=== PATIENT | female | born 1940 | race Caucasian/White ===

== ENCOUNTER 2017-08-21 10:24 | Emergency (ER) | payer MEDICARE, OTHER ==
[2017-08-21 10:43] VITALS: BP 141/48
[2017-08-21] MEDS ORDERED: HYDROcodone/ACETAMIN 5-325 MG* 1 TAB PO ONE (12:55)
--- NOTE | 2017-08-21 13:02 | ED ---
Skin Complaint - HPI Summary HPI Summary: Patient presents to the ED with CC of left lateral lower leg wound which has been worsening. She arrives with family who state she was bitten by a insect/ spider 9-10 days ago and was seen at the wound clinic on 08/14/17. She was placed on Clindamycin 500mg BID at that time and the wounds were cleansed and dressed. She returned yesterday for a re-check and family notes the wound has been getting worse. Wound clinic agreed and placed her on a cream. She states this cream has made her wound worse and is causing worsening pain. She notes to pain at 8/10 not improved on Tramadol. She is a patient of Dr. Maurer, Dr. Wing and Dr. Bailey and sees the wound clinic. She has multiple co- morbidities including diabetes, PAD, PVD, cancer. She notes to some nausea with the medication of tramadol and sometimes spontaneously. Wound: Well demarcated erythematous area with full thickness tissue loss measuring 4.5x5cm without eschar with yellow epithelial tissue. Subcutaneous fat not visible; destruction does not extend into muscle. 1.5x2cm Deeper full thickness tissue loss with the base of the ulcer is covered by slough with surrounding eschar. Suspected deep tissue injury. Purple localized area of discolored intact skin surrounding the wound. Afebrile, VS stable. She is requesting better pain control and would like to DC tramadol. - History of Current Complaint Chief Complaint: EDExtremityLower Time Seen by Provider: 08/21/17 11:34 Stated Complaint: LT LEG WOUND RECHECK Hx Obtained From: Patient Onset/Duration: Started Weeks Ago Skin Exposure Onset/Duration: Weeks Ago Timing: Constant Onset Severity: Moderate Current Severity: Moderate Pain Intensity: 8 Pain Scale Used: 0-10 Numeric Skin Location: Discrete - left lateral lower extremity just proximal to the ankle joint Character: Pain, Redness Aggravating Symptom(s): Nothing Alleviating Symptom(s): Nothing Associated Signs & Symptoms: Nausea Related History: Trauma, Insect Bite/Sting, Diabetes, PVD, Extremes of Age - Additional Pertinent History Primary Care Physician: [id number] - Allergy/Home Medications Allergies/Adverse Reactions: Allergies Allergy/AdvReac Type Severity Reaction Status Date / Time Sulfa Drugs Allergy Severe Difficulty Verified 08/01/15 08:05 Breathing PMH/Surg Hx/FS Hx/Imm Hx Previously Healthy: No - see HPI Endocrine/Hematology History: Reports: Hx Diabetes - DMI II Cardiovascular History: Reports: Hx Hypertension, Other Cardiovascular Problems/ Disorders - ATRIAL FIBRULATION Denies: Hx Pacemaker/ICD Musculoskeletal History: Reports: Hx Arthritis - HIP,, Other Musculoskeletal History - RIGHT HIP BOTHERS HER AFTER WALKING,PAIN DOWN LEG,NO XRAYS Sensory History: Reports: Hx Contacts or Glasses - GLASSES, Hx Glaucoma Opthamlomology History: Reports: Hx Contacts or Glasses - GLASSES, Hx Glaucoma Psychiatric History: Denies: Hx Panic Disorder - Cancer History Hx Chemotherapy: No Hx Radiation Therapy: No - Surgical History Surgery Procedure, Year, and Place: [facility]-2-3 YRS AGO,SNARE,CATARACTS , TEENAGER-ACCESSORY BONE ON ANKLE, D+C'S Hx Anesthesia Reactions: No - Immunization History Date of Tetanus Vaccine: UNKNOWN Date of Influenza Vaccine: 2011 Hx Pertussis Vaccination: No Immunizations Up to Date: Unable to Obtain/Confirm Infectious Disease History: Yes Infectious Disease History: Denies: Traveled Outside the [place] in Last 30 Days - Social History Occupation: Retired Lives: With Family Alcohol Use: Rare Alcohol Amount: WINE 2-3 Hx Substance Use: No Substance Use Type: Reports: None Hx Tobacco Use: Yes Smoking Status (MU): Former Smoker Have You Smoked in the Last Year: No Review of Systems - ROS Summary Review of Systems Summary: Constitutional: The patient denies fever, ROUSE. HEENT: Head: The patient denies headaches or dizziness. Eyes: The patient denies diplopia, blurry vision, eye pain, eye discharge, photophobia. Throat: The patient denies sore throats or hoarseness. Cardiovascular: The patient denies chest pain, palpitations, syncope, night cramps, or orthostasis. Respiratory: The patient denies cough, sputum production, hemoptysis, dyspnea, wheezing. Gastrointestinal: The patient denies odynophagia, dysphagia, hematemesis, melenemesis. Denies abdominal pain, nausea or vomiting. Denies constipation or diarrhea. Genitourinary: Patient denies dysuria, hematuria, or pyuria. Patient denies back pain. Denies vaginal discharge, vaginal bleeding. Denies other urinary symptoms. Endocrine: The patient denies polydipsia, polyuria, or polyphagia. Muscles: The patient denies myalgia, strain or weakness. Joints: The patient denies arthralgia and/or arthritis. Neurologic: The patient denies headache, loss of consciousness, or seizure. Dermatologic: The patient denies hyperpigmentation, rash, or photosensitivity. Skin: Unhealing wound: SEE HPI Constitutional: Negative Negative: Fever, Chills, Fatigue, Skin Diaphoresis Eyes: Negative Cardiovascular: Negative Respiratory: Negative Negative: Shortness Of Breath, Cough Positive: Nausea. Negative: Abdominal Pain, Vomiting, Diarrhea Genitourinary: Negative Positive: no symptoms reported, see HPI Positive: Arthralgia - lower extremity, Myalgia Positive: Other - see HPI Neurological: Negative Psychological: Normal All Other Systems Reviewed And Are Negative: Yes Physical Exam - Summary Physical Exam Summary: Appearance: WDW, comfortable, pleasant, alert Skin: Soft dry skin. PVD. PAD. Cap refill <2. Pulses + 2 bilaterally. Well demarcated erythematous area with full thickness tissue loss measuring 4.5x5cm without eschar with yellow epithelial tissue. Subcutaneous fat not visible; destruction does not extend into muscle. 1.5x2cm Deeper full thickness tissue loss with the base of the ulcer is covered by slough with surrounding eschar. Suspected deep tissue injury. Purple localized area of discolored intact skin surrounding the wound. Increasing erythema/cellulitis of the surrounding skin > 2 cm per family; No induration of surrounding skin; no lymphangitis, there is not a large amount of drainage from the area. Wound is without odor. Eyes: EDA, EOMI, Conjunctiva pink with no redness or exudates. Mouth: Dentition without lesions. Moist mucosa Neck: Full range of motion. Palpable thyroid. Trachea at midline. No lymphadenopathy. Pulm: Chest symmetrical expansion. No deformities on posterior chest wall. Lungs clear to auscultation and percussion, without adventitious sounds. CV: No JVD. No deformities on anterior chest wall. Heart soundsRRR, Normal S1 and single S2. No S3, S4, rubs, or murmurs. Carotids 2+ bilaterally without bruits. . exam not performed Musculoskeletal: Flexion and extension of neck limited d/t pain. Brudzynski and Kernig sign negative. No deformities noted. Pulses full and equal. Neuro: Motor strength is 5/5 in upper and lower extremities bilaterally. A&OX3 Psych: Logical, coherent Triage Information Reviewed: Yes Vital Signs On Initial Exam: Initial Vitals Temp Pulse Resp BP Pulse Ox 98.6 F 54 20 141/48 97 08/21/17 10:40 08/21/17 10:40 08/21/17 10:40 08/21/17 10:40 08/21/17 10:40 Vital Signs Reviewed: Yes Appearance: Positive: Well-Appearing, Well-Nourished, Pain Distress Skin: Positive: Warm - see HPI, Tender, Purpura, Weeping Skin/Lesions Eyes: Positive: Normal, EDA ENT: Positive: Normal ENT inspection, Hearing grossly normal Neck: Positive: Supple, No Lymphadenopathy Respiratory/Lung Sounds: Positive: Clear to Auscultation, Breath Sounds Present Cardiovascular: Positive: Normal, RRR Musculoskeletal: Positive: Normal, Strength/ROM Intact Neurological: Positive: Sensory/Motor Intact, Alert, Oriented to Person Place, Time, Speech Normal Psychiatric: Positive: Normal AVPU Assessment: Alert - [place]ise[place] Coma Scale Best Eye Response: 4 - Spontaneous Best Motor Response: 6 - Obeys Commands Best Verbal Response: 5 - Oriented Diagnostics - Vital Signs Vital Signs Temp Pulse Resp BP Pulse Ox 08/21/17 10:40 98.6 F 54 20 141/48 97 - Laboratory Lab Statement: Any lab studies that have been ordered have been reviewed, and results considered in the medical decision making process. Re-Evaluation - Re-Evaluation First Eval Change: Improved - improved since NORCO Course/Dx - Course Course Of Treatment: Patient arrives to the ED with CC of left lateral lower extremity wound just proximal to the ankle joint with worsening symptoms. Conversation with family regarding care of wound and other co-morbidities the patient is currently dealing with. Long conversation to assess wound and the care she has been receiving. It was explained to patient and family d/t wound not improving and becoming now worse x 2 days despite the new cream medication, I have encouraged her to reach out to wound clinic to see if they are able to assess more frequently (twice per week) until improvement is achieved. This is d/t her significant co-morbidities and deferment of quick improvement. Family spoke with Dr. Gimenez during ED visit and Madelin at wound clinic who agree to see her on / of next week along with a MRI to assess for osteomyelitis. They will follow up with cardiology and Dr. Marcos in infectious disease next week as well. I am providing them a referral to Dr. Marcos as is the wound clinic. Culture was obtained from the wound 2 days prior so will not obtain another culture at this time. They are most concerned with pain control. I have discussed at length the risks and benefits of switching to an opioid. She did not have good pain control on Tramadol or Codeine. Provider is willing to provide a max 5 days worth or NORCO 5-235 Q6H with a close follow up for further pain management as Dr. Wing sees fit. Tramadol to Opioid Conversion ratio was assessed. Q6H should provide better pain control without excess side effects. They agree with this plan. Close return precautions given and side effects explained. Also provided a script for Zofran for any opioid- induced nausea. The wound was measured to assess for staging purposes and worsening infection or improvement. She is feeling improved on discharge. Family is OK with plan. The wound dressing was changed. Triple abx ointment applied and non-adhesive stick gauze applied to wound with wrap. VNS service will begin to change the bandages at home starting next week. - Differential Diagnoses - Skin Complaint Differential Diagnoses: Abscess, Other - cellulitis, eschar, deep tissue wound - Diagnoses Provider Diagnoses: Chronic wound of extremity Discharge - Discharge Plan Condition: Stable Disposition: HOME Prescriptions: HYDROcodone/ACETAMIN 5-325 MG* [[place] 5-325 TAB*] 1 tab PO Q6H PRN #20 tab MDD 4 PRN Reason: Pain Ondansetron ODT TAB* [Zofran 4 MG Odt TAB*] 4 mg PO Q6H PRN #20 tab.odt MDD 4 PRN Reason: Nausea Patient Education Materials: Wound Infection (ED), Chronic Wounds (ED) Referrals: Chemo ANGELES,Jamir Ballard [Medical Doctor] - Navya Stanford NP [Primary Care Provider] - Additional Instructions: Follow up with Dr. Marcos - my note will go to him for evaluation. Call Dr. Wing today for appt Keep other appts as scheduled Continue to dress and cleanse the wound as directed through the wound clinic As discussed, we are deciding to discontinue the Tramadol and the Tylenol We will start the Hydrocodone-Acetaminophen 5/325 (NORCO) medication This is an opiod and as discussed, has more side effects than tramadol including constipation I recommend you continue Miralax daily while taking the NORCO unless you are experiencing diarrhea or looser stools Do not drive or operate machinery with this medication You may want to avoid other activities while on this medication until you know how it affects you If you develop any shortness of breath, altered mental status, confusion, lethargy or decreased or slowed breathing - you need to STOP this medication and return to the ED immediately. PLEASE only take this medication if your pain is not well controlled on TYLENOL alone. However, if you choose to take this medication, you MUST stop the tylenol as this medication has Tylenol within it. I am also giving you Zofran. This is an anti-nausea medication and dissolves under the tongue. You may take this at the first onset of nausea or 30 minutes prior to taking your NORCO to prevent opioid-induced nausea Do not exceed more than 4x per day. Wound appears to be stable and at this time am not recommending a change in antibiotics or admission to the hospital. It is very important you follow up with Dr. Wing for further evaluation of your pain control.
== END 2017-08-21 14:44 | disposition home or self-care (01) ==
LOC: ED 10:24
DX: S80.862A Insect bite (nonvenomous), left lower leg, initial encounter (principal); W57.XXXA Bitten or stung by nonvenomous insect and other nonvenomous arthropods, initial encounter; Y93.9 Activity, unspecified; Y92.9 Unspecified place or not applicable; Z87.891 Personal history of nicotine dependence
CPT/HCPCS: 99282

== ENCOUNTER 2017-08-25 14:47 | Inpatient (IN) | payer MEDICARE, OTHER ==
[2017-08-25] MEDS ORDERED: NS 0.9% 1000 ML* 1,800 ML IV ONE (15:48)
[2017-08-25] MEDS ORDERED: Ondansetron INJ* 2 MG/ML VIAL IV ONE (15:48)
[2017-08-25] MEDS ORDERED: Vancomycin(*) 1,000 MG VIAL IVPB SCH (16:00)
[2017-08-25 16:16] LABS: Hematocrit 26 % (35-47); Hemoglobin 8.6 g/dl (12.0-16.0); Mean Corpuscular HGB Conc 34 g/dl (31-36); Mean Corpuscular Hemoglobin 30 pg (27-31); Mean Corpuscular Volume 88 fL (80-97); Mean Platelet Volume 7 um3 (7.4-10.4); Red Cell Distribution Width 16 % (10.5-15); White Blood Count 1.6 10^3/ul (3.5-10.8)
[2017-08-25] MEDS ORDERED: Acetaminophen TAB* 325 MG ONE (16:18)
[2017-08-25 16:19] LABS: Add Diff/Slide Review? Slide Review Added; Comments Flag Yes
[2017-08-25] MEDS ORDERED: Acetaminophen TAB* 325 MG PO ONE (16:22)
--- NOTE | 2017-08-25 16:31 | RAD ---
Indication: Wound at the left sorensen Comparison: None. Technique: AP and lateral views left lower leg. Report: The visualized bones are adequately corticated and well aligned. There is no acute fracture, dislocation or other focal abnormality. The soft tissues appear grossly normal. IMPRESSION: Normal left lower leg radiograph. If the patient's symptoms persist, follow-up imaging is recommended.
[2017-08-25 16:38] LABS: Troponin I 0.04 ng/mL (<0.04)
--- NOTE | 2017-08-25 16:42 | RAD ---
INDICATION: Hypotension COMPARISON: Similar chest x-ray dated August 01, 2017 TECHNIQUE: PA and lateral views of the chest were obtained. FINDINGS: The heart and mediastinum are normal in size and contour. There is coarse atherosclerotic calcification at the arch of the aorta similar to the prior chest x-ray. There is stable coarse calcification at the expected location of the mitral valve. The lungs are grossly clear. There is no evidence of large pleural effusion. Visualized bones are normal for the patient's age. There is no radiographic evidence of free air beneath the diaphragm IMPRESSION: No radiographic evidence of acute cardiopulmonary disease.
[2017-08-25 16:44] LABS: Albumin 3.4 g/dL (3.2-5.2); C Reactive Protein 13.75 mg/L (< 5.00); Calcium 8.4 mg/dL (8.6-10.3); EGFR African American 34.5 (>60); EGFR Non-African American 26.8 (>60); Globulin 2.7 g/dL (2-4); Magnesium 1.3 mg/dL (1.9-2.7); Potassium 4.1 mmol/L (3.5-5.0); Total Bilirubin 0.3 mg/dL (0.2-1.0); Total Protein 6.1 g/dL (6.4-8.9)
[2017-08-25 16:59] LABS: TSH (Thyroid Stimulating Horm) 0.42 mcIU/mL (0.34-5.60)
[2017-08-25] MEDS ORDERED: Vancomycin(*) 1,000 MG - ED ONCE IVPB ONE ×2 (17:00)
--- NOTE | 2017-08-25 17:19 | ED ---
Adrian Ariza Thomas, scribed for John Guadalupe MD on 08/25/17 at 1557 . Complex/Multi-Sys Presentation - HPI Summary HPI Summary: The pt is a 77 y/o F referred from her PMD Dr. Mclain with a wound to her left sorensen that has been present for the last four months. At her PMDs office, the patients blood pressure was low, prompting a referral to the ED. The patients blood pressure in the ED is 77/36. She has been seen at the wound clinic for the last few weeks for this wound. She was put on an unspecified antibiotic that did not treat an unspecified bacteria, so she was referred to infectious control. In the ED she complains of pain to the area of the wound. For the last week she has c/o lightheadedness (when sitting up), SOB, decreased appetite, N/V (she last vomited five days ago), diarrhea (brown), urinary urgency, fatigue, decreased urine output, and dark urine. She has decreased urine output. Pt denies CP, abd pain, back pain, bloody stools, cough, and chills. She has not had problems with her legs previous to this wound. She was last given Tylenol today at 07:00. She is on two extra strength Tylenol TID. PMHx: DM, A-Fib, anemia. PSHx: hip replacement, tonsillectomy cataracts, D&C, carpel tunnel. She is accompanied by her daughter, son and two grandchildren. Her PCP is Navya Mares. - History Of Current Complaint Chief Complaint: EDGeneral Time Seen by Provider: 08/25/17 15:32 Hx Obtained From: Patient, Family/Roof Tile Layer - four family members are in the room Onset/Duration: Sudden Onset, Lasting Hours - referred from Dr. Mclain's office earlier today, Still Present Timing: Constant Aggravating Factor(s): None Alleviating Factor(s): None Associated Signs And Symptoms: Positive: SOB, Nausea, Vomiting, Diarrhea, Dysuria, Other - Hypotensive, Lightheadedness, decreased appetite, urinary urgency, dark urine, fatigue, decreased urine output; NEGATIVE: bloody stools, chills. Negative: Cough, Chest Pain, Abdominal Pain, Back Pain - Allergies/Home Medications Allergies/Adverse Reactions: Allergies Allergy/AdvReac Type Severity Reaction Status Date / Time Sulfa Drugs Allergy Severe Difficulty Verified 08/01/15 08:05 Breathing Home Medications: Home Medications Azelastine 0.15% NASAL(NF) [Astepro 0.15% NASAL (NF)] 1 spray NASAL BID [History Confirmed 08/25/17] Gabapentin CAP(*) [Neurontin 100 mg CAP(*)] 100 mg PO BEDTIME 08/25/17 [History Confirmed 08/25/17] PMH/Surg Hx/FS Hx/Imm Hx Previously Healthy: No Endocrine/Hematology History: Reports: Hx Diabetes - DMI II Cardiovascular History: Reports: Hx Hypertension, Other Cardiovascular Problems/ Disorders - ATRIAL FIBRULATION Denies: Hx Pacemaker/ICD Musculoskeletal History: Reports: Hx Arthritis - HIP,, Other Musculoskeletal History - RIGHT HIP BOTHERS HER AFTER WALKING,PAIN DOWN LEG,NO XRAYS Sensory History: Reports: Hx Contacts or Glasses - GLASSES, Hx Glaucoma Opthamlomology History: Reports: Hx Contacts or Glasses - GLASSES, Hx Glaucoma Psychiatric History: Denies: Hx Panic Disorder - Cancer History Hx Chemotherapy: No Hx Radiation Therapy: No - Surgical History Surgery Procedure, Year, and Place: [facility]-2-3 YRS AGO,SNARE,CATARACTS , TEENAGER-ACCESSORY BONE ON ANKLE, D+C'S Hx Anesthesia Reactions: No - Immunization History Date of Tetanus Vaccine: UNKNOWN Date of Influenza Vaccine: 2011 Infectious Disease History: No Infectious Disease History: Denies: Traveled Outside the [place] in Last 30 Days - Family History Known Family History: Positive: Cardiac Disease, Other - Dementia - Social History Alcohol Use: Rare Alcohol Amount: WINE 2-3 Hx Substance Use: No Substance Use Type: Reports: None Hx Tobacco Use: Yes Smoking Status (MU): Former Smoker Have You Smoked in the Last Year: No Review of Systems Positive: Fatigue. Negative: Chills Positive: Other - Hypotensive. Negative: Chest Pain Positive: Shortness Of Breath. Negative: Cough Positive: Vomiting, Diarrhea, Nausea, Other - Decreased appetite; NEGATIVE: bloody stools. Negative: Abdominal Pain Positive: urgency, other - Dark urine, decreased urine output Positive: Other - NEGATIVE: back pain Neurological: Other - Lightheadedness All Other Systems Reviewed And Are Negative: Yes Physical Exam Triage Information Reviewed: Yes Vital Signs On Initial Exam: Initial Vitals Temp Pulse Resp BP Pulse Ox 98.3 F 61 16 77/36 100 08/25/17 14:54 08/25/17 14:54 08/25/17 14:54 08/25/17 14:54 08/25/17 14:54 Appearance: Positive: No Pain Distress, Ill-Appearing - very tired, but normal mental status and alert and very conversive. Skin: Positive: Other - cellulitis surrounding the left lateral leg ulcer. Head/Face: Positive: Normal Head/Face Inspection Eyes: Positive: EOMI ENT: Positive: Normal ENT inspection, Hearing grossly normal Respiratory/Lung Sounds: Positive: Clear to Auscultation, Breath Sounds Present Cardiovascular: Positive: RRR. Negative: Murmur Abdomen Description: Positive: Nontender, No Organomegaly Bowel Sounds: Positive: Present Musculoskeletal: Positive: Other - tender over the left lateral leg with ulcer and cellulitis surrounding the ulcer. SHe has strong DP and PT pulses left foot Neurological: Positive: Sensory/Motor Intact, Alert, Oriented to Person Place, Time, CN Intact II-III Psychiatric: Positive: Normal - [place] Coma Scale Best Eye Response: 4 - Spontaneous Best Motor Response: 6 - Obeys Commands Best Verbal Response: 5 - Oriented Diagnostics - Vital Signs Vital Signs Temp Pulse Resp BP Pulse Ox 08/25/17 15:24 47 18 99 08/25/17 14:54 98.3 F 61 16 77/36 100 - Laboratory Lab Results: Lab Results 08/25/17 08/25/17 08/25/17 Range/Units 15:55 15:55 15:55 WBC 1.6 L (3.5-10.8) 10^3/ul RBC 2.90 L (4.0-5.4) 10^6/ul Hgb 8.6 L (12.0-16.0) g/dl Hct 26 L (35-47) % MCV 88 (80-97) fL MCH 30 (27-31) pg MCHC 34 (31-36) g/dl RDW 16 H (10.5-15) % Plt Count 150 (150-450) 10^3/ul MPV 7 L (7.4-10.4) um3 Neut % (Auto) 64.2 (38-83) % Lymph % (Auto) 20.4 L (25-47) % [place] % (Auto) 13.6 H (1-9) % Eos % (Auto) 0.9 (0-6) % Baso % (Auto) 0.9 (0-2) % Absolute Neuts (auto) 1.0 L (1.5-7.7) 10^3/ul Absolute Lymphs (auto) 0.3 L (1.0-4.8) 10^3/ul Absolute Monos (auto) 0.2 (0-0.8) 10^3/ul Absolute Eos (auto) 0 (0-0.6) 10^3/ul Absolute Basos (auto) 0 (0-0.2) 10^3/ul Absolute Nucleated RBC 0 10^3/ul Nucleated RBC % 0.1 Sodium Pending Potassium Pending Chloride Pending Carbon Dioxide Pending Anion Gap Pending BUN Pending Creatinine Pending Est GFR ( Amer) Pending Est GFR (Non-Af Amer) Pending BUN/Creatinine Ratio Pending Glucose Pending Calcium Pending Magnesium Pending Total Bilirubin Pending AST Pending ALT Pending Alkaline Phosphatase Pending Total Creatine Kinase Pending Troponin I 0.04 H* (<0.04) ng/mL C-Reactive Protein Pending B-Natriuretic Peptide 968 H ( - 100) pg/mL Total Protein Pending Albumin Pending Globulin Pending Albumin/Globulin Ratio Pending TSH Pending Result Diagrams: 08/25/17 15:55 08/25/17 15:55 Lab Statement: Any lab studies that have been ordered have been reviewed, and results considered in the medical decision making process. - Radiology XR LLE Xray Interpretation: No Acute Changes - XR Lower leg shows normal left lower leg radiograph. ED physician has reviewed this radiology report and agrees. Radiology Interpretation Completed By: Radiologist CXR Xray Interpretation: No Acute Changes - CXR shows no radiographic evidence for acute cardiopulmonary disease. ED physician has reviewed this radiology report and agrees. Radiology Interpretation Completed By: Radiologist - EKG 16:44 Cardiac Rate: Tachycardia - 104 BPM EKG Interpretation: A-Fib, no STEMI. Re-Evaluation - Re-Evaluation First Eval Re-Evaluation Time: 18:45 Change: Improved Comment: results discussed with family, and she will be admitted for further treatment to the hospitalists service. Patient BP in high 90s. Complex Multi-Symp Course/Dx Assessment/Plan: The pt is a 77 y/o F referred from her PMD Dr. Mclain with a wound to her left sorensen that has been present for the last four months. She is hypotensive and for the last week she has c/o lightheadedness (when sitting up) , SOB, decreased appetite, N/V (she last vomited five days ago), diarrhea (brown ), urinary urgency, fatigue, decreased urine output, and dark urine. She has decreased urine output. The patient was given IV fluids, Zofran, vancomycin, and Zosyn. Bloodwork shows lactic acid 5.0, troponin 0.04, BNP 968, CRP 13.75, creatinine 1.83, sodium 130, chloride 96. EKG shows A-Fib with no STEMI. CXR shows no radiographic evidence for acute cardiopulmonary disease. XR Lower leg shows normal left lower leg radiograph. ED physician has reviewed this radiology report and agrees. CT abd and pelvis ordered due to patient stating she had pain in the past few days, but has no abdominal pain in the ED. - Diagnoses Provider Diagnoses: Sepsis affecting skin, Cellulitis, leg - Physician Notifications Discussed Care Of Patient With: Micky Diaz Time Discussed With Above Provider: 16:48 Instructed by Provider To: Other - I consulted with Dr. Diaz, hospitalist, who will admit the patient. - Critical Care Time Critical Care Time: 30-74 min Discharge - Discharge Plan Condition: Fair Disposition: ADMITTED TO [facility] documentation as recorded by the Adrian portillo Thomas accurately reflects the service I personally performed and the decisions made by , John Guadalupe MD.
[2017-08-25] MEDS ORDERED: Morphine INJ* 2 MG/ML 1 ML CARPUJECT ONE (17:24)
[2017-08-25] MEDS: Morphine INJ* 4 MG/ML 1 ML CARPUJECT IV PRN ×2 (17:26→21:54)
--- NOTE | 2017-08-25 18:08 | RAD ---
CLINICAL HISTORY: Pain. "Patient hasn't eaten well past couple of weeks) COMPARISON: Similar CT examination dated June 28, 2015 TECHNIQUE: Noncontrast CT examination of the abdomen and pelvis from the lung bases through the initial tuberosities. FINDINGS: VISUALIZED LUNG BASES: The visualized lung bases are grossly clear. There is no pleural effusion. Again seen is coarse calcification overlying the aortic valve. ABDOMEN AND PELVIS: Evaluation of the solid organs and vasculature is limited without intravenous contrast. There is a stable subcentimeter focal hypodensity in the right lobe of the liver unchanged from the prior CT examination. The liver is otherwise homogenous in attenuation. The spleen, pancreas and adrenal glands are grossly normal in appearance. The gallbladder is normal. The kidneys are normal in appearance without focal mass, calcification or signs of hydronephrosis. The small and large bowel are not distended.The patient's normal appendix is identified in the right lower quadrant measuring 5 mm in diameter (axial image 47 and coronal image 50). There are scattered rectosigmoid diverticula but none exhibit focal inflammatory change.. There is no gross retroperitoneal or mesenteric lymphadenopathy. Calcifications overlying the uterus are likely chronic fibroids. There is coarse atherosclerotic calcification of the infrarenal abdominal aorta extending into the bilateral iliac arteries. There is coarse calcification at the splenic artery. Multilevel degenerative changes of the thoracic spine includes loss of intervertebral disc height, marginal osteophyte formation and multilevel vacuum disc phenomenon. The right hip prosthesis is anatomically aligned. There are no sinister bone lesions. IMPRESSION: Widespread chronic, degenerative and iatrogenic findings described in body the report I do not exhibit substantial change when compared to the June 28, 2015 CT examination. There are no acute abnormalities apparent on a noncontrast CT examination.
[2017-08-25] MEDS ORDERED: Vancomycin per Pharmacy* NOTE FOLLOW UP PRN (18:42)
[2017-08-25] MEDS ORDERED: Zosyn per Pharmacy* NOTE FOLLOW UP SCH (19:00)
[2017-08-25] MEDS ORDERED: Vancomycin(*) 0 MG in NS 0.9% 250 ML* 250 ML IVPB SCH (19:00)
[2017-08-25 20:03] LABS: Urine Bilirubin Negative (Negative); Urine Glucose Negative (Negative); Urine Nitrite Negative (Negative)
[2017-08-25] MEDS: Acetaminophen TAB* 325 MG PO PRN (20:07)
[2017-08-25] MEDS: Atorvastatin* 20 MG TAB PO SCH (20:08)
[2017-08-25] MEDS: Gabapentin CAP(*) 100 MG PO SCH (20:08)
[2017-08-25] MEDS: Dronedarone TAB* 400 MG PO SCH (20:08)
[2017-08-25] MEDS: ZOSYN 3.375 GM Q8H per EXTENDED INFUSION IVPB SCH ×2 (20:31)
[2017-08-25] MEDS ORDERED: Dabigatran CAP(NF) 150 MG CAP PO SCH (21:00)
--- NOTE | 2017-08-25 23:02 | HP ---
HISTORY AND PHYSICAL: DATE OF ADMISSION: 08/25/17 ADMITTING PHYSICIAN: Micky Diaz MD PRIMARY CARE PROVIDER: Navya Calderon NP at [place]. CHIEF COMPLAINT: Progressive left lower calf ulcer that has not been healing despite 3 oral antibiotics; night sweats, chills, light-headedness. (sent directly from Dr. Mclain's clinic today). PAST MEDICAL HISTORY: 1. Coronary artery disease. 2. Type 2 diabetes. 3. Hypertension. 4. Hyperlipidemia. 5. Atrial fibrillation, on Pradaxa. 6. GERD. 7. Chronic back pain. 8. Severe right hip osteoarthritis, status post right total hip in 2014. HISTORY OF PRESENT ILLNESS: Shelbie Reid is a 77-year-old female with past medical history as above, who since May 2017 has had progressive left calf ulcer. Initially while sitting near [place] noticed some discomfort on her left calf, possibly a bite of some sort, she has had a progressive nonhealing ulcer despite treatment with 3 different antibiotics, first cephalexin on 06/12/17 and next doxycycline on 06/27/17 and the patient just finished course of ciprofloxacin 500 mg p.o. b.i.d. The patient had a culture of this wound on , which demonstrated growth of Providencia rettgeri. She had been following with the [facility] and has had progressive ulceration, uncontrolled pain for which she was just evaluated in the ED 4 days prior to admission and sent home with the order of Percocet. The patient had also tried tramadol at home but has been having a lot of nausea with this medication. The patient presented and has also been complaining of chills and had soaking night sweats over the last few days. She was very dizzy. She followed with Dr. Mclain in his office today, was noted to have blood pressure of 92/45 and was sent directly from his clinic to the emergency room. Here her blood pressures were 77/36, improving to 98/57 after some IV fluids. Initial labs were significant for lactic acidosis of 5.0, leukopenia, white blood count of 1.6, moderate neutropenia at 1000, INR elevated at 3.00, aPTT 119.5. Troponin 0.04. BNP 968. C-reactive protein 13.75. Creatinine 1.83, up from 1.14 on . Sodium 130, magnesium 1.3. The patient was started on broad- spectrum antibiotics with vancomycin and Zosyn in the emergency room for sepsis, suspected secondary to her nonhealing leg ulcer, admitted to Medicine telemetry for further evaluation. PAST SURGICAL HISTORY: Right total hip arthroplasty, 2014. HOME MEDICATIONS: Include: 1. Lisinopril 40 mg daily. 2. Pradaxa 150 mg b.i.d. 3. Metformin 1000 p.o. b.i.d. 4. Amlodipine 10 mg daily. 5. Metoprolol tartrate 12.5 mg p.o. b.i.d. 6. Aspirin 81 mg daily. 7. Astepro 0.15% nasal saline spray nasal b.i.d. 8. Cholecalciferol 2000 units p.o. daily. 9. Multaq 400 mg p.o. b.i.d. 10. Clonidine tab 0.1 mg p.o. b.i.d. to t.i.d. (of note, listed for anxiety) in family's paperwork provided by daughter. 11. Zofran 4 mg p.o. q.6 hours p.r.n. for nausea. 12. Tramadol 15 mg p.o. q.6 hours p.r.n. 13. Mupirocin 2% ointment topical b.i.d. 14. Collagenase (Santyl) 1 application topical daily. 15. Gabapentin 100 mg p.o. q.h.s. 16. Hydrocodone/acetaminophen 1 tab p.o. q.6 hours p.r.n. ALLERGIES: Include ANAPHYLAXIS to SULFA. The patient did not really tolerate MEDIHONEY, BACITRACIN, or MUPIROCIN yielding stinging pain 6/10. SANTYL creates 10/10 stinging pain. SALINE WOUND CLEANSER 6/10 pain. OXYCONTIN, PERCOCET create agitation, shaky arms at night. HYDROCODONE created loss of appetite, nausea, and disorientation. TRAMADOL created nausea and sleepiness. LIDOCAINE 4% NUMBING AGENT created stinging pain 7/10, but could tolerate 2%. FAMILY MEDICAL HISTORY: Noncontributory to her leg ulcer. SOCIAL HISTORY: The patient is accompanied at bedside by family including son, Primo Reid and Amy Arboleda (Peggy), who are co-surrogate medical decision makers. Of note, the patient's has dementia. The patient is a former smoker. REVIEW OF SYSTEMS: A 14-point review systems was negative except for fevers, chills, likely rigors, lightheadedness, dizziness, uncontrolled left ulcer pain , nausea associated with tramadol use. The patient denies headaches, rashes elsewhere on her body, sick contacts, shortness of breath, chest pain, muscle weakness. Does attest to right hip pain. No dysuria or urinary frequency. PHYSICAL EXAMINATION GENERAL: The patient is sitting in bed in some moderate distress from pain. HEENT: Normocephalic, atraumatic. No scleral icterus. Extraocular movements intact. Pupils equally round and reactive to light. No oropharynx lesions. Moist mucous membranes. NECK: Supple. No cervical lymphadenopathy. RESPIRATORY: Lungs bilaterally clear to auscultation bilaterally without wheezing, rales, or rhonchi. CARDIOVASCULAR: Irregular rate and rhythm, currently tachycardic. No murmurs, rubs, or gallops. ABDOMEN: Soft, nontender, nondistended. No rebound. No guarding. Mo Mejia' s sign. EXTREMITIES: Left lateral calf with Y shaped ulceration along lateral surface with surrounding erythema. These are joined by another eschar at the proximal anterior edge and 2 smaller eschars at the posterior inferior margin. No candida purulence. Ulceration is tender. There is yellow fibrinous tissue seen within this Y shaped ulceration. Total dimensions of these 4 lesions are approximately 6 x 8 cm and to the depth of a third of a centimeter. Peripheral pulses are intact. No significant swelling bilaterally. IMAGING: Additional imaging studies obtained previously to admission include arterial lower extremity Doppler which on 08/18/17 with normal ABIs at multiple levels. Of note, there was a slight modification in morphology of the waveforms at the right popliteal artery from greater amplitude triphasic waveforms to lesser amplitude biphasic waveforms, do suggest but is not proven of some arterial flow limitation between the mid SFA and popliteal artery duplex. Venous Doppler on 08/01/17 showed no evidence of thrombosis but reflux was noted in the left greater saphenous vein and its mid distal portion. The patient also had additional ankle brachial index measurements on 08/04/17, which showed no compelling evidence for hemodynamically significant inflow disease or intrinsic lower extremity arterial stenosis. REPORT: Microbiology reports from wound culture on 08/13/17, Providencia rettgeri resistant to ampicillin, cefazolin, nitrofurantoin, tetracycline; sensitive to cefepime, ceftriaxone, ciprofloxacin, gentamicin, levofloxacin, meropenem, Zosyn, Bactrim, aztreonam. ASSESSMENT AND PLAN: The patient is a 77-year-old female. Medical comorbidities include paroxysmal atrial fibrillation, coronary artery disease, osteoarthritis, hypertension, presenting with nonhealing left leg ulcer for the last 3 months despite 3 oral antibiotics and followup with wound care. Presumptive bacteria involved is Providencia rettgeri, although must also include possible inflammatory vasculitis and peripheral vascular disease in our differential screen with continuation of empiric antibiotics vancomycin and Zosyn until further evaluation by Dr. Mclain, Infectious Disease, who saw her in the office on day of admission. The patient presented with sepsis, lactic acidosis of 5.0. We will continue with IV hydration and repeat lactic acid measurement later tonight. She is also leukopenic and moderately neutropenic, all the more reason to continue antipseudomonal coverage for now, although currently afebrile. We will follow up her blood cultures, wound consult has been placed. We will hold her Pradaxa for now, given her elevated aPTT of 119 and INR of 3.00. Repeat in AM and if still elevated evaluate for potential disseminated intravascular coagulation from sepsis would get haptoglobin, LDH and fibrinogen. For her acute kidney infection with creatinine 1.83, up from baseline of approximately 1.1 to 1.2 earlier this summer, we will get urine lytes with urine sodium, urine random creatinine, and urine urea to establish FEurea and FENa measurements, likely this is acute tubular necrosis from sepsis. Continue cautious IV hydration for now and if there are any signs or problems voiding, we will check postvoid residual and replace Marcus versus straight catheterization if evidence of obstruction. For her hyponatremia in the 130, we will continue IV fluids and check BMP again in the morning. BNP was elevated at 968, though not clinically volume overloaded. For atrial fibrillation, we will replete her magnesium of 1.3 with 3 g magnesium and repeat mag levels daily. She will be on telemetry. She is full code and her medical decision makers are her son, Primo Reid, and daughter Amy Arboleda. We will consider further vasculitic studies if the patient does not respond to IV antibiotics with consideration for possible steroid treatment. [id number]/[facility] #: [id number] [facility] HEALTHOneyda
[2017-08-26] MEDS: Morphine INJ* 4 MG/ML 1 ML CARPUJECT IV PRN (02:30)
[2017-08-26 04:55] LABS: Hematocrit 25 % (35-47); Hemoglobin 8.5 g/dl (12.0-16.0); Mean Corpuscular HGB Conc 34 g/dl (31-36); Mean Corpuscular Hemoglobin 29 pg (27-31); Mean Corpuscular Volume 87 fL (80-97); Mean Platelet Volume 7 um3 (7.4-10.4); Red Blood Count 2.91 10^6/ul (4.0-5.4); Red Cell Distribution Width 16 % (10.5-15)
[2017-08-26 04:56] LABS: Comments Flag Yes; White Blood Count 1.6 10^3/ul (3.5-10.8)
[2017-08-26 04:59] LABS: Add Diff/Slide Review? Slide Review Added
[2017-08-26] MEDS: ZOSYN 3.375 GM Q8H per EXTENDED INFUSION IVPB SCH ×6 (05:05→20:32)
[2017-08-26 05:09] LABS: Calcium 7.9 mg/dL (8.6-10.3); EGFR African American 59.6 (>60); EGFR Non-African American 46.3 (>60); Magnesium 2.1 mg/dL (1.9-2.7); Potassium 3.5 mmol/L (3.5-5.0)
[2017-08-26] MEDS: Acetaminophen TAB* 325 MG PO PRN ×2 (05:12→11:18)
[2017-08-26] MEDS ORDERED: Vancomycin Random Level* NOTE FOLLOW UP ONE (06:00)
[2017-08-26 06:04] LABS: Vancomycin Random 7.2 mcg/mL
[2017-08-26] MEDS ORDERED: Metoprolol Tartrate TAB* 25 MG PO ONE (08:32)
[2017-08-26] MEDS: Morphine INJ* 2 MG/ML 1 ML SYRINGE (TWO MG - NEW SYRINGE VERSION) IV PRN ×3 (08:51→19:18)
[2017-08-26] MEDS: Dronedarone TAB* 400 MG PO SCH ×2 (08:51→20:28)
[2017-08-26 09:25] LABS: Troponin I 0.04 ng/mL (<0.04)
[2017-08-26] MEDS: NS 0.9% 1000 ML* 1,000 ML IV SCH ×3 (09:31→22:07)
[2017-08-26] MEDS ORDERED: Vancomycin(*) 1,000 MG in NS 0.9% 250 ML* 250 ML IVPB SCH (10:00)
[2017-08-26] MEDS ORDERED: Morphine INJ* 2 MG/ML 1 ML SYRINGE (TWO MG - NEW SYRINGE VERSION) IV ONE (10:22)
[2017-08-26] MEDS: Bacitracin OINTMENT* 1 TUBE TOPICAL SCH (11:00)
[2017-08-26] MEDS ORDERED: traMADol TAB* 50 MG PO PRN (11:11)
[2017-08-26] MEDS: Ondansetron INJ* 2 MG/ML VIAL IV PRN ×2 (11:13→19:17)
[2017-08-26] MEDS: Ondansetron ODT TAB* 4 MG PO PRN (12:48)
[2017-08-26] MEDS: Metoprolol Tartrate IV* 1 MG/ML 5 ML VIAL IV PRN ×2 (13:10→20:29)
--- NOTE | 2017-08-26 13:21 | RAD ---
Indication: Nonhealing wound LEFT ankle. Comparison: August 18, 2017 ankle-brachial indices and pulse volume recordings. Technique: Arterial ultrasound of the LEFT popliteal, posterior tibial, peroneal, and anterior tibial arteries. Report: Normal triphasic waveforms and peak systolic velocities documented at the popliteal, anterior tibial, tibioperoneal trunk, posterior tibial, and peroneal arteries to the ankle. IMPRESSION: No direct ultrasound evidence for intrinsic occlusion or stenosis of the LEFT popliteal and calf arteries or indirect evidence for hemodynamic significant inflow disease. Negative exam.
[2017-08-26] MEDS: Artificial Tears* 15 ML BTL BOTH EYES PRN (17:42)
--- NOTE | 2017-08-26 17:53 | PN ---
Subjective Date of Service: 08/26/17 Interval History: I saw Ms. Reid this morning and this afternoon; this morning she was complaining of excruciating left leg pain, but this afternoon it is much better. No fevers today, tolerating the medications well. Her wound is dressed with bacitracin. She has had nausea and vomiting throughout the day but feels better now. No diarrhea, constipation. Family History: Unchanged from Admission Social History: Unchanged from Admission Past Medical History: Unchanged from Admission Objective Active Medications: Acetaminophen (Tylenol Tab*) 975 mg PO Q6H PRN PRN Reason: FEVER/PAIN Last Admin: 08/26/17 11:18 Dose: 975 mg Atorvastatin Calcium (Lipitor*) 20 mg PO BEDTIME [facility] Last Admin: 08/25/17 20:08 Dose: 20 mg Bacitracin (Bacitracin Ointment*) 1 applic TOPICAL DAILY [facility] Last Admin: 08/26/17 11:00 Dose: 1 applic Dronedarone (Multaq Tab*) 400 mg PO BID [facility] Last Admin: 08/26/17 08:51 Dose: 400 mg Gabapentin (Neurontin Cap(*)) 100 mg PO BEDTIME [facility] Last Admin: 08/25/17 20:08 Dose: 100 mg Piperacillin Sod/Tazobactam (Sod 3.375 gm/ Sodium Chloride) 100 mls @ 25 mls/ hr IVPB Q8H [facility] Last Admin: 08/26/17 12:48 Dose: 25 mls/hr Sodium Chloride (Ns 0.9% 1000 Ml*) 1,000 mls @ 200 mls/hr IV PER RATE [facility] Last Admin: 08/26/17 16:26 Dose: 200 mls/hr Metoprolol Tartrate (Lopressor Tab*) 12.5 mg PO Q12HR [facility] Metoprolol Tartrate (Lopressor Iv*) 5 mg IV Q6H PRN PRN Reason: HEART RATE/PULSE > 120 MM[facility] Last Admin: 08/26/17 13:10 Dose: 5 mg Morphine Sulfate (Morphine Inj (Syringe)*) 2 mg IV Q4H PRN PRN Reason: PAIN - MILD Last Admin: 08/26/17 12:48 Dose: 2 mg Ondansetron HCl (Zofran Odt Tab*) 4 mg PO Q6H PRN PRN Reason: NAUSEA Last Admin: 08/26/17 12:48 Dose: 4 mg Ondansetron HCl (Zofran Inj*) 4 mg IV Q4H PRN PRN Reason: NAUSEA Last Admin: 08/26/17 11:13 Dose: 4 mg Pharmacy Consult (Zosyn Per Pharmacy*) 1 note FOLLOW UP .ZOSYN PER PHARMACY INA Polyvinyl Alcohol (Polyvinyl Alcohol 1.4% Opth*) 1 drop BOTH EYES Q2H PRN PRN Reason: DRY EYE Last Admin: 08/26/17 17:42 Dose: 1 drop Tramadol HCl (Ultram*) 50 mg PO Q6H PRN PRN Reason: PAIN Vital Signs 08/25/17 08/25/17 08/25/17 18:14 20:00 20:08 Temperature 98.8 F Pulse Rate 63 Respiratory 20 20 20 Rate Blood Pressure 136/66 (mmHg) O2 Sat by Pulse 98 Oximetry 08/25/17 08/25/17 08/25/17 20:49 21:54 22:08 Temperature 98.9 F Pulse Rate 76 Respiratory 16 20 20 Rate Blood Pressure 113/47 (mmHg) O2 Sat by Pulse 99 Oximetry 08/25/17 08/25/17 08/25/17 22:54 23:46 23:47 Temperature 98.5 F Pulse Rate 45 66 Respiratory 20 16 Rate Blood Pressure 119/54 (mmHg) O2 Sat by Pulse 97 Oximetry 08/26/17 08/26/17 08/26/17 02:30 03:30 03:38 Temperature 98.3 F Pulse Rate 56 Respiratory 20 20 16 Rate Blood Pressure 121/65 (mmHg) O2 Sat by Pulse 97 Oximetry 08/26/17 08/26/17 08/26/17 03:40 07:43 08:00 Temperature 97.8 F Pulse Rate 90 50 Respiratory 16 18 Rate Blood Pressure 134/71 (mmHg) O2 Sat by Pulse 97 Oximetry 08/26/17 08/26/17 08/26/17 08:51 09:51 10:27 Temperature Pulse Rate Respiratory 18 18 20 Rate Blood Pressure (mmHg) O2 Sat by Pulse Oximetry 08/26/17 08/26/17 08/26/17 11:27 11:29 12:48 Temperature 97.4 F Pulse Rate 72 Respiratory 22 20 18 Rate Blood Pressure 142/81 (mmHg) O2 Sat by Pulse 98 Oximetry 08/26/17 13:48 Temperature Pulse Rate Respiratory 18 Rate Blood Pressure (mmHg) O2 Sat by Pulse Oximetry Oxygen Devices in Use Now: None Appearance: alert, sitting up in bed, no distress Eyes: No Scleral Icterus, PERRLA Ears/Nose/Mouth/Throat: NL Teeth, Lips, Gums, Clear Oropharnyx Neck: NL Appearance and Movements; NL JVP, Trachea Midline Respiratory: Symmetrical Chest Expansion and Respiratory Effort, Clear to Auscultation Cardiovascular: NL Sounds; No Murmurs; No JVD, RRR Abdominal: NL Sounds; No Tenderness; No Distention, No Hepatosplenomegaly Lymphatic: No Cervical Adenopathy, No Inguinal Adenopathy Extremities: No Edema, No Clubbing, Cyanosis Skin: - - irregular, jagged wound with minimal surrounding erythema, 2mm deep, some granulation tissue, sensation in tact, distal pulses 2+. Pain out of proportion to wound. Result Diagrams: 08/26/17 04:40 08/26/17 04:40 Additional Lab and Data: Lab Results 08/25/17 08/25/17 08/25/17 Range/Units 15:55 15:55 15:55 WBC 1.6 L (3.5-10.8) 10^3/ul RBC 2.90 L (4.0-5.4) 10^6/ul Hgb 8.6 L (12.0-16.0) g/dl Hct 26 L (35-47) % MCV 88 (80-97) fL MCH 30 (27-31) pg MCHC 34 (31-36) g/dl RDW 16 H (10.5-15) % Plt Count 150 (150-450) 10^3/ul MPV 7 L (7.4-10.4) um3 Neut % (Auto) 64.2 (38-83) % Lymph % (Auto) 20.4 L (25-47) % [place] % (Auto) 13.6 H (1-9) % Eos % (Auto) 0.9 (0-6) % Baso % (Auto) 0.9 (0-2) % Absolute Neuts (auto) 1.0 L (1.5-7.7) 10^3/ul Absolute Lymphs (auto) 0.3 L (1.0-4.8) 10^3/ul Absolute Monos (auto) 0.2 (0-0.8) 10^3/ul Absolute Eos (auto) 0 (0-0.6) 10^3/ul Absolute Basos (auto) 0 (0-0.2) 10^3/ul Absolute Nucleated RBC 0 10^3/ul Nucleated RBC % 0.1 Sodium Pending Potassium Pending Chloride Pending Carbon Dioxide Pending Anion Gap Pending BUN Pending Creatinine Pending Est GFR ( Amer) Pending Est GFR (Non-Af Amer) Pending BUN/Creatinine Ratio Pending Glucose Pending Calcium Pending Magnesium Pending Total Bilirubin Pending AST Pending ALT Pending Alkaline Phosphatase Pending Total Creatine Kinase Pending Troponin I 0.04 H* (<0.04) ng/mL C-Reactive Protein Pending B-Natriuretic Peptide 968 H ( - 100) pg/mL Total Protein Pending Albumin Pending Globulin Pending Albumin/Globulin Ratio Pending TSH Pending Assess/Plan/Problems-Billing Assessment: 1. Sepsis from infected LLE wound Sepsis now resolved, but etiology of wound remains unclear. Skin biopsy in June revealed venous stasis changes, ABIs do not show PAD. Evaluated by Dr. Soto, who agreed that this is not a blood supply issue. Evaluated by Dr. Mclain, who recommended a repeat skin biopsy. I discussed this with Ms. Reid and her daughter, who agree to repeat skin biopsy. Will discuss this with surgery. Continue broad spectrum abx for now. Will follow up blood cultures. Pain is out of proportion to wound appearance, so would like to rule out pyoderma gangrenosum, dm myonecrosis. Will also plan for a CT with contrast , but will wait for recovery of kidney function so we can use IV contrast. 2. Afib with RVR Likely related to sepsis and her metoprolol being on hold. Now rate controlled s/p 1 dose of IV metoprolol and resumption of her home metoprolol dose. resume AC with pradaxa. 3. CAD continue statin, should also be on asa 81mg 4. ABRAM likely related to sepsis, improving with IVF resuscitation. hold off on IV contrast today. 4. Pancytopenia Can likely be attributed to sepsis, but she is also followed by hematology and is being worked up for marrow dysfunction; will touch base with Dr. Cortés.
[2017-08-26] MEDS: Metoprolol Tartrate TAB* 25 MG PO SCH (20:27)
[2017-08-26] MEDS: Gabapentin CAP(*) 100 MG PO SCH (20:28)
[2017-08-26] MEDS: Atorvastatin* 20 MG TAB PO SCH (20:28)
[2017-08-26] MEDS: DABIGATRAN 150 MG PO SCH (21:31)
--- NOTE | 2017-08-26 21:50 | CONS ---
CC: NAVEEN Badillo in [place]; Dr. Mclain * INTERVENTIONAL CARDIOLOGY CONSULT NOTE: DATE OF CONSULT: 08/26/17 PRIMARY CARE PHYSICIAN: NAVEEN Badillo in [place]. HISTORY OF PRESENT ILLNESS: A 77-year-old woman with nonhealing left lateral calf wound since May. I was consulted regarding the possibility of an ischemic component. She developed a wound after a possible bite. This has gradually progressed and worsened, she has a pain out of proportion to the appearance of the wound. Evaluation for an arterial component has been negative including normal ABIs, normal toe brachial index. Because the wound is in the distribution of the left peroneal artery, duplex was obtained today, shows a patent peroneal, essentially ruling out arterial insufficiency. She had previous venous study, which showed incompetence of the greater saphenous, but not particularly of the lesser saphenous, nonetheless the wound is in the distribution of the lesser saphenous. Previous biopsy showed venous insufficiency changes. She has not to date been treated with external compression because of concern of arterial insufficiency, but that is now being started. She was admitted with sepsis, is now on antibiotics. PAST MEDICAL HISTORY: Well detailed in her H and P. PHYSICAL EXAM: Limited to her extremities where she has a palpable femoral and pedal pulses. I did not undress her wound as it is exquisitely tender. Her legs are not particularly edematous or discolored, do not have the typical appearance for chronic venous insufficiency. IMPRESSION AND PLAN: Nonhealing wound, left lower extremity lateral surface in the peroneal distribution. This is not an arterial wound based on a noninvasive studies. Study result suggests a venous insufficiency component and she is going to be treated for venous insufficiency. I have discussed her case with Dr. Gimenez in the Wound Clinic who will follow up after discharge with management of venous insufficiency. Thanks for the consultation. [id number]/[facility] #: [id number] JERRY
[2017-08-27] MEDS: NS 0.9% 1000 ML* 1,000 ML IV SCH ×4 (03:14→18:50)
[2017-08-27] MEDS: ZOSYN 3.375 GM Q8H per EXTENDED INFUSION IVPB SCH ×6 (04:32→21:10)
[2017-08-27] MEDS: Ondansetron INJ* 2 MG/ML VIAL IV PRN ×3 (04:36→20:05)
[2017-08-27] MEDS: Morphine INJ* 2 MG/ML 1 ML SYRINGE (TWO MG - NEW SYRINGE VERSION) IV PRN ×3 (04:37→20:18)
[2017-08-27 05:23] LABS: Hematocrit 29 % (35-47); Hemoglobin 9.4 g/dl (12.0-16.0); Mean Corpuscular HGB Conc 33 g/dl (31-36); Mean Corpuscular Hemoglobin 29 pg (27-31); Mean Corpuscular Volume 89 fL (80-97); Mean Platelet Volume 7 um3 (7.4-10.4); Red Blood Count 3.23 10^6/ul (4.0-5.4); Red Cell Distribution Width 16 % (10.5-15); White Blood Count 4.3 10^3/ul (3.5-10.8)
[2017-08-27 05:35] LABS: Albumin 3.4 g/dL (3.2-5.2); BUN/Creatinine Ratio 9.6 (8-20); Calcium 7.5 mg/dL (8.6-10.3); EGFR African American 99.7 (>60); EGFR Non-African American 77.5 (>60); Globulin 2.9 g/dL (2-4); Magnesium 1.4 mg/dL (1.9-2.7); Phosphorus 1.6 mg/dL (2.5-5.0); Potassium 3.4 mmol/L (3.5-5.0); Total Bilirubin 0.4 mg/dL (0.2-1.0); Total Protein 6.3 g/dL (6.4-8.9)
[2017-08-27] MEDS: Dronedarone TAB* 400 MG PO SCH ×2 (07:36→21:09)
[2017-08-27] MEDS: Aspirin EC Low Dose* 81 MG TAB.EC PO SCH (07:36)
[2017-08-27] MEDS: Metoprolol Tartrate TAB* 25 MG PO SCH ×2 (07:36→21:07)
[2017-08-27] MEDS: Ondansetron ODT TAB* 4 MG PO PRN (07:36)
[2017-08-27] MEDS: DABIGATRAN 150 MG PO SCH ×2 (07:36→21:09)
[2017-08-27] MEDS ORDERED: Cyanocobalamin INJ * 1,000 MCG/ML VIAL 1 ML VIAL IM SCH (11:00)
[2017-08-27] MEDS ORDERED: Simethicone LIQ* 40 MG/0.6 ML UD ORAL SYRINGE PO PRN (11:01)
[2017-08-27] MEDS: Cyanocobalamin INJ * 1,000 MCG/ML VIAL 1 ML VIAL IM SCH (12:14)
[2017-08-27] MEDS: Al Hydrox/Mg Hydrox/Simet LIQ* 30 ML UDC PO PRN (12:14)
[2017-08-27] MEDS ORDERED: Morphine INJ* 4 MG/ML 1 ML CARPUJECT IV ONE (13:03)
--- NOTE | 2017-08-27 13:06 | RAD ---
HISTORY: Small bowel obstruction COMPARISONS: CT dated August 25, 2017 VIEWS: Frontal views of the abdomen. FINDINGS: Evaluation is somewhat limited by overlying monitoring hardware. BOWEL: There is a nonspecific bowel gas pattern, with nondilated small bowel gas noted. CALCULI: There are no abnormal calculi. BONES AND SOFT TISSUES: There is a scoliotic curvature of the spine. Degenerative changes are noted. The patient is status post right hip arthroplasty. OTHER FINDINGS: There is a small left pleural effusion. There is no subphrenic gas. IMPRESSION: LIMITED STUDY. NONSPECIFIC BOWEL GAS PATTERN. SMALL LEFT PLEURAL EFFUSION
[2017-08-27] MEDS ORDERED: CMC:Pantoprazole TAB (NF) 40 MG TAB PO ONE (13:22)
--- NOTE | 2017-08-27 13:37 | CONS ---
CONSULTATION REPORT: DATE OF CONSULT: 08/27/17 REQUESTING PHYSICIAN: Dr. Camarena. CONSULTING SERVICE: Infectious Disease. REASON FOR CONSULT: Left leg ulcer. IMPRESSION: 1. Chronic, [id number] left leg ulcer with underlying fat, there is no cellulitis. She did have significant pain which has improved with elevation of the left and antibiotics. Previously the wound had grown Providencia rettgeri on 08/12/17 which I think was more likely a colonization. Blood cultures here are negative. 2. Sepsis was present on admission, now resolved. 3. Leukopenia, present on admission, I think was due to a recent oral Cipro therapy. That is improving. 4. Anorexia and dehydration, may have been antibiotic related, also seems to be improving. 5. Epigastric pain. CT abdomen and pelvis was unrevealing. RECOMMENDATIONS: Agree with Zosyn and biopsy of the left leg lesion to rule out autoimmune or malignancy. Her leg otherwise is fairly normal looking, so seems a little bit unusual for a venous ulcer though it may be what it is. HISTORY OF PRESENT ILLNESS: This is a 77-year-old woman with a chronic left lateral leg ulcer, developed in April and had been on courses of Keflex and doxycycline and on Cipro. She had wound culture that grew providencia taken by the wound clinic where she was followed for a few weeks. The wound apparently has not been making much progress and she has had significant pain which had limited her overall intake, she felt. It was not worse with weightbearing, seemed worse when it was uncovered and exposed to the air. She did have a skin biopsy by primary doctor initially that showed some venous stasis changes, no malignancy. When seen in my office 2 days ago, she was hypotensive in the 90s with lightheadedness, presyncope. She has been rehydrated, her blood pressure is in the 140s now. The leg pain is better with morphine and with elevation. She has epigastric pain. No bowel movement in 3 days but is passing flatus. She has occasional nausea, no vomiting. PAST MEDICAL HISTORY: 1. Status post right hip arthroplasty. 2. Coronary artery disease. 3. Type 2 diabetes. 4. Hypertension. 5. Hyperlipidemia. 6. Atrial fibrillation, anticoagulated. 7. Gastroesophageal reflux disease. 8. Chronic back pain. 9. Osteoarthritis. MEDICATIONS: 1. Tylenol. 2. Aspirin. 3. Bacitracin. 4. Cyanocobalamin. 5. Pradaxa. 6. Multaq. 7. Gabapentin. 8. Metoprolol. 9. Zosyn 3.375 g every 8 hours by extended infusion. 10. Zofran p.r.n. 11. Tramadol as needed. ALLERGIES: SULFA caused anaphylaxis. OXYCONTIN and PERCOCET caused agitation. HYDROCODONE caused loss of appetite. TRAMADOL caused nausea. FAMILY HISTORY: No recurrent infections or tuberculosis. SOCIAL HISTORY: She is a nonsmoker. She had smoked in the past. She lives with her . REVIEW OF SYSTEMS: A 14-point review of systems was negative except as noted above. PHYSICAL EXAM: Vital Signs: Temperature 37, heart rate of 100, respiratory rate 16, blood pressure 150/70, O2 sat 95% on room air. In general, she is awake, and not in distress. Neurologic: She is oriented x3. Follows all commands. Moves all extremities. HEENT: There is no conjunctival hemorrhage. Oropharynx without lesions. Neck: Supple without nuchal rigidity. Lymph nodes: There is no inguinal, axillary or epitrochlear lymphadenopathy. Heart: Irregularly irregular and tachycardic without murmurs. Lungs: Clear to auscultation bilaterally. Abdomen: Soft, nontender, nondistended. There is no rebound. Bowel sounds are present. Skin: There is no rash or splinter hemorrhages. There is a left lateral below the knee irregular ulceration with some fibrinous slough and no surrounding erythema. There is surrounding tenderness to palpation. There is no crepitus or fluctuance. DIAGNOSTIC STUDIES/LAB DATA: White blood cell count 4.3, hemoglobin 9.4, platelets 168. Creatinine is 0.7. Please see the impressions and recommendation as outlined above, which I discussed with Kavitha Camarena DO. Thank you for asking me to see Ms. Reid in consultation. [id number]/[facility] #: [id number] JERRY
[2017-08-27] MEDS ORDERED: Magnesium Oxide TAB* 400 MG PO ONE (16:50)
[2017-08-27] MEDS: Bacitracin OINTMENT* 1 TUBE TOPICAL SCH (16:53)
[2017-08-27] MEDS ORDERED: Potassium Phosphate IV* 15 MMOLE in NS 0.9% 250 ML* 250 ML IVPB ONE (18:00)
[2017-08-27] MEDS ORDERED: Magnesium Sulfate 1 GM IV* 1 GM/100 ML BAG IV ONE (18:00)
--- NOTE | 2017-08-27 19:10 | PN ---
Subjective Date of Service: 08/27/17 Interval History: Complains of abdominal discomfort today. She has continued to have nausea and vomiting. Her leg feels better today. No fevers, chills, diarrhea, constipation. Her abdominal discomfort is "all over," and she cannot localize it to one location. Family History: Unchanged from Admission Social History: Unchanged from Admission Past Medical History: Unchanged from Admission Objective Active Medications: Acetaminophen (Tylenol Tab*) 975 mg PO Q6H PRN PRN Reason: FEVER/PAIN Last Admin: 08/26/17 11:18 Dose: 975 mg Al Hydrox/Mg Hydrox/Simethicone (Maalox Plus*) 30 ml PO Q2H PRN PRN Reason: indigestion Last Admin: 08/27/17 12:14 Dose: 30 ml Aspirin (Aspirin Ec Low Dose*) 81 mg PO DAILY [facility] Last Admin: 08/27/17 07:36 Dose: 81 mg Atorvastatin Calcium (Lipitor*) 20 mg PO BEDTIME [facility] Last Admin: 08/26/17 20:28 Dose: 20 mg Bacitracin (Bacitracin Ointment*) 1 applic TOPICAL DAILY [facility] Last Admin: 08/27/17 16:53 Dose: Not Given Cyanocobalamin (Vitamin B12 Inj *) 1,000 mcg IM We@1200 [facility] Last Admin: 08/27/17 12:14 Dose: 1,000 mcg Dabigatran (Pradaxa Cap(Nf)) 150 mg PO BID [facility] Last Admin: 08/27/17 07:36 Dose: 150 mg Dronedarone (Multaq Tab*) 400 mg PO BID [facility] Last Admin: 08/27/17 07:36 Dose: 400 mg Gabapentin (Neurontin Cap(*)) 100 mg PO BEDTIME [facility] Last Admin: 08/26/17 20:28 Dose: 100 mg Piperacillin Sod/Tazobactam (Sod 3.375 gm/ Sodium Chloride) 100 mls @ 25 mls/ hr IVPB Q8H [facility] Last Admin: 08/27/17 12:14 Dose: 25 mls/hr Sodium Chloride (Ns 0.9% 1000 Ml*) 1,000 mls @ 200 mls/hr IV PER RATE [facility] Last Admin: 08/27/17 18:50 Dose: 200 mls/hr Potassium Phosphate 15 mmole/ (Sodium Chloride) 255 mls @ 42 mls/hr IVPB ONCE ONE Stop: 08/28/17 00:04 Last Admin: 08/27/17 18:50 Dose: 42 mls/hr Metoprolol Tartrate (Lopressor Tab*) 12.5 mg PO Q12HR INA Last Admin: 08/27/17 07:36 Dose: 12.5 mg Metoprolol Tartrate (Lopressor Iv*) 5 mg IV Q6H PRN PRN Reason: HEART RATE/PULSE > 120 MM[facility] Last Admin: 08/26/17 20:29 Dose: 5 mg Morphine Sulfate (Morphine Inj (Syringe)*) 2 mg IV Q4H PRN PRN Reason: PAIN - MILD Last Admin: 08/27/17 10:30 Dose: 2 mg Ondansetron HCl (Zofran Odt Tab*) 4 mg PO Q6H PRN PRN Reason: NAUSEA Last Admin: 08/27/17 07:36 Dose: 4 mg Ondansetron HCl (Zofran Inj*) 4 mg IV Q4H PRN PRN Reason: NAUSEA Last Admin: 08/27/17 16:57 Dose: 4 mg Pharmacy Consult (Zosyn Per Pharmacy*) 1 note FOLLOW UP .ZOSYN PER PHARMACY INA Polyvinyl Alcohol (Polyvinyl Alcohol 1.4% Opth*) 1 drop BOTH EYES Q2H PRN PRN Reason: DRY EYE Last Admin: 08/26/17 17:42 Dose: 1 drop Simethicone (Mylicon Liq*) 20 mg PO BID PRN PRN Reason: INDIGESTION Tramadol HCl (Ultram*) 50 mg PO Q6H PRN PRN Reason: PAIN Vital Signs 08/26/17 08/26/17 08/26/17 19:18 19:31 20:00 Temperature 98.3 F Pulse Rate 47 Respiratory 20 20 18 Rate Blood Pressure 152/83 (mmHg) O2 Sat by Pulse 98 Oximetry 08/26/17 08/26/17 08/26/17 20:18 20:28 22:28 Temperature Pulse Rate Respiratory 18 18 18 Rate Blood Pressure (mmHg) O2 Sat by Pulse Oximetry 08/26/17 08/27/17 08/27/17 23:27 03:34 04:37 Temperature 98.4 F 97.8 F Pulse Rate 134 101 Respiratory 20 20 20 Rate Blood Pressure 150/93 145/85 (mmHg) O2 Sat by Pulse 97 96 Oximetry 08/27/17 08/27/17 08/27/17 05:37 07:32 07:54 Temperature 98.2 F Pulse Rate Respiratory 17 16 16 Rate Blood Pressure 148/77 (mmHg) O2 Sat by Pulse 95 Oximetry 08/27/17 08/27/17 08/27/17 10:30 11:30 11:52 Temperature 99.4 F Pulse Rate 79 Respiratory 20 19 16 Rate Blood Pressure 149/78 (mmHg) O2 Sat by Pulse 94 Oximetry 08/27/17 08/27/17 08/27/17 15:20 15:47 16:47 Temperature 98.9 F Pulse Rate 30 Respiratory 18 18 22 Rate Blood Pressure 152/84 (mmHg) O2 Sat by Pulse 94 Oximetry Oxygen Devices in Use Now: None Appearance: alert, uncomfortable Eyes: No Scleral Icterus Ears/Nose/Mouth/Throat: NL Teeth, Lips, Gums, Clear Oropharnyx Neck: NL Appearance and Movements; NL JVP Respiratory: Symmetrical Chest Expansion and Respiratory Effort, Clear to Auscultation Cardiovascular: NL Sounds; No Murmurs; No JVD, - - irregular rhythm Abdominal: NL Sounds; No Tenderness; No Distention, No Hepatosplenomegaly Lymphatic: No Cervical Adenopathy Extremities: No Edema Skin: - - LLE dressed Neurological: Alert and Oriented x 3 Result Diagrams: 08/27/17 05:03 08/27/17 05:03 Additional Lab and Data: Lab Results 08/25/17 08/25/17 08/25/17 Range/Units 15:55 15:55 15:55 WBC 1.6 L (3.5-10.8) 10^3/ul RBC 2.90 L (4.0-5.4) 10^6/ul Hgb 8.6 L (12.0-16.0) g/dl Hct 26 L (35-47) % MCV 88 (80-97) fL MCH 30 (27-31) pg MCHC 34 (31-36) g/dl RDW 16 H (10.5-15) % Plt Count 150 (150-450) 10^3/ul MPV 7 L (7.4-10.4) um3 Neut % (Auto) 64.2 (38-83) % Lymph % (Auto) 20.4 L (25-47) % Pickett % (Auto) 13.6 H (1-9) % Eos % (Auto) 0.9 (0-6) % Baso % (Auto) 0.9 (0-2) % Absolute Neuts (auto) 1.0 L (1.5-7.7) 10^3/ul Absolute Lymphs (auto) 0.3 L (1.0-4.8) 10^3/ul Absolute Monos (auto) 0.2 (0-0.8) 10^3/ul Absolute Eos (auto) 0 (0-0.6) 10^3/ul Absolute Basos (auto) 0 (0-0.2) 10^3/ul Absolute Nucleated RBC 0 10^3/ul Nucleated RBC % 0.1 Sodium Pending Potassium Pending Chloride Pending Carbon Dioxide Pending Anion Gap Pending BUN Pending Creatinine Pending Est GFR ( Amer) Pending Est GFR (Non-Af Amer) Pending BUN/Creatinine Ratio Pending Glucose Pending Calcium Pending Magnesium Pending Total Bilirubin Pending AST Pending ALT Pending Alkaline Phosphatase Pending Total Creatine Kinase Pending Troponin I 0.04 H* (<0.04) ng/mL C-Reactive Protein Pending B-Natriuretic Peptide 968 H ( - 100) pg/mL Total Protein Pending Albumin Pending Globulin Pending Albumin/Globulin Ratio Pending TSH Pending Assess/Plan/Problems-Billing Assessment: 1. Sepsis from infected LLE wound Sepsis now resolved, but etiology of wound remains unclear. Skin biopsy in June revealed venous stasis changes, ABIs do not show PAD. Evaluated by Dr. Soto, who agreed that this is not a blood supply issue. Evaluated by Dr. Mclain, who recommended a repeat skin biopsy. I discussed this with general surgery today. Continue broad spectrum abx for now. Blood cultures remain negative. Pain is out of proportion to wound appearance, so would like to rule out pyoderma gangrenosum, dm myonecrosis, etc. She may benefit from an SNRI for pain control, but would like her GI symptoms to resolve before introducing an snri. 2. Abdominal discomfort KUB ruled out obstruction, and a CT on admission was negative for acute process. Treat symptomatically with protonix, maalox, and check lipase and LFTs. 3. Afib with RVR Resolved today; Likely related to sepsis and her metoprolol being on hold. Now rate controlled s/p 1 dose of IV metoprolol and resumption of her home metoprolol dose. resume AC with pradaxa. 4. CAD continue statin, should also be on asa 81mg 4. Pancytopenia Can likely be attributed to sepsis, but she is also followed by hematology and is being worked up for marrow dysfunction; case discussed with Dr. Cortés today, who recommended checking quantitative immunoglobulins to rule out this contributing to poor wound healing.
[2017-08-27] MEDS: Gabapentin CAP(*) 100 MG PO SCH (21:07)
[2017-08-27] MEDS: Atorvastatin* 20 MG TAB PO SCH (21:08)
[2017-08-27] MEDS: Metoprolol Tartrate IV* 1 MG/ML 5 ML VIAL IV PRN (21:56)
[2017-08-27] MEDS ORDERED: NS 0.9% 1000 ML* 1,000 ML IV SCH (22:28)
[2017-08-27] MEDS ORDERED: Potassium Chlor TAB* 20 MEQ TAB.ER PO ONE (23:18)
[2017-08-28] MEDS: ZOSYN 3.375 GM Q8H per EXTENDED INFUSION IVPB SCH ×4 (04:23→12:36)
--- NOTE | 2017-08-28 04:23 | CONS ---
CC: Navya Calderon NP; Dr. Jenny Hall; Dr. Jamir Mclain; [facility]; Dr. Wing; [facility] * SURGICAL WOUND CONSULTATION REPORT: DATE OF CONSULT: 08/27/17 LOCATION: The patient was seen in room 448. HISTORY OF PRESENT ILLNESS: I was contacted by the hospitalist service to evaluate Ms. Reid for a punch biopsy of a chronic ulcer on her left lower leg. The patient started complaining of a wound at the left lower leg in approximately April of this year, this has slowly worsened. The patient did undergo a treatment with bacitracin and ultimately a punch biopsy with her primary care doctor on 07/04/17. Pathology was consistent with chronic stasis dermatitis with ulceration. She was then sent to the Wound Center, where she was initially seen on 07/22/17. These reports were not read, but I did enquire the patient about her treatment there. She had a couple of visits and did undergo debridement with Dr. Gimenez. Her workup during this included a venous Doppler study on 08/01/17, which showed no thrombosis or reflux. She had an arterial study on 08/04/17 that showed no compelling evidence for hemodynamic inflow disease with an NATHAN of 1.23 on the left. This was repeated 2 weeks later , where again her left-sided ABIs were elevated. There was a calcified atherosclerosis and there was a suggestion of arterial flow limitation, however , on the right. The patient has been followed by Dr. Mclain and receiving antibiotics. Most recent visit to his office, she was sent to the hospital for admission. This was not her first time directed over to the hospital. She had been directed for the emergency room prior to that. There is a wound culture on 08/13/17 that was positive for Providencia rettgeri that was resistant to multiple medications. The patient was admitted and started on Zosyn and vancomycin. The vancomycin has since been removed from her MAR. Hospitalist in review of her situation was concerned that possibly the biopsy could be repeated to rule out a skin cancer at this site. Currently, the patient is comfortable. She states that she has pain when the dressing gets removed. She has no problem lying on her back as long as the wound is dressed. She has been having difficulty walking, walking with walker a limp. She feels overall rundown. PAST MEDICAL HISTORY: Coronary artery disease; type 2 diabetes; hypertension; hypercholesterolemia; atrial fibrillation, on Pradaxa; GERD; chronic back pain; and hip osteoarthritis. PAST SURGICAL HISTORY: No lower extremity surgeries. She does have a right hip arthroplasty in 2015. MEDICATIONS: Home medications were reviewed. ALLERGIES: Allergy list reviewed. REVIEW OF SYSTEMS: Fevers and chills and question of rigors. The patient has felt fatigued and a short of breath at times. She does seem to have possible claudication-type symptoms even prior to the onset of this. PHYSICAL EXAM: The patient is afebrile, 99.4; heart rate in the 110s; blood pressure normal. Alert and oriented x3, no apparent distress. Focused examination of the lower extremities reveals an irregular shaped full-thickness ulceration that shows necrotic tissue at posterior left calf. Periwound skin is erythematous and tender. There is some edema. There is no drainage, no fluctuance, no crepitance. No palpable pulses. Foot is intact without lesion. The patient has 4/5 range of motion. DIAGNOSTIC STUDIES/LAB DATA: Labs reviewed and yesterday did show an ANC of 500 , currently 2700. White count is 4.3. She is anemic and the other labs are reviewed. Imaging was reviewed and described as above. Additional consultation by Interventional Cardiology also is not felt that this is an arterial insufficiency ulceration. IMPRESSION: Longstanding ulceration of unclear etiology. Arterial disease is ruled out. Venous stasis disease is possible. Dermatitis based on recent biopsy. I do not disagree with additional biopsy given that the hospitalist service is enquiring and we will follow this up. I recommended excisional debridement since the patient is unable to tolerate Santyl dressing. I feel that Santyl is a good chemical debrider and if the patient cannot tolerate this , then excisional debridement may be a good adjunct right now, especially since we will be obtaining a biopsy. I outlined the details of the procedure of excisional debridement and biopsy and the patient agreed to proceed. I spoke of the possible complications, which included but not limited to bleeding, persistent disease, possibility of malignant diagnosis, and need for additional surgeries. The patient understood and signed consent. After this consent was obtained, the patient was placed in the prone position. The wound was prepped with Betadine and injection of lidocaine along the parameter of this complex ulcer was performed. We could not inject too much lidocaine without significant pain, this was 1% and the decision was made to perform the biopsy and debride section of this. This was performed with a 15- blade scalpel, lifting up necrotic subcutaneous tissue and I did not appreciate any fat layers that were within this ulceration. Biopsy was taken of the skin and we will take this down to pathology. Bleeding was controlled with pressure and a Xeroform dressing was applied. The wound is quite tender, but again with the previous studies and consultation by Interventional Cardiology, I do believe that we can move towards a Unna boot or compression dressing at this point wound care with possibly additional debridement in the Wound Center and even skin substitute can be considered. As far as dressing is difficult since all the dressings have been painful for her, we can consider a collagen dressing, hopefully just the Unna boot alone might be enough since this is medicated. We will not continue to see the patient while she is hospitalized, but we will see her in the Wound Center. Plan will be for followup pathology, Unna boot placement, and follow up in the Wound Center. TIME SPENT: Total over 55 minutes were spent with the patient one-on-one including during the procedure and going over the entire history and an additional 15 minutes away from the patient. [id number]/[facility] #: [id number] JERRY
[2017-08-28 05:21] LABS: Hematocrit 26 % (35-47); Hemoglobin 8.7 g/dl (12.0-16.0); Mean Corpuscular HGB Conc 33 g/dl (31-36); Mean Corpuscular Hemoglobin 29 pg (27-31); Mean Corpuscular Volume 87 fL (80-97); Mean Platelet Volume 7 um3 (7.4-10.4); Red Blood Count 3.01 10^6/ul (4.0-5.4); Red Cell Distribution Width 17 % (10.5-15); White Blood Count 6.4 10^3/ul (3.5-10.8)
[2017-08-28 06:17] LABS: BUN/Creatinine Ratio 12.3 (8-20); EGFR African American 99.7 (>60); EGFR Non-African American 77.5 (>60); Globulin 2.7 g/dL (2-4); Magnesium 1.4 mg/dL (1.9-2.7); Phosphorus 2.2 mg/dL (2.5-5.0); Potassium 4.1 mmol/L (3.5-5.0); Total Bilirubin 0.4 mg/dL (0.2-1.0); Total Protein 5.7 g/dL (6.4-8.9)
--- NOTE | 2017-08-28 07:16 | RAD ---
INDICATION: Shortness of breath. COMPARISON: Comparison is made with a prior chest x-ray study from August 25, 2017. TECHNIQUE: A portable view of the chest was obtained. FINDINGS: The heart is moderately enlarged. There is mild diffuse prominence of the interstitial markings which have increased from the prior exam. There are bibasilar infiltrates and small bilateral pleural effusions. IMPRESSION: FINDINGS MOST CONSISTENT WITH CONGESTIVE HEART FAILURE AND/OR PNEUMONIA.
[2017-08-28] MEDS ORDERED: Magnesium Sulfate 2 GM IV* 2 GM/50 ML BAG IVPB ONE (08:20)
[2017-08-28] MEDS: Metoprolol Tartrate TAB* 25 MG PO SCH ×2 (08:41→20:46)
[2017-08-28] MEDS: Aspirin EC Low Dose* 81 MG TAB.EC PO SCH (08:42)
[2017-08-28] MEDS: DABIGATRAN 150 MG PO SCH ×2 (08:42→20:47)
[2017-08-28] MEDS: Dronedarone TAB* 400 MG PO SCH ×2 (08:42→20:48)
[2017-08-28] MEDS: Bacitracin OINTMENT* 1 TUBE TOPICAL SCH (08:47)
[2017-08-28] MEDS: Metoprolol Tartrate IV* 1 MG/ML 5 ML VIAL IV PRN (09:04)
[2017-08-28] MEDS ORDERED: Vancomycin Trough Check NOTE FOLLOW UP ONE (09:30)
[2017-08-28] MEDS: Morphine INJ* 2 MG/ML 1 ML SYRINGE (TWO MG - NEW SYRINGE VERSION) IV PRN (09:39)
[2017-08-28] MEDS ORDERED: Morphine INJ* 2 MG/ML 1 ML SYRINGE (TWO MG - NEW SYRINGE VERSION) IV ONE (10:23)
[2017-08-28] MEDS ORDERED: Acetaminophen TAB* 325 MG PO SCH (14:00)
[2017-08-28] MEDS: Acetaminophen TAB* 325 MG PO SCH ×2 (14:40→20:47)
--- NOTE | 2017-08-28 17:14 | PN ---
Subjective Date of Service: 08/28/17 Interval History: Unna boot was attempted this morning, but could not be applied due to severe pain. Ms. Reid continued to be in 10/10 pain for hours following this attempt. She continues to complain of nausea and vomiting, but abdominal pain has resolved. She complains of dyspnea and palpitations on exertion, and she did require a dose of IV metoprolol this morning. Family History: Unchanged from Admission Social History: Unchanged from Admission Past Medical History: Unchanged from Admission Objective Active Medications: Acetaminophen (Tylenol Tab*) 975 mg PO Q6H [facility] Last Admin: 08/28/17 14:40 Dose: 975 mg Al Hydrox/Mg Hydrox/Simethicone (Maalox Plus*) 30 ml PO Q2H PRN PRN Reason: indigestion Last Admin: 08/27/17 12:14 Dose: 30 ml Amoxicillin/Clavulanate Potassium (Augmentin Tab*) 875 mg PO BID [facility] Aspirin (Aspirin Ec Low Dose*) 81 mg PO DAILY [facility] Last Admin: 08/28/17 08:42 Dose: 81 mg Atorvastatin Calcium (Lipitor*) 20 mg PO BEDTIME [facility] Last Admin: 08/27/17 21:08 Dose: 20 mg Bacitracin (Bacitracin Ointment*) 1 applic TOPICAL DAILY [facility] Last Admin: 08/28/17 08:47 Dose: Not Given Cyanocobalamin (Vitamin B12 Inj *) 1,000 mcg IM We@1200 [facility] Last Admin: 08/27/17 12:14 Dose: 1,000 mcg Dabigatran (Pradaxa Cap(Nf)) 150 mg PO BID [facility] Last Admin: 08/28/17 08:42 Dose: 150 mg Dronedarone (Multaq Tab*) 400 mg PO BID [facility] Last Admin: 08/28/17 08:42 Dose: 400 mg Duloxetine HCl (Cymbalta Cap*) 20 mg PO DAILY [facility] Furosemide (Lasix Tab*) 20 mg PO DAILY [facility] Metoprolol Tartrate (Lopressor Iv*) 5 mg IV Q6H PRN PRN Reason: HEART RATE/PULSE > 120 [facility] Last Admin: 08/28/17 09:04 Dose: 5 mg Metoprolol Tartrate (Lopressor Tab*) 25 mg PO Q12HR [facility] Morphine Sulfate (Morphine Inj (Syringe)*) 2 mg IV Q4H PRN PRN Reason: PAIN - MILD Last Admin: 08/28/17 09:39 Dose: 2 mg Morphine Sulfate (Ms Contin(*)) 15 mg PO Q12H [facility] Ondansetron HCl (Zofran Odt Tab*) 4 mg PO Q6H PRN PRN Reason: NAUSEA Last Admin: 08/27/17 07:36 Dose: 4 mg Ondansetron HCl (Zofran Inj*) 4 mg IV Q4H PRN PRN Reason: NAUSEA Last Admin: 08/27/17 20:05 Dose: 4 mg Polyvinyl Alcohol (Polyvinyl Alcohol 1.4% Opth*) 1 drop BOTH EYES Q2H PRN PRN Reason: DRY EYE Last Admin: 08/26/17 17:42 Dose: 1 drop Simethicone (Mylicon Liq*) 20 mg PO BID PRN PRN Reason: INDIGESTION Vital Signs 08/27/17 08/27/17 08/27/17 19:15 20:18 20:30 Temperature 97.9 F Pulse Rate 160 Respiratory 28 26 26 Rate Blood Pressure 161/88 (mmHg) O2 Sat by Pulse 94 Oximetry 08/27/17 08/27/17 08/27/17 20:35 21:07 21:18 Temperature 98.5 F Pulse Rate 86 Respiratory 24 24 20 Rate Blood Pressure 163/82 (mmHg) O2 Sat by Pulse 97 Oximetry 08/27/17 08/28/17 08/28/17 23:58 03:49 03:50 Temperature 98.1 F 97.4 F Pulse Rate 32 91 99 Respiratory 28 24 Rate Blood Pressure 150/85 145/64 (mmHg) O2 Sat by Pulse 98 100 100 Oximetry 08/28/17 08/28/17 08/28/17 07:50 07:55 09:39 Temperature 99.0 F Pulse Rate 63 Respiratory 22 18 22 Rate Blood Pressure 151/81 (mmHg) O2 Sat by Pulse 94 Oximetry 08/28/17 08/28/17 08/28/17 09:45 10:29 10:39 Temperature Pulse Rate Respiratory 22 28 28 Rate Blood Pressure (mmHg) O2 Sat by Pulse Oximetry 08/28/17 08/28/17 11:12 11:29 Temperature 98.1 F Pulse Rate 61 Respiratory 20 22 Rate Blood Pressure 153/86 (mmHg) O2 Sat by Pulse 97 Oximetry Oxygen Devices in Use Now: None Appearance: alert, uncomfortable Eyes: No Scleral Icterus, PERRLA Ears/Nose/Mouth/Throat: NL Teeth, Lips, Gums, Clear Oropharnyx Neck: - - jvp ~10cm Respiratory: Symmetrical Chest Expansion and Respiratory Effort, - - decreased breath sounds both bases Cardiovascular: - - irregular rhythm Abdominal: NL Sounds; No Tenderness; No Distention, No Hepatosplenomegaly Lymphatic: No Cervical Adenopathy Extremities: No Edema, - - she cannot tolerate dressing change Neurological: Alert and Oriented x 3 Result Diagrams: 08/28/17 05:08 08/28/17 05:08 Additional Lab and Data: Lab Results 08/25/17 08/25/17 08/25/17 Range/Units 15:55 15:55 15:55 WBC 1.6 L (3.5-10.8) 10^3/ul RBC 2.90 L (4.0-5.4) 10^6/ul Hgb 8.6 L (12.0-16.0) g/dl Hct 26 L (35-47) % MCV 88 (80-97) fL MCH 30 (27-31) pg MCHC 34 (31-36) g/dl RDW 16 H (10.5-15) % Plt Count 150 (150-450) 10^3/ul MPV 7 L (7.4-10.4) um3 Neut % (Auto) 64.2 (38-83) % Lymph % (Auto) 20.4 L (25-47) % [place] % (Auto) 13.6 H (1-9) % Eos % (Auto) 0.9 (0-6) % Baso % (Auto) 0.9 (0-2) % Absolute Neuts (auto) 1.0 L (1.5-7.7) 10^3/ul Absolute Lymphs (auto) 0.3 L (1.0-4.8) 10^3/ul Absolute Monos (auto) 0.2 (0-0.8) 10^3/ul Absolute Eos (auto) 0 (0-0.6) 10^3/ul Absolute Basos (auto) 0 (0-0.2) 10^3/ul Absolute Nucleated RBC 0 10^3/ul Nucleated RBC % 0.1 Sodium Pending Potassium Pending Chloride Pending Carbon Dioxide Pending Anion Gap Pending BUN Pending Creatinine Pending Est GFR ( Amer) Pending Est GFR (Non-Af Amer) Pending BUN/Creatinine Ratio Pending Glucose Pending Calcium Pending Magnesium Pending Total Bilirubin Pending AST Pending ALT Pending Alkaline Phosphatase Pending Total Creatine Kinase Pending Troponin I 0.04 H* (<0.04) ng/mL C-Reactive Protein Pending B-Natriuretic Peptide 968 H ( - 100) pg/mL Total Protein Pending Albumin Pending Globulin Pending Albumin/Globulin Ratio Pending TSH Pending Assess/Plan/Problems-Billing Assessment: 1. Sepsis from infected LLE wound Sepsis now resolved, but etiology of wound remains unclear. Skin biopsy in June revealed venous stasis changes, ABIs do not show PAD. Evaluated by Dr. Soto, who agreed that this is not a blood supply issue. A repeat skin biopsy and debridement was done yesterday by Dr. Braga. Results of skin biopsy are pending. De-escalate antibiotics to augmentin today. Blood cultures remain negative. Pain is out of proportion to wound appearance, so would like to rule out pyoderma gangrenosum, dm myonecrosis, etc. She may benefit from an SNRI for pain control, will start duloxetine tomorrow. Unfortunately she did not tolerate the Unna boot attempt this morning; appreciate surgery/wound input about alternative therapies. 2. Abdominal discomfort KUB ruled out obstruction, and a CT on admission was negative for acute process , LFTs, lipase, and lactate were all normal this morning. I'm concerned that the narcotics are contributing to her nausea. Would like to discontinue tramadol, she is unwilling to stop morphine. Will plan to start long-acting po morphine tonight in an attempt to discontinue IV morphine. Also stop IV antibiotics and transition to augmentin in case those are contributing to gi upset. Treat symptomatically with protonix, maalox. 3. Afib with RVR Upon closer medication review, her metoprolol was recently reduced from 25mg bid to 12.5mg bid. She is poorly controlled on this regimen, especially in the setting of pain and infection; however she has still had periods of RVR even outside of pain and with the infection resolved, so I will increase back to 25mg bid. Continue AC with pradaxa. 4. CAD continue statin, should also be on asa 81mg 4. Pancytopenia Can likely be attributed to sepsis, but she is also followed by hematology and is being worked up for marrow dysfunction; case discussed with Dr. Cortés yesterday, who recommended checking quantitative immunoglobulins to rule out this contributing to poor wound healing.
[2017-08-28] MEDS ORDERED: Furosemide TAB* 20 MG PO ONE (17:30)
[2017-08-28] MEDS: Atorvastatin* 20 MG TAB PO SCH (20:46)
[2017-08-28] MEDS: Morphine TAB Extended Release (*) 15 MG TAB.ER PO SCH (20:46)
[2017-08-28] MEDS: Amoxicillin/Clavulanate TAB* 875 MG PO SCH (20:48)
[2017-08-29] MEDS: Acetaminophen TAB* 325 MG PO SCH ×4 (03:01→21:26)
[2017-08-29 06:03] LABS: Hematocrit 24 % (35-47); Hemoglobin 8.2 g/dl (12.0-16.0); Mean Corpuscular HGB Conc 34 g/dl (31-36); Mean Corpuscular Hemoglobin 30 pg (27-31); Mean Corpuscular Volume 88 fL (80-97); Mean Platelet Volume 8 um3 (7.4-10.4); Red Blood Count 2.78 10^6/ul (4.0-5.4); Red Cell Distribution Width 17 % (10.5-15)
[2017-08-29 06:14] LABS: BUN/Creatinine Ratio 14.6 (8-20); Calcium 7.5 mg/dL (8.6-10.3); EGFR African American 79.3 (>60); EGFR Non-African American 61.7 (>60); Phosphorus 1.9 mg/dL (2.5-5.0); Potassium 3.8 mmol/L (3.5-5.0)
[2017-08-29] MEDS: Morphine TAB Extended Release (*) 15 MG TAB.ER PO SCH ×2 (08:35→21:26)
[2017-08-29] MEDS: Dronedarone TAB* 400 MG PO SCH ×2 (08:36→21:26)
[2017-08-29] MEDS: Amoxicillin/Clavulanate TAB* 875 MG PO SCH (08:37)
[2017-08-29] MEDS: Metoprolol Tartrate TAB* 25 MG PO SCH ×2 (08:37→21:26)
[2017-08-29] MEDS: Aspirin EC Low Dose* 81 MG TAB.EC PO SCH (08:38)
[2017-08-29] MEDS: Furosemide TAB* 20 MG PO SCH (08:38)
[2017-08-29] MEDS: DABIGATRAN 150 MG PO SCH ×2 (08:38→21:27)
[2017-08-29] MEDS: DULoxetine DR CAP* 20 MG CAP.DR PO SCH (08:38)
[2017-08-29] MEDS: Bacitracin OINTMENT* 1 TUBE TOPICAL SCH (10:24)
[2017-08-29 14:44] LABS: Immunoglobulin A 81 mg/dL (61 - 356); Immunoglobulin G 742 mg/dL (767 - 1590); Immunoglobulin M 94 mg/dL (37 - 286)
--- NOTE | 2017-08-29 16:23 | PN ---
Subjective Date of Service: 08/29/17 Interval History: No overnight events. Still feels palpitations and shortness of breath when she walks. Worked with PT this afternoon and felt exhausted afterwards. Pain is controlled; she got morphine sr last night and hasn't required IV morphine all day today. Family History: Unchanged from Admission Social History: Unchanged from Admission Past Medical History: Unchanged from Admission Objective Active Medications: Acetaminophen (Tylenol Tab*) 975 mg PO Q6H [facility] Last Admin: 08/29/17 14:02 Dose: 975 mg Al Hydrox/Mg Hydrox/Simethicone (Maalox Plus*) 30 ml PO Q2H PRN PRN Reason: indigestion Last Admin: 08/27/17 12:14 Dose: 30 ml Aspirin (Aspirin Ec Low Dose*) 81 mg PO DAILY [facility] Last Admin: 08/29/17 08:38 Dose: 81 mg Atorvastatin Calcium (Lipitor*) 20 mg PO BEDTIME [facility] Last Admin: 08/28/17 20:46 Dose: 20 mg Bacitracin (Bacitracin Ointment*) 1 applic TOPICAL DAILY [facility] Last Admin: 08/29/17 10:24 Dose: Not Given Cyanocobalamin (Vitamin B12 Inj *) 1,000 mcg IM We@1200 [facility] Last Admin: 08/27/17 12:14 Dose: 1,000 mcg Dabigatran (Pradaxa Cap(Nf)) 150 mg PO BID [facility] Last Admin: 08/29/17 08:38 Dose: 150 mg Dronedarone (Multaq Tab*) 400 mg PO BID [facility] Last Admin: 08/29/17 08:36 Dose: 400 mg Duloxetine HCl (Cymbalta Cap*) 20 mg PO DAILY [facility] Last Admin: 08/29/17 08:38 Dose: 20 mg Furosemide (Lasix Tab*) 20 mg PO DAILY [facility] Last Admin: 08/29/17 08:38 Dose: 20 mg Metoprolol Tartrate (Lopressor Iv*) 5 mg IV Q6H PRN PRN Reason: HEART RATE/PULSE > 120 [facility] Last Admin: 08/28/17 09:04 Dose: 5 mg Metoprolol Tartrate (Lopressor Tab*) 25 mg PO Q12HR [facility] Last Admin: 08/29/17 08:37 Dose: 25 mg Morphine Sulfate (Morphine Inj (Syringe)*) 2 mg IV Q4H PRN PRN Reason: PAIN - MILD Last Admin: 08/28/17 09:39 Dose: 2 mg Morphine Sulfate (Ms Contin(*)) 15 mg PO Q12H [facility] Last Admin: 08/29/17 08:35 Dose: 15 mg Ondansetron HCl (Zofran Odt Tab*) 4 mg PO Q6H PRN PRN Reason: NAUSEA Last Admin: 08/27/17 07:36 Dose: 4 mg Ondansetron HCl (Zofran Inj*) 4 mg IV Q4H PRN PRN Reason: NAUSEA Last Admin: 08/27/17 20:05 Dose: 4 mg Polyvinyl Alcohol (Polyvinyl Alcohol 1.4% Opth*) 1 drop BOTH EYES Q2H PRN PRN Reason: DRY EYE Last Admin: 08/26/17 17:42 Dose: 1 drop Simethicone (Mylicon Liq*) 20 mg PO BID PRN PRN Reason: INDIGESTION Vital Signs 08/28/17 08/28/17 08/28/17 19:48 20:45 20:46 Temperature 98.4 F Pulse Rate 120 Respiratory 20 20 20 Rate Blood Pressure 142/88 (mmHg) O2 Sat by Pulse 99 Oximetry 08/28/17 08/28/17 08/29/17 22:46 23:35 03:11 Temperature 97.2 F 98.5 F Pulse Rate 104 98 Respiratory 18 16 16 Rate Blood Pressure 145/96 129/83 (mmHg) O2 Sat by Pulse 96 100 Oximetry 08/29/17 08/29/17 08/29/17 07:14 08:00 08:35 Temperature 97.4 F Pulse Rate 55 Respiratory 20 20 20 Rate Blood Pressure 139/78 (mmHg) O2 Sat by Pulse 100 Oximetry 08/29/17 08/29/17 08/29/17 10:35 11:01 11:13 Temperature 97.4 F 97.4 F Pulse Rate 82 82 Respiratory 18 20 20 Rate Blood Pressure 130/57 130/57 (mmHg) O2 Sat by Pulse 100 100 Oximetry Oxygen Devices in Use Now: None Appearance: alert, no distress Eyes: No Scleral Icterus, PERRLA Ears/Nose/Mouth/Throat: NL Teeth, Lips, Gums, Clear Oropharnyx Neck: NL Appearance and Movements; NL JVP, Trachea Midline, - - JVP ~12cm Respiratory: Symmetrical Chest Expansion and Respiratory Effort, - - crackles b/ l bases Cardiovascular: - - irregular rhythm Abdominal: NL Sounds; No Tenderness; No Distention, No Hepatosplenomegaly Lymphatic: No Cervical Adenopathy, No Axillary Adenopathy Extremities: No Edema Skin: - - LLE dressed Neurological: Alert and Oriented x 3 Result Diagrams: 08/29/17 05:13 08/29/17 05:13 Additional Lab and Data: Lab Results 08/25/17 08/25/17 08/25/17 Range/Units 15:55 15:55 15:55 WBC 1.6 L (3.5-10.8) 10^3/ul RBC 2.90 L (4.0-5.4) 10^6/ul Hgb 8.6 L (12.0-16.0) g/dl Hct 26 L (35-47) % MCV 88 (80-97) fL MCH 30 (27-31) pg MCHC 34 (31-36) g/dl RDW 16 H (10.5-15) % Plt Count 150 (150-450) 10^3/ul MPV 7 L (7.4-10.4) um3 Neut % (Auto) 64.2 (38-83) % Lymph % (Auto) 20.4 L (25-47) % [place] % (Auto) 13.6 H (1-9) % Eos % (Auto) 0.9 (0-6) % Baso % (Auto) 0.9 (0-2) % Absolute Neuts (auto) 1.0 L (1.5-7.7) 10^3/ul Absolute Lymphs (auto) 0.3 L (1.0-4.8) 10^3/ul Absolute Monos (auto) 0.2 (0-0.8) 10^3/ul Absolute Eos (auto) 0 (0-0.6) 10^3/ul Absolute Basos (auto) 0 (0-0.2) 10^3/ul Absolute Nucleated RBC 0 10^3/ul Nucleated RBC % 0.1 Sodium Pending Potassium Pending Chloride Pending Carbon Dioxide Pending Anion Gap Pending BUN Pending Creatinine Pending Est GFR ( Amer) Pending Est GFR (Non-Af Amer) Pending BUN/Creatinine Ratio Pending Glucose Pending Calcium Pending Magnesium Pending Total Bilirubin Pending AST Pending ALT Pending Alkaline Phosphatase Pending Total Creatine Kinase Pending Troponin I 0.04 H* (<0.04) ng/mL C-Reactive Protein Pending B-Natriuretic Peptide 968 H ( - 100) pg/mL Total Protein Pending Albumin Pending Globulin Pending Albumin/Globulin Ratio Pending TSH Pending Assess/Plan/Problems-Billing Assessment: 1. Squamous Cell Carcinoma, LLE Biopsy returned today for SCC, discussed with surgery. Will need wide excision next with plastic surgery. I attempted to reach Dr. Cantor's office this afternoon but they are already closed for the weekend. DC antibiotics. Continue morphine sr and standing tylenol for pain control. 2. Abdominal discomfort Resolved today after de-escalation of narcotic regimen and antibiotics. 3. Afib with RVR Improved after metoprolol dose was increased yesterday. Continue AC with pradaxa. 4. CAD continue statin, should also be on asa 81mg 4. Pancytopenia Can likely be attributed to sepsis, but she is also followed by hematology and is being worked up for marrow dysfunction; case discussed with Dr. Cortés, who recommended checking quantitative immunoglobulins to rule out this contributing to poor wound healing--this is pending.
--- NOTE | 2017-08-29 16:28 | PN ---
Progress Note - Progress Note Date of Service: 08/29/17 SOAP: Subjective: CC: leg wound HPI: 77 year old woman with chronic left leg wound, ongoing pain at that location. Pain medicine helps. No rash or diarrhea. Objective: [] Vital Signs Temp 36.3 C 08/29/17 11:13 Pulse 82 08/29/17 11:13 Resp 20 08/29/17 11:13 BP 130/57 08/29/17 11:13 Pulse Ox 100 08/29/17 11:13 Intake & Output 08/28/17 08/29/17 08/29/17 18:59 06:59 18:59 Intake Total 280 0 400 Output Total 0 0 Balance 280 0 400 Intake: IV Fluids 10 piperacillin 10 IVPB 50 piperacillin 50 Oral 220 0 400 Output: Urine 0 0 Other: Estimated Void Medium Medium Small # Bowel Movements 0 # Voids 1 0 1 Gen:awake, no distress HEENT:PERRL, MMM Heart:RRR no murmur Lungs:CTA BL Abd:+BS NTND soft Skin:no rash MSK: L leg wound wrapped Assessment: 1. chronic non pressure wound, left leg; biopsy showed SCC 2. leukopenia, resolved, suspect cipro side effect Plan: 1. DC augmentin, follow up with plastics Discussed with Dr Camarena
--- NOTE | 2017-08-29 18:27 | PN ---
Progress Note - Progress Note Date of Service: 08/29/17 Note: Surgery Progress: S: states that overall, she feels better today; less leg pain (she did not tolerate the placement of the Unna Boot yesterday) O: Vital Signs - 8 hr 08/29/17 08/29/17 08/29/17 10:35 11:01 11:13 Temperature 97.4 F 97.4 F Pulse Rate 82 82 Respiratory 18 20 20 Rate Blood Pressure 130/57 130/57 (mmHg) O2 Sat by Pulse 100 100 Oximetry LLE: dsg changed; no sig edema; mult open wounds lateral Left LE: prox wound measures 2.4 x 2.1 cm w/ intact eschar; stellate wound ~ 6 x 4 cm w/ fibrinous base w/ some granulation; 2 posterior wound w/ intact eschar each measuring 1- 1.5 cm in max dimensions. Xeroform dsg replaced. Titi'd well. Path: positive for squamous cell carcinoma (see report) A/P: nonhealing LLE wound w/ above path; cont local wound care until further evaluation for excision
[2017-08-29] MEDS: Atorvastatin* 20 MG TAB PO SCH (21:25)
[2017-08-29] MEDS: Al Hydrox/Mg Hydrox/Simet LIQ* 30 ML UDC PO PRN (23:41)
[2017-08-30] MEDS: Acetaminophen TAB* 325 MG PO SCH ×4 (04:41→21:03)
[2017-08-30 05:40] LABS: Hematocrit 25 % (35-47); Hemoglobin 8.5 g/dl (12.0-16.0); Mean Corpuscular HGB Conc 34 g/dl (31-36); Mean Corpuscular Hemoglobin 30 pg (27-31); Mean Corpuscular Volume 88 fL (80-97); Mean Platelet Volume 7 um3 (7.4-10.4); Red Blood Count 2.87 10^6/ul (4.0-5.4); Red Cell Distribution Width 16 % (10.5-15); White Blood Count 5.2 10^3/ul (3.5-10.8)
[2017-08-30 05:57] LABS: EGFR African American 84.8 (>60); EGFR Non-African American 65.9 (>60); Potassium 4.1 mmol/L (3.5-5.0)
[2017-08-30] MEDS: Al Hydrox/Mg Hydrox/Simet LIQ* 30 ML UDC PO PRN (09:05)
[2017-08-30] MEDS: Metoprolol Tartrate TAB* 25 MG PO SCH ×2 (09:06→21:03)
[2017-08-30] MEDS: Furosemide TAB* 20 MG PO SCH (09:06)
[2017-08-30] MEDS: Ondansetron ODT TAB* 4 MG PO PRN (09:06)
[2017-08-30] MEDS: Aspirin EC Low Dose* 81 MG TAB.EC PO SCH (09:07)
[2017-08-30] MEDS: Morphine TAB Extended Release (*) 15 MG TAB.ER PO SCH ×2 (09:07→21:03)
[2017-08-30] MEDS: Dronedarone TAB* 400 MG PO SCH ×2 (09:07→21:03)
[2017-08-30] MEDS: DULoxetine DR CAP* 20 MG CAP.DR PO SCH (09:12)
[2017-08-30] MEDS: DABIGATRAN 150 MG PO SCH ×2 (09:12→21:03)
[2017-08-30] MEDS: Artificial Tears* 15 ML BTL BOTH EYES PRN (09:14)
[2017-08-30] MEDS: Bacitracin OINTMENT* 1 TUBE TOPICAL SCH (12:31)
--- NOTE | 2017-08-30 16:49 | PN ---
Subjective Date of Service: 08/30/17 Interval History: Feeling better today, she has not required IV morphine for over 24 hours. She does get very short of breath, with palpitations and fatigue when she walks to the bathroom. Her heart rate goes up to 120s on tele, but returns to normal after a few seconds of rest. No leg pain, no numbness or tingling, no shortness of breath at rest. Family History: Unchanged from Admission Social History: Unchanged from Admission Past Medical History: Unchanged from Admission Objective Active Medications: Acetaminophen (Tylenol Tab*) 975 mg PO Q6H [facility] Last Admin: 08/30/17 16:02 Dose: 975 mg Al Hydrox/Mg Hydrox/Simethicone (Maalox Plus*) 30 ml PO Q2H PRN PRN Reason: indigestion Last Admin: 08/30/17 09:05 Dose: 30 ml Aspirin (Aspirin Ec Low Dose*) 81 mg PO DAILY [facility] Last Admin: 08/30/17 09:07 Dose: 81 mg Atorvastatin Calcium (Lipitor*) 20 mg PO BEDTIME [facility] Last Admin: 08/29/17 21:25 Dose: 20 mg Bacitracin (Bacitracin Ointment*) 1 applic TOPICAL DAILY [facility] Last Admin: 08/30/17 12:31 Dose: Not Given Cyanocobalamin (Vitamin B12 Inj *) 1,000 mcg IM We@1200 [facility] Last Admin: 08/27/17 12:14 Dose: 1,000 mcg Dabigatran (Pradaxa Cap(Nf)) 150 mg PO BID [facility] Last Admin: 08/30/17 09:12 Dose: 150 mg Dronedarone (Multaq Tab*) 400 mg PO BID [facility] Last Admin: 08/30/17 09:07 Dose: 400 mg Duloxetine HCl (Cymbalta Cap*) 20 mg PO DAILY [facility] Last Admin: 08/30/17 09:12 Dose: 20 mg Furosemide (Lasix Tab*) 20 mg PO DAILY [facility] Last Admin: 08/30/17 09:06 Dose: 20 mg Metoprolol Tartrate (Lopressor Iv*) 5 mg IV Q6H PRN PRN Reason: HEART RATE/PULSE > 120 [facility] Last Admin: 08/28/17 09:04 Dose: 5 mg Metoprolol Tartrate (Lopressor Tab*) 25 mg PO Q12HR [facility] Last Admin: 08/30/17 09:06 Dose: 25 mg Morphine Sulfate (Morphine Inj (Syringe)*) 2 mg IV Q4H PRN PRN Reason: PAIN - MILD Last Admin: 08/28/17 09:39 Dose: 2 mg Morphine Sulfate (Ms Contin(*)) 15 mg PO Q12H [facility] Last Admin: 08/30/17 09:07 Dose: 15 mg Ondansetron HCl (Zofran Odt Tab*) 4 mg PO Q6H PRN PRN Reason: NAUSEA Last Admin: 08/30/17 09:06 Dose: 4 mg Ondansetron HCl (Zofran Inj*) 4 mg IV Q4H PRN PRN Reason: NAUSEA Last Admin: 08/27/17 20:05 Dose: 4 mg Polyvinyl Alcohol (Polyvinyl Alcohol 1.4% Opth*) 1 drop BOTH EYES Q2H PRN PRN Reason: DRY EYE Last Admin: 08/30/17 09:14 Dose: 1 drop Simethicone (Mylicon Liq*) 20 mg PO BID PRN PRN Reason: INDIGESTION Vital Signs 08/29/17 08/29/17 08/29/17 20:09 21:26 21:28 Temperature 97.5 F Pulse Rate 68 Respiratory 18 18 18 Rate Blood Pressure 142/74 (mmHg) O2 Sat by Pulse 100 Oximetry 08/29/17 08/30/17 08/30/17 23:26 00:26 03:33 Temperature 97.5 F 97.5 F Pulse Rate 69 94 Respiratory 18 20 20 Rate Blood Pressure 165/72 136/82 (mmHg) O2 Sat by Pulse 100 99 Oximetry 08/30/17 08/30/17 08/30/17 07:39 08:00 09:07 Temperature 99.2 F Pulse Rate 73 Respiratory 16 16 16 Rate Blood Pressure 163/81 (mmHg) O2 Sat by Pulse 98 Oximetry 08/30/17 08/30/17 08/30/17 11:07 12:15 15:57 Temperature 99.1 F 97.4 F Pulse Rate 86 87 Respiratory 16 16 16 Rate Blood Pressure 139/78 146/82 (mmHg) O2 Sat by Pulse 100 98 Oximetry Oxygen Devices in Use Now: None Appearance: alert, nontoxic Eyes: No Scleral Icterus, PERRLA Ears/Nose/Mouth/Throat: NL Teeth, Lips, Gums Neck: - - JVP ~12 cm h20 Respiratory: - - crackles b/l bases Cardiovascular: - - irregularly irregular rhythm Abdominal: NL Sounds; No Tenderness; No Distention, No Hepatosplenomegaly Lymphatic: No Cervical Adenopathy Extremities: No Edema Skin: - - left leg dressed Neurological: Alert and Oriented x 3 Result Diagrams: 08/30/17 05:21 08/30/17 05:21 Additional Lab and Data: Lab Results 08/25/17 08/25/17 08/25/17 Range/Units 15:55 15:55 15:55 WBC 1.6 L (3.5-10.8) 10^3/ul RBC 2.90 L (4.0-5.4) 10^6/ul Hgb 8.6 L (12.0-16.0) g/dl Hct 26 L (35-47) % MCV 88 (80-97) fL MCH 30 (27-31) pg MCHC 34 (31-36) g/dl RDW 16 H (10.5-15) % Plt Count 150 (150-450) 10^3/ul MPV 7 L (7.4-10.4) um3 Neut % (Auto) 64.2 (38-83) % Lymph % (Auto) 20.4 L (25-47) % [place] % (Auto) 13.6 H (1-9) % Eos % (Auto) 0.9 (0-6) % Baso % (Auto) 0.9 (0-2) % Absolute Neuts (auto) 1.0 L (1.5-7.7) 10^3/ul Absolute Lymphs (auto) 0.3 L (1.0-4.8) 10^3/ul Absolute Monos (auto) 0.2 (0-0.8) 10^3/ul Absolute Eos (auto) 0 (0-0.6) 10^3/ul Absolute Basos (auto) 0 (0-0.2) 10^3/ul Absolute Nucleated RBC 0 10^3/ul Nucleated RBC % 0.1 Sodium Pending Potassium Pending Chloride Pending Carbon Dioxide Pending Anion Gap Pending BUN Pending Creatinine Pending Est GFR ( Amer) Pending Est GFR (Non-Af Amer) Pending BUN/Creatinine Ratio Pending Glucose Pending Calcium Pending Magnesium Pending Total Bilirubin Pending AST Pending ALT Pending Alkaline Phosphatase Pending Total Creatine Kinase Pending Troponin I 0.04 H* (<0.04) ng/mL C-Reactive Protein Pending B-Natriuretic Peptide 968 H ( - 100) pg/mL Total Protein Pending Albumin Pending Globulin Pending Albumin/Globulin Ratio Pending TSH Pending Assess/Plan/Problems-Billing Assessment: 1. Squamous Cell Carcinoma, LLE Biopsy returned yesterday for SCC, discussed with surgery and Ms. Reid and her family. Will need wide excision next with plastic surgery. I attempted to reach Dr. Cantor's yesterday but they were already closed for the weekend. Antibiotics DC'ed. Continue morphine sr and standing tylenol for pain control--she has much better control with this. Will need recommendations from surgery for wound care upon discharge. 2. Abdominal discomfort Resolved today after de-escalation of narcotic regimen and antibiotics. 3. Afib with RVR Improved after metoprolol dose was increased yesterday. Continue AC with pradaxa. 4. Volume Overload On admission, her home lasix dose was held as she was volume resuscitated. On exam, she has some volume overload that is responding well to her home lasix dose started 2 days ago. I suspect this is accounting for some of her dyspnea on exertion, in combination with deconditioning. 5. CAD continue statin, should also be on asa 81mg 6. Pancytopenia Can likely be attributed to sepsis, but she is also followed by hematology and is being worked up for marrow dysfunction; case discussed with Dr. Cortés, who recommended checking quantitative immunoglobulins to rule out this contributing to poor wound healing--this is pending. 7. disposition. Awaiting Short Term Rehab placement. Discussed with case management.
[2017-08-30] MEDS: Atorvastatin* 20 MG TAB PO SCH (21:03)
[2017-08-31] MEDS: Acetaminophen TAB* 325 MG PO SCH ×4 (02:28→21:03)
[2017-08-31] MEDS: Morphine TAB Extended Release (*) 15 MG TAB.ER PO SCH ×2 (09:07→21:03)
[2017-08-31] MEDS: Furosemide TAB* 20 MG PO SCH (09:07)
[2017-08-31] MEDS: Dronedarone TAB* 400 MG PO SCH ×2 (09:07→21:03)
[2017-08-31] MEDS: Bacitracin OINTMENT* 1 TUBE TOPICAL SCH (09:08)
[2017-08-31] MEDS: DABIGATRAN 150 MG PO SCH (09:08)
[2017-08-31] MEDS: Metoprolol Tartrate TAB* 25 MG PO SCH ×2 (09:08→21:12)
[2017-08-31] MEDS: DULoxetine DR CAP* 20 MG CAP.DR PO SCH (09:08)
[2017-08-31] MEDS: Aspirin EC Low Dose* 81 MG TAB.EC PO SCH (09:08)
[2017-08-31] MEDS: Metoprolol Tartrate IV* 1 MG/ML 5 ML VIAL IV PRN (12:51)
--- NOTE | 2017-08-31 17:09 | PN ---
Subjective Date of Service: 08/31/17 Interval History: HR has been in 89-115 range ,m but pt feels very SOB and tired when ambulating Family History: Unchanged from Admission Social History: Unchanged from Admission Past Medical History: Unchanged from Admission Objective Active Medications: Acetaminophen (Tylenol Tab*) 975 mg PO Q6H [facility] Last Admin: 08/31/17 13:59 Dose: 975 mg Al Hydrox/Mg Hydrox/Simethicone (Maalox Plus*) 30 ml PO Q2H PRN PRN Reason: indigestion Last Admin: 08/30/17 09:05 Dose: 30 ml Aspirin (Aspirin Ec Low Dose*) 81 mg PO DAILY [facility] Last Admin: 08/31/17 09:08 Dose: 81 mg Atorvastatin Calcium (Lipitor*) 20 mg PO BEDTIME [facility] Last Admin: 08/30/17 21:03 Dose: 20 mg Bacitracin (Bacitracin Ointment*) 1 applic TOPICAL DAILY [facility] Last Admin: 08/31/17 09:08 Dose: 1 applic Cyanocobalamin (Vitamin B12 Inj *) 1,000 mcg IM We@1200 [facility] Last Admin: 08/27/17 12:14 Dose: 1,000 mcg Dabigatran (Pradaxa Cap(Nf)) 75 mg PO BID [facility] Dronedarone (Multaq Tab*) 400 mg PO BID [facility] Last Admin: 08/31/17 09:07 Dose: 400 mg Duloxetine HCl (Cymbalta Cap*) 20 mg PO DAILY [facility] Last Admin: 08/31/17 09:08 Dose: 20 mg Furosemide (Lasix Tab*) 20 mg PO DAILY [facility] Last Admin: 08/31/17 09:07 Dose: 20 mg Metoprolol Tartrate (Lopressor Iv*) 5 mg IV Q6H PRN PRN Reason: HEART RATE/PULSE > 120 MM[facility] Last Admin: 08/31/17 12:51 Dose: 5 mg Metoprolol Tartrate (Lopressor Tab*) 37.5 mg PO Q12HR [facility] Morphine Sulfate (Morphine Inj (Syringe)*) 2 mg IV Q4H PRN PRN Reason: PAIN - MILD Last Admin: 08/28/17 09:39 Dose: 2 mg Morphine Sulfate (Ms Contin(*)) 15 mg PO Q12H [facility] Last Admin: 08/31/17 09:07 Dose: 15 mg Ondansetron HCl (Zofran Odt Tab*) 4 mg PO Q6H PRN PRN Reason: NAUSEA Last Admin: 08/30/17 09:06 Dose: 4 mg Ondansetron HCl (Zofran Inj*) 4 mg IV Q4H PRN PRN Reason: NAUSEA Last Admin: 08/27/17 20:05 Dose: 4 mg Polyvinyl Alcohol (Polyvinyl Alcohol 1.4% Opth*) 1 drop BOTH EYES Q2H PRN PRN Reason: DRY EYE Last Admin: 08/30/17 09:14 Dose: 1 drop Simethicone (Mylicon Liq*) 20 mg PO BID PRN PRN Reason: INDIGESTION Vital Signs 08/30/17 08/30/17 08/30/17 18:00 19:14 20:00 Temperature 97.4 F 97.7 F Pulse Rate 55 92 Respiratory 18 18 20 Rate Blood Pressure 148/90 152/92 (mmHg) O2 Sat by Pulse 100 100 Oximetry 08/30/17 08/30/17 08/30/17 21:03 21:08 23:03 Temperature Pulse Rate Respiratory 20 20 20 Rate Blood Pressure (mmHg) O2 Sat by Pulse Oximetry 08/31/17 08/31/17 08/31/17 00:08 03:57 07:51 Temperature 97.6 F 97.2 F 97.9 F Pulse Rate 124 124 105 Respiratory 20 20 18 Rate Blood Pressure 147/89 142/85 151/75 (mmHg) O2 Sat by Pulse 100 100 96 Oximetry 08/31/17 08/31/17 08/31/17 08:00 09:07 11:07 Temperature Pulse Rate Respiratory 18 18 16 Rate Blood Pressure (mmHg) O2 Sat by Pulse Oximetry 08/31/17 08/31/17 08/31/17 12:07 12:41 15:52 Temperature 96.7 F 97.4 F Pulse Rate 89 49 Respiratory 16 16 Rate Blood Pressure 168/91 143/88 143/79 (mmHg) O2 Sat by Pulse 97 94 Oximetry Oxygen Devices in Use Now: None Appearance: 77 yo f in nAD, AAOx3 Eyes: No Scleral Icterus, PERRLA Ears/Nose/Mouth/Throat: NL Teeth, Lips, Gums, Mucous Membranes Moist Neck: NL Appearance and Movements; NL JVP, Trachea Midline Respiratory: Symmetrical Chest Expansion and Respiratory Effort, Clear to Auscultation Cardiovascular: - - irregular Abdominal: NL Sounds; No Tenderness; No Distention, No Hepatosplenomegaly Lymphatic: No Cervical Adenopathy Extremities: No Edema, No Clubbing, Cyanosis Skin: No Nodules or Sclerosis, - - left lateral LE with uceration of approx 8x 4 cm in diam stage 3, no infection noted Result Diagrams: 08/30/17 05:21 08/30/17 05:21 Additional Lab and Data: Lab Results 08/25/17 08/25/17 08/25/17 Range/Units 15:55 15:55 15:55 WBC 1.6 L (3.5-10.8) 10^3/ul RBC 2.90 L (4.0-5.4) 10^6/ul Hgb 8.6 L (12.0-16.0) g/dl Hct 26 L (35-47) % MCV 88 (80-97) fL MCH 30 (27-31) pg MCHC 34 (31-36) g/dl RDW 16 H (10.5-15) % Plt Count 150 (150-450) 10^3/ul MPV 7 L (7.4-10.4) um3 Neut % (Auto) 64.2 (38-83) % Lymph % (Auto) 20.4 L (25-47) % [place] % (Auto) 13.6 H (1-9) % Eos % (Auto) 0.9 (0-6) % Baso % (Auto) 0.9 (0-2) % Absolute Neuts (auto) 1.0 L (1.5-7.7) 10^3/ul Absolute Lymphs (auto) 0.3 L (1.0-4.8) 10^3/ul Absolute Monos (auto) 0.2 (0-0.8) 10^3/ul Absolute Eos (auto) 0 (0-0.6) 10^3/ul Absolute Basos (auto) 0 (0-0.2) 10^3/ul Absolute Nucleated RBC 0 10^3/ul Nucleated RBC % 0.1 Sodium Pending Potassium Pending Chloride Pending Carbon Dioxide Pending Anion Gap Pending BUN Pending Creatinine Pending Est GFR ( Amer) Pending Est GFR (Non-Af Amer) Pending BUN/Creatinine Ratio Pending Glucose Pending Calcium Pending Magnesium Pending Total Bilirubin Pending AST Pending ALT Pending Alkaline Phosphatase Pending Total Creatine Kinase Pending Troponin I 0.04 H* (<0.04) ng/mL C-Reactive Protein Pending B-Natriuretic Peptide 968 H ( - 100) pg/mL Total Protein Pending Albumin Pending Globulin Pending Albumin/Globulin Ratio Pending TSH Pending Assess/Plan/Problems-Billing Assessment: 77 yo F with h/o chronic a. fib with left leg ulcer x 3 months - Patient Problems (1) Squamous cell carcinoma of lower leg Comment: off antibiotics will d/w Dr. Cantor in aM re: further plans of excision (2) Atrial fibrillation Comment: improved after metoprolol dose was increased on 08/29/17, will titrate up to 37.5 BID today. Continue AC with pradaxa, but dose adjusted to renal function and multaq use cont Multaq (3) Volume overload Comment: On admission, her home lasix dose was held as she was volume resuscitated. suspected this is accounting for some of her dyspnea on exertion, in combination with deconditioning. cont incentive spirometry (4) CAD (coronary artery disease) Comment: Continue statin, metoprolol and ASA (5) Pancytopenia Comment: leukopenia and thrombocytopenia resolved Normocytic anemia chronic, dating back to 2014, will check stool guaiac and iron studies IG G levels low-will d/c with hematology in aM (6) DVT prophylaxis Comment: Pradaxa Status and Disposition: inpatient, planned to d/c to STR
[2017-08-31] MEDS: Atorvastatin* 20 MG TAB PO SCH (21:03)
[2017-08-31] MEDS: CMC: Dabigatran CAP(NF) 75 MG CAP PO SCH (22:52)
[2017-09-01] MEDS: Acetaminophen TAB* 325 MG PO SCH ×4 (02:32→20:11)
[2017-09-01 05:55] LABS: BUN/Creatinine Ratio 20.7 (8-20); Calcium 8.4 mg/dL (8.6-10.3); EGFR African American 55.6 (>60); EGFR Non-African American 43.3 (>60); Potassium 4.1 mmol/L (3.5-5.0)
[2017-09-01] MEDS: Bacitracin OINTMENT* 1 TUBE TOPICAL SCH (08:44)
[2017-09-01] MEDS: DULoxetine DR CAP* 20 MG CAP.DR PO SCH (08:50)
[2017-09-01] MEDS: Morphine TAB Extended Release (*) 15 MG TAB.ER PO SCH ×2 (08:50→20:13)
[2017-09-01] MEDS: Metoprolol Tartrate TAB* 25 MG PO SCH ×2 (08:50→20:12)
[2017-09-01] MEDS: Dronedarone TAB* 400 MG PO SCH (08:51)
[2017-09-01] MEDS: Furosemide TAB* 20 MG PO SCH (08:51)
[2017-09-01] MEDS: Aspirin EC Low Dose* 81 MG TAB.EC PO SCH (08:51)
[2017-09-01] MEDS: CMC: Dabigatran CAP(NF) 75 MG CAP PO SCH ×2 (08:51→20:17)
[2017-09-01] MEDS: Ondansetron ODT TAB* 4 MG PO PRN (08:52)
[2017-09-01] MEDS: Metoprolol Tartrate IV* 1 MG/ML 5 ML VIAL IV PRN ×2 (08:58→21:25)
--- NOTE | 2017-09-01 16:04 | PN ---
Subjective Date of Service: 09/01/17 Interval History: Pt still feels CAPPS, but 02 sat did not decrease when ambulating. Her HR goes up to 150 when she goes to bathroom or eats Family History: Unchanged from Admission Social History: Unchanged from Admission Past Medical History: Unchanged from Admission Objective Active Medications: Acetaminophen (Tylenol Tab*) 975 mg PO Q6H [facility] Last Admin: 09/01/17 14:37 Dose: 975 mg Al Hydrox/Mg Hydrox/Simethicone (Maalox Plus*) 30 ml PO Q2H PRN PRN Reason: indigestion Last Admin: 08/30/17 09:05 Dose: 30 ml Aspirin (Aspirin Ec Low Dose*) 81 mg PO DAILY [facility] Last Admin: 09/01/17 08:51 Dose: 81 mg Atorvastatin Calcium (Lipitor*) 20 mg PO BEDTIME [facility] Last Admin: 08/31/17 21:03 Dose: 20 mg Cyanocobalamin (Vitamin B12 Inj *) 1,000 mcg IM We@1200 [facility] Last Admin: 08/27/17 12:14 Dose: 1,000 mcg Dabigatran (Pradaxa Cap(Nf)) 75 mg PO BID [facility] Last Admin: 09/01/17 08:51 Dose: 75 mg Dronedarone (Multaq Tab*) 400 mg PO BID [facility] Last Admin: 09/01/17 08:51 Dose: 400 mg Duloxetine HCl (Cymbalta Cap*) 20 mg PO DAILY [facility] Last Admin: 09/01/17 08:50 Dose: 20 mg Furosemide (Lasix Tab*) 20 mg PO DAILY [facility] Last Admin: 09/01/17 08:51 Dose: 20 mg Metoprolol Tartrate (Lopressor Iv*) 5 mg IV Q6H PRN PRN Reason: HEART RATE/PULSE > 120 [facility] Last Admin: 09/01/17 08:58 Dose: 5 mg Metoprolol Tartrate (Lopressor Tab*) 37.5 mg PO Q12HR [facility] Last Admin: 09/01/17 08:50 Dose: 37.5 mg Morphine Sulfate (Ms Contin(*)) 15 mg PO Q12H [facility] Last Admin: 09/01/17 08:50 Dose: 15 mg Ondansetron HCl (Zofran Odt Tab*) 4 mg PO Q6H PRN PRN Reason: NAUSEA Last Admin: 09/01/17 08:52 Dose: 4 mg Ondansetron HCl (Zofran Inj*) 4 mg IV Q4H PRN PRN Reason: NAUSEA Last Admin: 08/27/17 20:05 Dose: 4 mg Polyvinyl Alcohol (Polyvinyl Alcohol 1.4% Opth*) 1 drop BOTH EYES Q2H PRN PRN Reason: DRY EYE Last Admin: 08/30/17 09:14 Dose: 1 drop Simethicone (Mylicon Liq*) 20 mg PO BID PRN PRN Reason: INDIGESTION Vital Signs 08/31/17 08/31/17 08/31/17 19:43 20:00 21:03 Temperature 98.8 F Pulse Rate 158 Respiratory 20 20 20 Rate Blood Pressure 147/80 (mmHg) O2 Sat by Pulse 100 Oximetry 08/31/17 08/31/17 09/01/17 23:03 23:46 02:39 Temperature 97.9 F Pulse Rate 75 96 Respiratory 18 20 Rate Blood Pressure 150/88 (mmHg) O2 Sat by Pulse 95 Oximetry 09/01/17 09/01/17 09/01/17 02:40 07:22 07:33 Temperature 97.7 F 97.7 F Pulse Rate 128 116 Respiratory 16 20 20 Rate Blood Pressure 158/97 155/88 (mmHg) O2 Sat by Pulse 96 95 Oximetry 09/01/17 09/01/17 09/01/17 08:50 10:50 11:38 Temperature 98.5 F Pulse Rate Respiratory 18 16 19 Rate Blood Pressure 152/88 (mmHg) O2 Sat by Pulse 91 Oximetry Oxygen Devices in Use Now: None Appearance: 77 yo f in nAD, AAOx3 Eyes: No Scleral Icterus, PERRLA Ears/Nose/Mouth/Throat: NL Teeth, Lips, Gums, Mucous Membranes Moist Neck: NL Appearance and Movements; NL JVP, Trachea Midline Respiratory: Symmetrical Chest Expansion and Respiratory Effort, Clear to Auscultation Cardiovascular: - - irregular Abdominal: NL Sounds; No Tenderness; No Distention, No Hepatosplenomegaly Lymphatic: No Cervical Adenopathy Extremities: No Edema, No Clubbing, Cyanosis Skin: No Rash or Ulcers, No Nodules or Sclerosis Neurological: Alert and Oriented x 3, NL Muscle Strength and Tone Result Diagrams: 08/30/17 05:21 09/01/17 04:29 Additional Lab and Data: Lab Results 08/25/17 08/25/17 08/25/17 Range/Units 15:55 15:55 15:55 WBC 1.6 L (3.5-10.8) 10^3/ul RBC 2.90 L (4.0-5.4) 10^6/ul Hgb 8.6 L (12.0-16.0) g/dl Hct 26 L (35-47) % MCV 88 (80-97) fL MCH 30 (27-31) pg MCHC 34 (31-36) g/dl RDW 16 H (10.5-15) % Plt Count 150 (150-450) 10^3/ul MPV 7 L (7.4-10.4) um3 Neut % (Auto) 64.2 (38-83) % Lymph % (Auto) 20.4 L (25-47) % [place] % (Auto) 13.6 H (1-9) % Eos % (Auto) 0.9 (0-6) % Baso % (Auto) 0.9 (0-2) % Absolute Neuts (auto) 1.0 L (1.5-7.7) 10^3/ul Absolute Lymphs (auto) 0.3 L (1.0-4.8) 10^3/ul Absolute Monos (auto) 0.2 (0-0.8) 10^3/ul Absolute Eos (auto) 0 (0-0.6) 10^3/ul Absolute Basos (auto) 0 (0-0.2) 10^3/ul Absolute Nucleated RBC 0 10^3/ul Nucleated RBC % 0.1 Sodium Pending Potassium Pending Chloride Pending Carbon Dioxide Pending Anion Gap Pending BUN Pending Creatinine Pending Est GFR ( Amer) Pending Est GFR (Non-Af Amer) Pending BUN/Creatinine Ratio Pending Glucose Pending Calcium Pending Magnesium Pending Total Bilirubin Pending AST Pending ALT Pending Alkaline Phosphatase Pending Total Creatine Kinase Pending Troponin I 0.04 H* (<0.04) ng/mL C-Reactive Protein Pending B-Natriuretic Peptide 968 H ( - 100) pg/mL Total Protein Pending Albumin Pending Globulin Pending Albumin/Globulin Ratio Pending TSH Pending Assess/Plan/Problems-Billing Assessment: 77 yo F with h/o chronic a. fib with left leg ulcer x 3 months - Patient Problems (1) Squamous cell carcinoma of lower leg Comment: off antibiotics d/w Dr. Cantor re: further plans of excision. Recommended to see Dr. Cantor in one week and discuss plans of surgery for later(probably 2-4 weeks from now)- family agrees (2) Atrial fibrillation Comment: metoprolol dose was increased up to 37.5 BID on 08/31/17, still continues to have increased HR with minimal exercise. Asked Dr. Thornton to see pt in consult. Continue AC with pradaxa, but dose adjusted to renal function and multaq use cont Multaq Echo pending (3) Volume overload Comment: On admission, her home lasix dose was held as she was volume resuscitated. suspected this is accounting for some of her dyspnea on exertion, in combination with deconditioning, but now pt appears euvolemic and still SOB with increased HR when walking. Cardiology consulted cont incentive spirometry (4) CAD (coronary artery disease) Comment: Continue statin, metoprolol and ASA (5) Pancytopenia Comment: leukopenia and thrombocytopenia resolved Normocytic anemia chronic, dating back to 2014. stool guaiac pending, and iron studies unremarkable. IG G levels low-D/w Dr. Case-appropitate to f/u with Dr. Cortés as outpatient (6) Creatinine elevation Comment: ranging from 0.7 to 1.2 in the past 2 years. cont current dose of Lasix and monitor (7) DVT prophylaxis Comment: Pradaxa Status and Disposition: inpatient, planned to d/c to STR
--- NOTE | 2017-09-01 16:49 | ECHO ---
Patient: DAYANA SOTOMAYOR [facility] Rec#: [id number] : 1940 Date: 09/01/2017 Age: 77y Height: 157.48 cm / 62.0 in Weight: 58.51 kg / 129.0 lbs Sex: F BSA: 1.59 Room#: 448 Admit Date#: 08/25/2017 Type: Inpatient Referring: Janine Sanchez MD Reading: Cristin Thornton MD Quality Assurance Test Program Manager: Navya Ventura,RALPHCS,RDMS CC: Navya Calderon NP CC: Sherwin Taylor MD Transthoracic Echocardiogram Indication: Dyspnea BP: 152/88 HR: 104 Rhythm: A-Fib Findings History: CAD, AFIB, DM, HTN, HLD, GERD Technical Comments: The study quality is good. Left Ventricle: The left ventricular chamber size is normal. Mild concentric left ventricular hypertrophy is observed. Severe global hypokinesis of the left ventricle is observed. The estimated ejection fraction is 20-25%. The assessment of diastolic function is non-diagnostic. Left Atrium: The left atrium is severely dilated. Right Ventricle: The right ventricle is slightly dilated. The right ventricular global systolic function is moderately reduced. Right Atrium: The right atrium is mildly dilated. Aortic Valve: The aortic valve is trileaflet. The aortic valve leaflets are mildly thickened. There is aortic annular calcification. There is trace to mild aortic regurgitation. There is mild aortic stenosis. could be undeestimated given severely reduced LV EF The mean gradient of the aortic valve is 2.7 mmHg. The aortic valve area, by peak velocities, is calculated at 1.5 cm2. Mitral Valve: Moderate mitral annular calcification present. The mitral valve leaflets are mildly thickened. There is moderate mitral regurgitation. Moderate-severe MR There is no evidence of mitral stenosis. Tricuspid Valve: The tricuspid valve leaflets are normal. There is mild to moderate tricuspid regurgitation. There is evidence of mild to moderate pulmonary hypertension. Pulmonic Valve: The pulmonic valve appears normal. There is a trace pulmonic regurgitation. Pericardium: There is no significant pericardial effusion. A left pleural effusion is present. Aorta: The aortic root appears normal. The aortic arch is not well visualized. Pulmonary Artery: The main pulmonary artery appears normal. Venous: The inferior vena cava is dilated. There is less than 50% respiratory change in the inferior vena cava dimension. Summary: There are changes noted when compared to the previous study done on 07/28/2014, LV EF is now severely reduced instead of 50-55% then. Mixed valvular disease are more significant now. Conclusions The left ventricular chamber size is normal. Mild concentric left ventricular hypertrophy is observed. The estimated ejection fraction is 20-25%. The assessment of diastolic function is non-diagnostic. The left atrium is severely dilated. The right atrium is mildly dilated. There is trace to mild aortic regurgitation. There is mild aortic stenosis. could be undeestimated given severely reduced LV EF There is moderate mitral regurgitation. Moderate-severe MR There is mild to moderate tricuspid regurgitation. There is evidence of mild to moderate pulmonary hypertension. There is a trace pulmonic regurgitation. There are changes noted when compared to the previous study done on 07/28/2014, LV EF is now severely reduced instead of 50-55% then. Mixed valvular disease are more significant now. Measurements Name Value Normal Range RVIDd (AP) 2D 3 cm (0.9 - 2.6) RVDdMajor (2D) 3.1 cm (2.2 - 4.4) RAd ISD 4CH 5.3 cm (3.4 - 4.9) RA (A4C)W 4.5 cm (2.9 - 4.6) IVSd (2D) 1.3 cm (0.6 - 1) LVPWd (2D) 1.3 cm (0.6 - 1) LVIDd (2D) 5 cm (3.6 - 5.4) LVIDs (2D) 4.1 cm - LV FS (2D) 17 % (25 - 45) Aortic Annulus 1.7 cm (1.4 - 2.6) Ao root diameter (2D) 2.5 cm (2.1 - 3.5) Ascending Ao 2.7 cm (2.1 - 3.4) LA dimension (AP) 2D 5 cm (2.3 - 3.8) LAd ISD 4CH 6.7 cm (2.9 - 5.3) LA ISD 4CH W 5.3 cm (2.5 - 4.5) Name Value Normal Range LA ESV SP 4CH (A/L) 145.99 ml - LA ESV SP 2CH (A/L) 175.63 ml - LA ESV BP (A/L) 161.69 ml - LA ESV BP (A/L) index 102 ml/m2 - LA ESV SP 4CH (MOD) 132.78 ml - LA ESV SP 2CH (MOD) 165.02 ml - Name Value Normal Range MV E-wave Vmax 1.3 m/sec - MV deceleration time 133.5 msec - LV lateral e' Vmax 0.08 m/sec - LV E:e' lateral ratio 16 ratio - Name Value Normal Range AV Vmax 1.1 m/sec - AV VTI 20.2 cm - AV peak gradient 5 mmHg - AV mean gradient 2.7 mmHg - LVOT diameter 1.9 cm - LVOT Vmax 0.6 m/sec - LVOT VTI 9.2 cm - LVOT peak gradient 1.4 mmHg - LVOT mean gradient 0.6 mmHg - DOI (VTI) 0.5 ratio - RON (continuity Vmax) 1.5 cm2 - RON (continuity VTI) 1.3 cm2 - ANGE Vmax 0.2 m/sec - Name Value Normal Range MV Vmax 1.4 m/sec - MV VTI 23 cm - MV peak gradient 8 mmHg - MV mean gradient 3.2 mmHg - MV PHT 67 msec - MR Vmax 5.4 m/sec - MR VTI 169 cm - MR volume (PISA) 18 ml - MR flow (PISA) 62.59 ml/sec - MR ERO 11 cm2 - MR PISA radius 0.5 cm - MR alias Vmax 37 cm/sec - MVA (PHT) 3.3 cm2 - MVA (continuity VTI) 1.2 cm2 - Name Value Normal Range TR Vmax 3.2 m/sec - TR peak gradient 41 mmHg - RAP 8 mmHg - RVSP 49 mmHg - IVC diameter 2.2 cm - Name Value Normal Range PV Vmax 0.5 m/sec - PV peak gradient 1 mmHg -
[2017-09-01] MEDS: Lisinopril TAB* 5 MG PO SCH (20:11)
[2017-09-01] MEDS: Atorvastatin* 20 MG TAB PO SCH (20:11)
--- NOTE | 2017-09-01 22:24 | CONS ---
CC: Dr. Sanchez; Navya Calderon, OPERATIONS VOCATIONAL INSTRUCTOR: Dr. Thornton; Dr. Taylor * CARDIOLOGY CONSULT: DATE OF CONSULT: 09/01/17 HISTORY OF PRESENT ILLNESS: I was asked by hospitalist service to see this 77- year- old female patient who was hospitalized on 08/25/17 for left lower extremity ulcer that has not been healing. The patient was diagnosed with a history of squamous cell cancer of the leg . I was called because of atrial fibrillation. In reviewing the previous note, the patient does have a history of atrial fibrillation, probably chronic. Last visit with Dr. Taylor on 08/09/16 , the patient was in persistent atrial fibrillation and bradycardia. Her medications have been adjusted. She has been maintained on Multaq and also she was at that time and she is still on Pradaxa. It was noticed that her heart rate is still tachycardic at more than 100 with easy shortness of breath when walking. Cardiology consult was further requested. The patient was hospitalized. She had some chills, lightheadedness, and sweats. She does have a known history of coronary artery disease, type 2 diabetes mellitus, hypertension, hyperlipidemia, chronic back pain, severe right hip osteoarthritis and she is status post right total hip in 2014. As per evaluation from the hospitalist service with Dr. 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 She is off antibiotic at the present time. Further plans as per Dr. Cantor with excision and then discussed the plan of surgery for later on. The patient had no nausea. No vomiting. No hematochezia. No skin rash. No abdominal pain. No fever at the present time. No chills. No syncope is appreciated. She does have some element of shortness of breath. PAST MEDICAL HISTORY: As outlined above. Other medical history includes coronary artery disease, non-ST elevation myocardial infarction in 2008, medical management at that time, cardiac cath done in 2013, EF 50% to 55%, mild aortic insufficiency, mild mitral insufficiency, that was her echocardiogram in 2013. A cardiac cath on 09/24/09, normal LV function, LAD 20%, OM1 40%, RCA calcified, no stenosis. She had a history of cardioversion in 2012 and in 2013. MEDICATIONS: As an inpatient include: 1. Tylenol 975 mg p.o. q.6 hours. 2. Maalox 30 mL p.o. q.2 hours p.r.n. for indigestion. 3. Aspirin 81 mg daily. 4. Lipitor 20 mg at bedtime once daily. 5. Pradaxa adjusted to her kidney function 75 mg p.o. b.i.d. 6. Multaq, but I discontinued this. She was on 400 mg twice a day. 7. Cymbalta 20 mg daily. 8. Lasix 20 mg daily. 9. Lopressor 5 mg IV q.6 hours p.r.n. for heart rate more than 100. 10. Lopressor tablet 37.5 mg p.o. q.12 hours. 11. She is on morphine sulfate 15 mg p.o. q.12 hours. 12. Zofran 4 mg p.o. q.6 hours. ALLERGIES: She is allergic to SULFA ANTIBIOTICS in 2012, PENICILLIN in 2014. FAMILY HISTORY: No family history of premature coronary artery disease. SOCIAL HISTORY: She had a history of smoking, but she quit many years ago. She drinks alcohol social. No history of illicit drug use. REVIEW OF SYSTEMS: Review of her all other systems initially is negative. PHYSICAL EXAM: On exam, she is awake, alert, and oriented. She is not in acute distress. She had no symptoms of chest pain. Her vitals, blood pressure is 152/88; pulse 105, she is in AFib; temperature 98.5. Head and Neck Exam: Normocephalic, atraumatic. Head, Ear, Nose, and Throat: Essentially benign. Neck: Supple. JVP is not elevated. No carotid bruit. No masses in the neck are appreciated. Chest is diminished air entry bilaterally with bilateral rhonchi at the bases. Heart: Irregularly irregular, S1 and S2. No added sounds, no gallops, no rubs. There is a grade 2/6 systolic murmur at the left sternal border. Abdomen: Benign, soft, positive bowel sounds. Extremities: No edema. No cyanosis. No clubbing. Skin exam is normal. Psych: Normal affect and mood. HEALTH EDUCATOR: No focal deficits appreciated. DIAGNOSTIC STUDIES/LAB DATA: Her labs showed the following, white blood cell 5.2, hemoglobin 8.5, hematocrit 25, and platelets is 16,000. Her sodium is 133 , potassium 4.1, chloride 103, total CO2 24, BUN 25, creatinine 1.21. Her calcium 8.4 and LFTs are normal. Her chest x-ray was reported to be consistent with congestive heart failure. Her EKG on the 2nd showed the patient to be in AFib, heart rate [address]-T changes. Her echo from today showed her EF to be about 20% to 25%, which is new compared to echo done in 2014. At that time, she had an EF 50% to 55%. She also does have at least moderate mitral insufficiency, mild aortic stenosis, although could be underestimated because of her severely reduced left ventricular systolic function. There is [id number] tricuspid insufficiency and [id number]-pr-[id number] pulmonary hypertension. IMPRESSION: The patient is a 77-year-old female patient with: 1. Presentation with infection and lower extremity leg ulcer with squamous cell cancer as described. 2. Atrial fibrillation, chronic with rapid ventricular response. 3. Severely reduced left ventricular systolic function with element of congestive heart failure by her x-ray exam. Her EF is 20% to 25% by transthoracic echo from today. She used to have an EF of 50% to 55% by her last reported echo in 2013. 4. Systemic arterial hypertension. 5. Abnormal EKG as described. 6. Significant anemia and pancytopenia. 7. At least moderate mitral insufficiency. 8. Mild aortic stenosis, although this could be underestimated because of her severely reduced left ventricular systolic function. 9. Qxbp-dy-jebhdksa tricuspid insufficiency. 10. Mgnn-ge-ocrpctes pulmonary hypertension. PLAN: Very complex situation, high comorbidities, and risks at the present time. Her rapid ventricular response is multifactorial in nature including her congestive heart failure and her significant anemia and infection and her squamous cell and open ulcer in the lower extremity. Given her severely reduced left ventricular function of unknown duration, that could be multifactorial including hypertensive heart disease or tachycardia-induced cardiomyopathy as the last echo was 3 years ago, it is not immediately clear for how long her EF has been reduced like this. I discontinued Multaq and continued beta-zara treatment and I added digoxin at 0.125 mg daily. I was hoping to add Cardizem, but it is relatively contraindicated at the present time. She does have also valvular disease. My feeling probably it is related to her cardiomyopathy. I agree with Lasix to be used wisely at the present time to prevent any significant dehydration. Continue beta-zara, digoxin. Initiate MARIANNA inhibitor given her severe cardiomyopathy and congestive heart failure. Correct noncardiac secondary issues including her anemia, significant pancytopenia, infection, squamous cell cancer, and pain management as you are already doing. I's and O's. Keep electrolytes carefully within normal limits especially potassium more than 4 and magnesium more than 2. Keep a close eye on her renal function. Any further recommendations would be pending her clinical outcome. I have discussed these things with Dr. Sanchez from the hospitalist service. Thank you very much for asking us to participate in the care of this patient. TIME SPENT: More than half of at least 60 plus minutes was in the education and counseling mode, [id number] explaining all of the above and making further recommendations accordingly. [id number]/[facility] #: [id number] JERRY
[2017-09-02] MEDS: Acetaminophen TAB* 325 MG PO SCH ×4 (02:33→20:51)
[2017-09-02 05:37] LABS: BUN/Creatinine Ratio 22.2 (8-20); Calcium 9.1 mg/dL (8.6-10.3); EGFR African American 57.8 (>60); Potassium 4.7 mmol/L (3.5-5.0)
[2017-09-02] MEDS: Aspirin EC Low Dose* 81 MG TAB.EC PO SCH (08:04)
[2017-09-02] MEDS: CMC: Dabigatran CAP(NF) 75 MG CAP PO SCH ×2 (08:05→21:04)
[2017-09-02] MEDS: Digoxin TAB* 0.125 MG PO SCH (08:07)
[2017-09-02] MEDS: DULoxetine DR CAP* 20 MG CAP.DR PO SCH (08:08)
[2017-09-02] MEDS: Furosemide TAB* 20 MG PO SCH (08:09)
[2017-09-02] MEDS: Lisinopril TAB* 5 MG PO SCH (08:09)
[2017-09-02] MEDS: Metoprolol Tartrate TAB* 25 MG PO SCH (08:11)
[2017-09-02] MEDS: Morphine TAB Extended Release (*) 15 MG TAB.ER PO SCH ×2 (08:12→20:52)
[2017-09-02] MEDS: Metoprolol Tartrate IV* 1 MG/ML 5 ML VIAL IV PRN ×2 (08:25→21:28)
[2017-09-02] MEDS ORDERED: Metoprolol Tartrate TAB* 25 MG PO ONE (12:56)
--- NOTE | 2017-09-02 18:14 | PN ---
Subjective Date of Service: 09/02/17 Interval History: Pt feels well. Informed pt and family about new dx of cardiomyopathy and EF 25% Family History: Unchanged from Admission Social History: Unchanged from Admission Past Medical History: Unchanged from Admission Objective Active Medications: Acetaminophen (Tylenol Tab*) 975 mg PO Q6H [facility] Last Admin: 09/02/17 13:42 Dose: 975 mg Al Hydrox/Mg Hydrox/Simethicone (Maalox Plus*) 30 ml PO Q2H PRN PRN Reason: indigestion Last Admin: 08/30/17 09:05 Dose: 30 ml Aspirin (Aspirin Ec Low Dose*) 81 mg PO DAILY [facility] Last Admin: 09/02/17 08:04 Dose: 81 mg Atorvastatin Calcium (Lipitor*) 20 mg PO BEDTIME [facility] Last Admin: 09/01/17 20:11 Dose: 20 mg Cyanocobalamin (Vitamin B12 Inj *) 1,000 mcg IM We@1200 [facility] Last Admin: 08/27/17 12:14 Dose: 1,000 mcg Dabigatran (Pradaxa Cap(Nf)) 75 mg PO BID [facility] Last Admin: 09/02/17 08:05 Dose: 75 mg Digoxin (Lanoxin Tab*) 0.125 mg PO DAILY [facility] Last Admin: 09/02/17 08:07 Dose: 0.125 mg Duloxetine HCl (Cymbalta Cap*) 20 mg PO DAILY [facility] Last Admin: 09/02/17 08:08 Dose: 20 mg Furosemide (Lasix Tab*) 20 mg PO DAILY [facility] Last Admin: 09/02/17 08:09 Dose: 20 mg Lisinopril (Prinivil Tab*) 2.5 mg PO DAILY [facility] Last Admin: 09/02/17 08:09 Dose: 2.5 mg Metoprolol Tartrate (Lopressor Iv*) 5 mg IV Q6H PRN PRN Reason: HEART RATE/PULSE > 120 MM[facility] Last Admin: 09/02/17 08:25 Dose: 5 mg Metoprolol Tartrate (Lopressor Tab*) 50 mg PO Q12HR [facility] Morphine Sulfate (Ms Contin(*)) 15 mg PO Q12H [facility] Last Admin: 09/02/17 08:12 Dose: 15 mg Ondansetron HCl (Zofran Odt Tab*) 4 mg PO Q6H PRN PRN Reason: NAUSEA Last Admin: 09/01/17 08:52 Dose: 4 mg Ondansetron HCl (Zofran Inj*) 4 mg IV Q4H PRN PRN Reason: NAUSEA Last Admin: 08/27/17 20:05 Dose: 4 mg Polyvinyl Alcohol (Polyvinyl Alcohol 1.4% Opth*) 1 drop BOTH EYES Q2H PRN PRN Reason: DRY EYE Last Admin: 08/30/17 09:14 Dose: 1 drop Simethicone (Mylicon Liq*) 20 mg PO BID PRN PRN Reason: INDIGESTION Vital Signs 09/01/17 09/01/17 09/01/17 19:25 20:00 20:13 Temperature 97.9 F Pulse Rate 99 Respiratory 16 14 16 Rate Blood Pressure 154/98 (mmHg) O2 Sat by Pulse 98 Oximetry 09/01/17 09/01/17 09/01/17 21:10 21:23 22:07 Temperature Pulse Rate 49 145 Respiratory 20 20 Rate Blood Pressure 159/99 (mmHg) O2 Sat by Pulse 95 Oximetry 09/01/17 09/02/17 09/02/17 23:37 03:35 07:14 Temperature 97.7 F 97.4 F 97.2 F Pulse Rate 105 48 120 Respiratory 14 16 16 Rate Blood Pressure 150/99 148/89 150/103 (mmHg) O2 Sat by Pulse 96 96 94 Oximetry 09/02/17 09/02/17 09/02/17 07:40 08:07 08:12 Temperature Pulse Rate 96 Respiratory 16 16 Rate Blood Pressure (mmHg) O2 Sat by Pulse Oximetry 09/02/17 09/02/17 09/02/17 10:12 11:14 15:41 Temperature 98.0 F 97.6 F Pulse Rate 123 121 Respiratory 18 20 20 Rate Blood Pressure 148/74 154/116 (mmHg) O2 Sat by Pulse 99 97 Oximetry 09/02/17 16:31 Temperature Pulse Rate Respiratory Rate Blood Pressure 150/106 (mmHg) O2 Sat by Pulse Oximetry Oxygen Devices in Use Now: None Appearance: 77 yo f in nAD, aAOx3 Eyes: No Scleral Icterus, PERRLA Ears/Nose/Mouth/Throat: NL Teeth, Lips, Gums, Mucous Membranes Moist Neck: NL Appearance and Movements; NL JVP, Trachea Midline Respiratory: Symmetrical Chest Expansion and Respiratory Effort, - - crackles at b/l bases Cardiovascular: NL Sounds; No Murmurs; No JVD, - - irregular Abdominal: NL Sounds; No Tenderness; No Distention, No Hepatosplenomegaly Lymphatic: No Cervical Adenopathy Extremities: No Edema, No Clubbing, Cyanosis Skin: No Nodules or Sclerosis, - - left leg ulceration and skin changes -above left lateral malleolus at 8x4 cm Neurological: Alert and Oriented x 3, NL Muscle Strength and Tone Result Diagrams: 08/30/17 05:21 09/02/17 05:14 Additional Lab and Data: Lab Results 08/25/17 08/25/17 08/25/17 Range/Units 15:55 15:55 15:55 WBC 1.6 L (3.5-10.8) 10^3/ul RBC 2.90 L (4.0-5.4) 10^6/ul Hgb 8.6 L (12.0-16.0) g/dl Hct 26 L (35-47) % MCV 88 (80-97) fL MCH 30 (27-31) pg MCHC 34 (31-36) g/dl RDW 16 H (10.5-15) % Plt Count 150 (150-450) 10^3/ul MPV 7 L (7.4-10.4) um3 Neut % (Auto) 64.2 (38-83) % Lymph % (Auto) 20.4 L (25-47) % [place] % (Auto) 13.6 H (1-9) % Eos % (Auto) 0.9 (0-6) % Baso % (Auto) 0.9 (0-2) % Absolute Neuts (auto) 1.0 L (1.5-7.7) 10^3/ul Absolute Lymphs (auto) 0.3 L (1.0-4.8) 10^3/ul Absolute Monos (auto) 0.2 (0-0.8) 10^3/ul Absolute Eos (auto) 0 (0-0.6) 10^3/ul Absolute Basos (auto) 0 (0-0.2) 10^3/ul Absolute Nucleated RBC 0 10^3/ul Nucleated RBC % 0.1 Sodium Pending Potassium Pending Chloride Pending Carbon Dioxide Pending Anion Gap Pending BUN Pending Creatinine Pending Est GFR ( Amer) Pending Est GFR (Non-Af Amer) Pending BUN/Creatinine Ratio Pending Glucose Pending Calcium Pending Magnesium Pending Total Bilirubin Pending AST Pending ALT Pending Alkaline Phosphatase Pending Total Creatine Kinase Pending Troponin I 0.04 H* (<0.04) ng/mL C-Reactive Protein Pending B-Natriuretic Peptide 968 H ( - 100) pg/mL Total Protein Pending Albumin Pending Globulin Pending Albumin/Globulin Ratio Pending TSH Pending Assess/Plan/Problems-Billing Assessment: 77 yo F with h/o chronic a. fib with left leg ulcer x 3 months - Patient Problems (1) Squamous cell carcinoma of lower leg Comment: off antibiotics d/w Dr. Cantor re: further plans of excision. Recommended to see Dr. Cantor in one week and discuss plans of surgery for later(probably 2-4 weeks from now)- family agrees (2) Atrial fibrillation Comment: metoprolol dose was increased up to 50 BID on 08/31/17, still continues to have increased HR with minimal exercise. Asked Dr. Thornton to see pt in consult.Digoxin started Continue AC with pradaxa, but dose adjusted to renal function Echo pending shows EF 25% and as per d/w Dr. 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 Pt also had moderate MR. Spence as d/c'd (3) Volume overload Comment: On admission, her home lasix dose was held as she was volume resuscitated. suspected this is accounting for some of her dyspnea on exertion, in combination with deconditioning, but now pt appears euvolemic and still SOB with increased HR when walking due to cardiomyopathy and a.fib cont incentive spirometry (4) CAD (coronary artery disease) Comment: Continue statin, metoprolol and ASA (5) Pancytopenia Comment: leukopenia and thrombocytopenia resolved Normocytic anemia chronic, dating back to 2014. stool guaiac pending, and iron studies unremarkable. IG G levels low-D/w Dr. Case-appropitate to f/u with Dr. Cortés as outpatient (6) Creatinine elevation Comment: ranging from 0.7 to 1.2 in the past 2 years. cont current dose of Lasix and monitor (7) DM2 (diabetes mellitus, type 2) Comment: holding metformin when in hospital, cont daily BG checks (8) DVT prophylaxis Comment: Pradaxa Status and Disposition: inpatient, planned to d/c to [facility]
[2017-09-02] MEDS: Atorvastatin* 20 MG TAB PO SCH (20:51)
[2017-09-02] MEDS ORDERED: Metoprolol Tartrate TAB* 50 mg PO SCH (21:00)
[2017-09-02] MEDS ORDERED: Metoprolol Tartrate TAB* 25 MG PO SCH (21:00)
[2017-09-03] MEDS: Acetaminophen TAB* 325 MG PO SCH ×3 (03:00→14:32)
[2017-09-03 05:34] LABS: BUN/Creatinine Ratio 25.2 (8-20); Calcium 9.2 mg/dL (8.6-10.3); EGFR Non-African American 52.1 (>60); Potassium 4.2 mmol/L (3.5-5.0)
[2017-09-03] MEDS: DULoxetine DR CAP* 20 MG CAP.DR PO SCH (08:49)
[2017-09-03] MEDS: CMC: Dabigatran CAP(NF) 75 MG CAP PO SCH ×2 (08:49→20:01)
[2017-09-03] MEDS: Digoxin TAB* 0.125 MG PO SCH (08:49)
[2017-09-03] MEDS: Metoprolol Tartrate TAB* 100 MG TAB PO SCH ×2 (08:51→20:01)
[2017-09-03] MEDS: Lisinopril TAB* 5 MG PO SCH (08:52)
[2017-09-03] MEDS: Furosemide TAB* 20 MG PO SCH (08:52)
[2017-09-03] MEDS: Morphine TAB Extended Release (*) 15 MG TAB.ER PO SCH (08:53)
[2017-09-03] MEDS: Aspirin EC Low Dose* 81 MG TAB.EC PO SCH (08:53)
[2017-09-03] MEDS: Cyanocobalamin INJ * 1,000 MCG/ML VIAL 1 ML VIAL IM SCH (13:28)
[2017-09-03] MEDS ORDERED: Morphine ORAL.SOLN 10 mg* 2 MG/ML UDC 5 ml PO PRN (14:40)
--- NOTE | 2017-09-03 15:06 | PN ---
Subjective Date of Service: 09/03/17 Interval History: pt feels well, HR still in 100-160 despite titration of BB Still significant CAPPS Family History: Unchanged from Admission Social History: Unchanged from Admission Past Medical History: Unchanged from Admission Objective Active Medications: Acetaminophen (Tylenol Tab*) 975 mg PO Q6H PRN PRN Reason: PAIN Al Hydrox/Mg Hydrox/Simethicone (Maalox Plus*) 30 ml PO Q2H PRN PRN Reason: indigestion Last Admin: 08/30/17 09:05 Dose: 30 ml Aspirin (Aspirin Ec Low Dose*) 81 mg PO DAILY [facility] Last Admin: 09/03/17 08:53 Dose: 81 mg Atorvastatin Calcium (Lipitor*) 20 mg PO BEDTIME [facility] Last Admin: 09/02/17 20:51 Dose: 20 mg Cyanocobalamin (Vitamin B12 Inj *) 1,000 mcg IM We@1200 [facility] Last Admin: 09/03/17 13:28 Dose: 1,000 mcg Dabigatran (Pradaxa Cap(Nf)) 75 mg PO BID [facility] Last Admin: 09/03/17 08:49 Dose: 75 mg Digoxin (Lanoxin Tab*) 0.125 mg PO DAILY [facility] Last Admin: 09/03/17 08:49 Dose: 0.125 mg Duloxetine HCl (Cymbalta Cap*) 20 mg PO DAILY [facility] Last Admin: 09/03/17 08:49 Dose: 20 mg Furosemide (Lasix Tab*) 20 mg PO DAILY [facility] Last Admin: 09/03/17 08:52 Dose: 20 mg Lisinopril (Prinivil Tab*) 2.5 mg PO DAILY [facility] Last Admin: 09/03/17 08:52 Dose: 2.5 mg Metoprolol Tartrate (Lopressor Iv*) 5 mg IV Q6H PRN PRN Reason: HEART RATE/PULSE > 120 [facility] Last Admin: 09/02/17 21:28 Dose: 5 mg Metoprolol Tartrate (Lopressor Tab*) 100 mg PO Q12HR [facility] Last Admin: 09/03/17 08:51 Dose: 100 mg Morphine Sulfate (Morphine Oral.Soln 10 Mg*) 10 mg PO Q4H PRN PRN Reason: PAIN Ondansetron HCl (Zofran Odt Tab*) 4 mg PO Q6H PRN PRN Reason: NAUSEA Last Admin: 09/01/17 08:52 Dose: 4 mg Ondansetron HCl (Zofran Inj*) 4 mg IV Q4H PRN PRN Reason: NAUSEA Last Admin: 08/27/17 20:05 Dose: 4 mg Polyvinyl Alcohol (Polyvinyl Alcohol 1.4% Opth*) 1 drop BOTH EYES Q2H PRN PRN Reason: DRY EYE Last Admin: 08/30/17 09:14 Dose: 1 drop Simethicone (Mylicon Liq*) 20 mg PO BID PRN PRN Reason: INDIGESTION Vital Signs 09/02/17 09/02/17 09/02/17 15:41 16:31 19:25 Temperature 97.6 F 97.8 F Pulse Rate 121 87 Respiratory 20 20 Rate Blood Pressure 154/116 150/106 151/72 (mmHg) O2 Sat by Pulse 97 96 Oximetry 09/02/17 09/02/17 09/02/17 20:00 20:52 21:20 Temperature Pulse Rate 107 Respiratory 16 20 20 Rate Blood Pressure (mmHg) O2 Sat by Pulse 98 Oximetry 09/02/17 09/02/17 09/02/17 21:26 22:52 23:49 Temperature 97.4 F Pulse Rate 46 Respiratory 16 16 Rate Blood Pressure 160/100 154/94 (mmHg) O2 Sat by Pulse 99 Oximetry 09/03/17 09/03/17 09/03/17 03:53 07:29 08:00 Temperature 97.4 F 97.8 F Pulse Rate 99 145 Respiratory 16 16 18 Rate Blood Pressure 146/106 148/92 (mmHg) O2 Sat by Pulse 96 97 Oximetry 09/03/17 09/03/17 09/03/17 08:49 08:53 10:53 Temperature Pulse Rate 145 Respiratory 16 18 Rate Blood Pressure (mmHg) O2 Sat by Pulse Oximetry 09/03/17 11:04 Temperature 98.3 F Pulse Rate 42 Respiratory 20 Rate Blood Pressure 151/87 (mmHg) O2 Sat by Pulse 97 Oximetry Oxygen Devices in Use Now: None Appearance: 77 yo f in nAD, aAOx3 Eyes: No Scleral Icterus, PERRLA Ears/Nose/Mouth/Throat: NL Teeth, Lips, Gums, Mucous Membranes Moist Neck: NL Appearance and Movements; NL JVP, Trachea Midline Respiratory: Symmetrical Chest Expansion and Respiratory Effort, Clear to Auscultation Cardiovascular: - - irregular Abdominal: NL Sounds; No Tenderness; No Distention, No Hepatosplenomegaly Lymphatic: No Cervical Adenopathy Extremities: No Edema, No Clubbing, Cyanosis Skin: No Nodules or Sclerosis, - - left leg ulcer not examined today Neurological: Alert and Oriented x 3, NL Muscle Strength and Tone Result Diagrams: 08/30/17 05:21 09/03/17 04:46 Additional Lab and Data: Lab Results 08/25/17 08/25/17 08/25/17 Range/Units 15:55 15:55 15:55 WBC 1.6 L (3.5-10.8) 10^3/ul RBC 2.90 L (4.0-5.4) 10^6/ul Hgb 8.6 L (12.0-16.0) g/dl Hct 26 L (35-47) % MCV 88 (80-97) fL MCH 30 (27-31) pg MCHC 34 (31-36) g/dl RDW 16 H (10.5-15) % Plt Count 150 (150-450) 10^3/ul MPV 7 L (7.4-10.4) um3 Neut % (Auto) 64.2 (38-83) % Lymph % (Auto) 20.4 L (25-47) % [place] % (Auto) 13.6 H (1-9) % Eos % (Auto) 0.9 (0-6) % Baso % (Auto) 0.9 (0-2) % Absolute Neuts (auto) 1.0 L (1.5-7.7) 10^3/ul Absolute Lymphs (auto) 0.3 L (1.0-4.8) 10^3/ul Absolute Monos (auto) 0.2 (0-0.8) 10^3/ul Absolute Eos (auto) 0 (0-0.6) 10^3/ul Absolute Basos (auto) 0 (0-0.2) 10^3/ul Absolute Nucleated RBC 0 10^3/ul Nucleated RBC % 0.1 Sodium Pending Potassium Pending Chloride Pending Carbon Dioxide Pending Anion Gap Pending BUN Pending Creatinine Pending Est GFR ( Amer) Pending Est GFR (Non-Af Amer) Pending BUN/Creatinine Ratio Pending Glucose Pending Calcium Pending Magnesium Pending Total Bilirubin Pending AST Pending ALT Pending Alkaline Phosphatase Pending Total Creatine Kinase Pending Troponin I 0.04 H* (<0.04) ng/mL C-Reactive Protein Pending B-Natriuretic Peptide 968 H ( - 100) pg/mL Total Protein Pending Albumin Pending Globulin Pending Albumin/Globulin Ratio Pending TSH Pending Assess/Plan/Problems-Billing Assessment: 77 yo F with h/o chronic a. fib with left leg ulcer x 3 months - Patient Problems (1) Squamous cell carcinoma of lower leg Comment: off antibiotics d/w Dr. Cantor re: further plans of excision. Recommended to see Dr. Cantor in one week and discuss plans of surgery for later(probably 2-4 weeks from now)- family agrees (2) Atrial fibrillation Comment: metoprolol dose was increased up to 100 BID today AM, digoxin started on 08/31/17, still continues to have increased HR with minimal exercise. Spoke w/ Dr. Thornton who is considering cardioversion and will d/w family today Continue AC with pradaxa, but dose adjusted to renal function Echo shows EF 25% and as per d/w Dr. 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 Pt also had moderate MR. Bebe as d/c'd (3) Volume overload Comment: On admission, her home lasix dose was held as she was volume resuscitated. suspected this is accounting for some of her dyspnea on exertion, in combination with deconditioning, but now pt appears euvolemic and still SOB with increased HR when walking due to cardiomyopathy and a.fib cont incentive spirometry (4) CAD (coronary artery disease) Comment: Continue statin, metoprolol and ASA (5) Pancytopenia Comment: leukopenia and thrombocytopenia resolved Normocytic anemia chronic, dating back to 2014. stool guaiac pending, and iron studies unremarkable. IG G levels low-D/w Dr. Case-appropitate to f/u with Dr. Cortés as outpatient (6) Creatinine elevation Comment: ranging from 0.7 to 1.2 in the past 2 years. cont current dose of Lasix and monitor (7) DM2 (diabetes mellitus, type 2) Comment: holding metformin when in hospital, cont daily BG checks (8) DVT prophylaxis Comment: Pradaxa Status and Disposition: inpatient, planned to d/c to [facility]
[2017-09-03] MEDS: Atorvastatin* 20 MG TAB PO SCH (20:01)
[2017-09-04 05:26] LABS: Hematocrit 29 % (35-47); Hemoglobin 9.6 g/dl (12.0-16.0); Mean Corpuscular HGB Conc 33 g/dl (31-36); Mean Corpuscular Hemoglobin 30 pg (27-31); Mean Corpuscular Volume 91 fL (80-97); Mean Platelet Volume 7 um3 (7.4-10.4); Red Blood Count 3.19 10^6/ul (4.0-5.4); Red Cell Distribution Width 17 % (10.5-15); White Blood Count 6.2 10^3/ul (3.5-10.8)
[2017-09-04 05:46] LABS: Calcium 9.2 mg/dL (8.6-10.3); EGFR African American 69.3 (>60); EGFR Non-African American 53.9 (>60); Magnesium 1.5 mg/dL (1.9-2.7)
[2017-09-04] MEDS ORDERED: Lidocaine 2% VISCOUS* 15 ML UDC ONE (08:10)
[2017-09-04] MEDS ORDERED: fentaNYL* 50 MCG/ML 2 ML VIAL (100 MCG VIAL) ONE (08:10)
[2017-09-04] MEDS ORDERED: Naloxone* 0.4 MG/ML 1 ML VIAL ONE (08:10)
[2017-09-04] MEDS ORDERED: Midazolam* 1 MG/ML 5 ML VIAL (5 MG) ONE (08:10)
[2017-09-04] MEDS ORDERED: Flumazenil* 0.1 MG/ML 5 ML MDV ONE (08:10)
--- NOTE | 2017-09-04 08:40 | PN ---
Progress Note - Progress Note Date of Service: 08/29/17 SOAP: Subjective: [] Mrs. Reid is a 77 year old pleasant female who was admitted to the hospital on 08/25/17 for a non-healing ulcer on her left calf. The patient had a biopsy done which returned positive for Squamous Cell Carcinoma. The patient also complained of abdominal pain which resolved today. PAST MEDICAL HISTORY 1. CAD 2. DM2 3. HTN 4. Hyperlipidemia 5. Atrial fibrillation, on Pradaxa 6. GERD 7. Chronic back pain 8. Severe right hip osteoarthritis, status post right total hip in 2014 Allergies Allergy/AdvReac Type Severity Reaction Status Date / Time Sulfa Drugs Allergy Severe Difficulty Verified 08/01/15 08:05 Breathing Hydrocodone Allergy Intermediate Altered Verified 08/25/17 19:47 Mental Status Oxycodone [From Percocet] AdvReac Mild Nausea And Verified 08/27/17 07:17 Vomiting Tramadol AdvReac Mild Nausea Verified 08/27/17 07:16 Dabigatran CAP(NF) [Pradaxa CAP*] 150 mg PO BID 08/05/13 Lisinopril TAB* [Prinivil TAB*] 40 mg PO DAILY 08/05/13 Metoprolol Tartrate TAB* [Lopressor TAB*] 12.5 mg PO BID 08/05/13 Simvastatin TAB(NF) [Zocor(NF)] 40 mg PO BEDTIME 08/05/13 amLODIPine TAB* [Norvasc TAB*] 10 mg PO DAILY 08/05/13 metFORMIN* [Glucophage*] 1,000 mg PO 0800,1700 08/05/13 Cholecalciferol [Vitamin D3] 2,000 unit PO DAILY 07/20/14 Aspirin EC Low Dose* [Ecotrin EC Low Dose*] 81 mg PO DAILY 06/28/15 Dronedarone TAB* [Multaq TAB*] 400 mg PO BID 06/28/15 cloNIDine TAB* [Catapres TAB*] 0.1 mg PO BID 06/28/15 Ondansetron ODT TAB* [Zofran 4 MG Odt TAB*] 4 mg PO Q6H PRN #20 tab.odt MDD 4 Acetaminophen TAB* [Tylenol TAB*] 1,000 mg PO TID PRN 08/25/17 Cyanocobalamin INJ * [Vitamin B12 INJ *] 1 inj IM WEEKLY 08/25/17 Furosemide TAB* [Lasix TAB*] 20 mg PO DAILY 08/25/17 Gabapentin CAP(*) [Neurontin 100 mg CAP(*)] 100 mg PO BEDTIME 08/25/17 Ondansetron TAB* [Zofran 4 MG Tab*] 4 mg PO QID PRN 08/25/17 Polyethylene Glycol 3350* [Miralax*] 17 gm PO DAILY PRN 08/25/17 Objective: [] Vital Signs Temp Pulse Resp BP Pulse Ox 09/04/17 03:50 97.5 F 73 20 164/108 100 09/03/17 23:55 97.3 F 84 16 162/78 100 09/03/17 19:40 97.6 F 133 16 153/86 97 09/03/17 19:29 16 09/03/17 15:48 98.4 F 56 16 156/84 97 09/03/17 11:04 98.3 F 42 20 151/87 97 09/03/17 10:53 18 09/03/17 08:53 16 09/03/17 08:49 145 09/03/17 08:00 18 09/03/17 07:29 97.8 F 145 16 148/92 97 09/03/17 03:53 97.4 F 99 16 146/106 96 09/02/17 23:49 97.4 F 46 16 154/94 99 09/02/17 22:52 16 09/02/17 21:26 160/100 09/02/17 21:20 107 20 98 09/02/17 20:52 20 09/02/17 20:00 16 09/02/17 19:25 97.8 F 87 20 151/72 96 09/02/17 16:31 150/106 09/02/17 15:41 97.6 F 121 20 154/116 97 09/02/17 11:14 98.0 F 123 20 148/74 99 09/02/17 10:12 18 09/02/17 08:12 16 09/02/17 08:07 96 09/02/17 07:40 16 09/02/17 07:14 97.2 F 120 16 150/103 94 09/02/17 03:35 97.4 F 48 16 148/89 96 09/01/17 23:37 97.7 F 105 14 150/99 96 09/01/17 22:07 20 09/01/17 21:23 145 09/01/17 21:10 49 20 159/99 95 09/01/17 20:13 16 09/01/17 20:00 14 09/01/17 19:25 97.9 F 99 16 154/98 98 09/01/17 17:04 97.8 F 75 16 143/92 94 09/01/17 11:38 98.5 F 19 152/88 91 09/01/17 10:50 16 09/01/17 08:50 18 09/01/17 07:33 20 09/01/17 07:22 97.7 F 116 20 155/88 95 09/01/17 02:40 97.7 F 128 16 158/97 96 09/01/17 02:39 96 08/31/17 23:46 97.9 F 75 20 150/88 95 08/31/17 23:03 18 08/31/17 21:03 20 08/31/17 20:00 20 08/31/17 19:43 98.8 F 158 20 147/80 100 08/31/17 15:52 97.4 F 49 16 143/79 94 08/31/17 12:41 143/88 08/31/17 12:07 96.7 F 89 16 168/91 97 08/31/17 11:07 16 08/31/17 09:07 18 08/31/17 08:00 18 08/31/17 07:51 97.9 F 105 18 151/75 96 08/31/17 03:57 97.2 F 124 20 142/85 100 08/31/17 00:08 97.6 F 124 20 147/89 100 08/30/17 23:03 20 08/30/17 21:08 20 08/30/17 21:03 20 08/30/17 20:00 20 08/30/17 19:14 97.7 F 92 18 152/92 100 08/30/17 18:00 97.4 F 55 18 148/90 100 08/30/17 15:57 97.4 F 87 16 146/82 98 08/30/17 12:15 99.1 F 86 16 139/78 100 08/30/17 11:07 16 08/30/17 09:07 16 08/30/17 08:00 16 08/30/17 07:39 99.2 F 73 16 163/81 98 08/30/17 03:33 97.5 F 94 20 136/82 99 08/30/17 00:26 97.5 F 69 20 165/72 100 08/29/17 23:26 18 08/29/17 21:28 18 08/29/17 21:26 18 08/29/17 20:09 97.5 F 68 18 142/74 100 08/29/17 15:48 98.4 F 91 18 94 08/29/17 11:13 97.4 F 82 20 130/57 100 08/29/17 11:01 97.4 F 82 20 130/57 100 08/29/17 10:35 18 08/29/17 08:35 20 08/29/17 08:00 20 08/29/17 07:14 97.4 F 55 20 139/78 100 08/29/17 03:11 98.5 F 98 16 129/83 100 08/28/17 23:35 97.2 F 104 16 145/96 96 08/28/17 22:46 18 08/28/17 20:46 20 08/28/17 20:45 20 08/28/17 19:48 98.4 F 120 20 142/88 99 08/28/17 15:53 96.7 F 106 22 138/71 94 08/28/17 11:29 22 08/28/17 11:12 98.1 F 61 20 153/86 97 08/28/17 10:39 28 08/28/17 10:29 28 08/28/17 09:45 22 08/28/17 09:39 22 08/28/17 07:55 99.0 F 63 18 151/81 94 08/28/17 07:50 22 08/28/17 03:50 97.4 F 99 24 145/64 100 08/28/17 03:49 91 100 08/27/17 23:58 98.1 F 32 28 150/85 98 08/27/17 21:18 20 08/27/17 21:07 24 08/27/17 20:35 98.5 F 86 24 163/82 97 08/27/17 20:30 26 08/27/17 20:18 26 08/27/17 19:15 97.9 F 160 28 161/88 94 08/27/17 16:47 22 08/27/17 15:47 18 08/27/17 15:20 98.9 F 30 18 152/84 94 08/27/17 11:52 99.4 F 79 16 149/78 94 08/27/17 11:30 19 08/27/17 10:30 20 08/27/17 07:54 16 08/27/17 07:32 98.2 F 16 148/77 95 08/27/17 05:37 17 08/27/17 04:37 20 08/27/17 03:34 97.8 F 101 20 145/85 96 08/26/17 23:27 98.4 F 134 20 150/93 97 08/26/17 22:28 18 08/26/17 20:28 18 08/26/17 20:18 18 08/26/17 20:00 18 08/26/17 19:31 98.3 F 47 20 152/83 98 08/26/17 19:18 20 08/26/17 13:48 18 08/26/17 12:48 18 08/26/17 11:29 97.4 F 72 20 142/81 98 08/26/17 11:27 22 08/26/17 10:27 20 08/26/17 09:51 18 08/26/17 08:51 18 08/26/17 08:00 18 08/26/17 07:43 97.8 F 50 16 134/71 97 08/26/17 03:40 90 08/26/17 03:38 98.3 F 56 16 121/65 97 08/26/17 03:30 20 08/26/17 02:30 20 08/25/17 23:47 66 08/25/17 23:46 98.5 F 45 16 119/54 97 08/25/17 22:54 20 08/25/17 22:08 20 08/25/17 21:54 20 08/25/17 20:49 98.9 F 76 16 113/47 99 08/25/17 20:08 20 08/25/17 20:00 20 08/25/17 18:14 98.8 F 63 20 136/66 98 08/25/17 17:33 81 17 120/82 96 08/25/17 17:26 16 08/25/17 17:00 116 20 97 08/25/17 16:00 72 18 98/57 99 08/25/17 15:24 47 18 99 08/25/17 14:54 98.3 F 61 16 77/36 100 Document 08/29/17 03:11 [id number] (Rec: 08/29/17 04:21 [id number]) Vital Signs-Automatic Capture Monitor Facialist Monitor Facialist Fabiano Mina Temperature Temperature 98.5 F Temperature Source Temporal Artery Scan Heart/Pulse Rate Pulse Rate 98 Respirations Respiratory Rate 16 Blood Pressure Blood Pressure (mmHg) 129/83 Blood Pressure Mean (mmHg) 95 Oxygen Saturation O2 Sat by Pulse Oximetry 100 Patient on Room Air No Document 08/29/17 07:14 [id number] (Rec: 08/29/17 08:00 [id number]) Vital Signs-Automatic Capture Monitor Facialist Monitor Facialist Chely Campbell Temperature Temperature 97.4 F Temperature Source Oral Heart/Pulse Rate Pulse Rate 55 Respirations Respiratory Rate 20 Blood Pressure Blood Pressure (mmHg) 139/78 Blood Pressure Mean (mmHg) 92 Oxygen Saturation O2 Sat by Pulse Oximetry 100 Patient on Room Air No Document 08/29/17 11:01 [id number] (Rec: 08/29/17 15:15 [id number]) Vital Signs-Automatic Capture Monitor Facialist Monitor Facialist Chely Campbell Temperature Temperature 97.4 F Temperature Source Oral Heart/Pulse Rate Pulse Rate 82 Respirations Respiratory Rate 20 Blood Pressure Blood Pressure (mmHg) 130/57 Blood Pressure Mean (mmHg) 74 Oxygen Saturation O2 Sat by Pulse Oximetry 100 Patient on Room Air No Document 08/29/17 15:48 [id number] (Rec: 08/29/17 21:15 [id number]) Vital Signs-Automatic Capture Monitor Facialist Monitor Facialist Tera Brown Temperature Temperature 98.4 F Temperature Source Axillary Heart/Pulse Rate Pulse Rate 91 Respirations Respiratory Rate 18 Blood Pressure Blood Pressure (mmHg) 142/74 Blood Pressure Mean (mmHg) 102 Oxygen Saturation O2 Sat by Pulse Oximetry 94 Patient on Room Air Yes Document 08/29/17 20:09 [id number] (Rec: 08/29/17 21:15 [id number]) Vital Signs-Automatic Capture Monitor Facialist Monitor Facialist Tera Brown Temperature Temperature 98.4 F Temperature Source Axillary Heart/Pulse Rate Pulse Rate 91 Respirations Respiratory Rate 18 Blood Pressure Blood Pressure (mmHg) 142/74 Blood Pressure Mean (mmHg) 102 Oxygen Saturation O2 Sat by Pulse Oximetry 94 Patient on Room Air Yes Labs 08/28/17 08/28/17 08/28/17 05:08 05:08 05:08 WBC 6.4 RBC 3.01 L Hgb 8.7 L Hct 26 L MCV 87 MCH 29 MCHC 33 RDW 17 H Plt Count 157 MPV 7 L Neut % (Auto) 78.4 Lymph % (Auto) 12.8 L [place] % (Auto) 8.5 Eos % (Auto) 0 Baso % (Auto) 0.3 Absolute Neuts (auto) 5.0 Absolute Lymphs (auto) 0.8 L Absolute Monos (auto) 0.5 Absolute Eos (auto) 0 Absolute Basos (auto) 0 Absolute Nucleated RBC 0 Nucleated RBC % 0 INR (Anticoag Therapy) APTT Sodium 135 Potassium 4.1 Chloride 106 Carbon Dioxide 21 L Anion Gap 8 BUN 9 Creatinine 0.73 Est GFR ( Amer) 99.7 Est GFR (Non-Af Amer) 77.5 BUN/Creatinine Ratio 12.3 Glucose 160 H Lactic Acid 0.9 Calcium 7.0 L Phosphorus 2.2 L Magnesium 1.4 L Iron TIBC % Saturation Unsat Iron Binding Total Bilirubin 0.40 AST 20 ALT 17 Alkaline Phosphatase 27 L Total Creatine Kinase Troponin I C-Reactive Protein B-Natriuretic Peptide Total Protein 5.7 L Albumin 3.0 L Globulin 2.7 Albumin/Globulin Ratio 1.1 Lipase 18 TSH Urine Color Urine Appearance Urine pH Ur Specific [place] Urine Protein Urine Ketones Urine Blood Urine Nitrate Urine Bilirubin Urine Urobilinogen Ur Leukocyte Esterase Ur Random Creatinine Ur Random Sodium Ur Random Urea Nitrogn Urine Glucose Random Vancomycin IgG IgA IgM 08/29/17 08/29/17 08/30/17 05:13 05:13 05:21 WBC 5.0 5.2 RBC 2.78 L 2.87 L Hgb 8.2 L 8.5 L Hct 24 L 25 L MCV 88 88 MCH 30 30 MCHC 34 34 RDW 17 H 16 H Plt Count 168 227 MPV 8 7 L Neut % (Auto) 69.6 75.0 Lymph % (Auto) 20.6 L 17.2 L [place] % (Auto) 9.1 H 6.8 Eos % (Auto) 0.2 0.2 Baso % (Auto) 0.5 0.8 Absolute Neuts (auto) 3.4 3.9 Absolute Lymphs (auto) 1.0 0.9 L Absolute Monos (auto) 0.4 0.4 Absolute Eos (auto) 0 0 Absolute Basos (auto) 0 0 Absolute Nucleated RBC 0 0 Nucleated RBC % 0 0 INR (Anticoag Therapy) APTT Sodium 135 Potassium 3.8 Chloride 106 Carbon Dioxide 23 Anion Gap 6 BUN 13 Creatinine 0.89 Est GFR ( Amer) 79.3 Est GFR (Non-Af Amer) 61.7 BUN/Creatinine Ratio 14.6 Glucose 170 H Lactic Acid Calcium 7.5 L Phosphorus 1.9 L Magnesium 2.0 Iron TIBC % Saturation Unsat Iron Binding Total Bilirubin AST ALT Alkaline Phosphatase Total Creatine Kinase Troponin I C-Reactive Protein B-Natriuretic Peptide Total Protein Albumin Globulin Albumin/Globulin Ratio Lipase TSH Urine Color Urine Appearance Urine pH Ur Specific [place] Urine Protein Urine Ketones Urine Blood Urine Nitrate Urine Bilirubin Urine Urobilinogen Ur Leukocyte Esterase Ur Random Creatinine Ur Random Sodium Ur Random Urea Nitrogn Urine Glucose Random Vancomycin IgG IgA IgM Physical Exam: Peripheral: There are 4 ulcers on the lateral L calf: eschar 2.4x2.1 cm star shaped about 6x4 cm 2 ulcers approximately 1cm-1.5cm in diameter. Lower extremities are warm. Pulses are 2+ in the lower extremities. There is no edema or hair loss. Assessment: [] Ulcer biopsy returned positive for squamous cell carcinoma Plan: [] Xeroform dressing was changed on the ulcer. Patient is scheduled for a wide excision biopsy next week.
--- NOTE | 2017-09-04 11:08 | CARD ---
CC: Hospitalist Service; Dr. Thornton; Dr. Taylor PROCEDURE REPORT: DATE OF PROCEDURE: 09/04/17 PROCEDURE: Direct current cardioversion, ERIKA guided. HISTORY: The patient is a 77-year-old female patient with history of atrial fibrillation and sympto matic tachycardia, not well controlled by rate-limiting agents. She was further referred for a hurtado sesophageal echo-guided cardioversion. She has been maintained on Pradaxa therapeutically for more t maynard a year. A ERIKA was performed earlier today showed the patient to have reduced left ventricular s ystolic function with EF of 25%, smoke in the left atrium and in the left atrial appendage without o bvious evidence of clots or thrombus. DESCRIPTION OF PROCEDURE: After informed written consent had been obtained and with continuous bloo d pressure, pulse oximeter, and heart rate monitoring, and after the patient received a total dose o f Versed 4 mg intravenously and 50 mcg of fentanyl intravenously, 150 synchronized joules were deliv ered once and converted the patient successfully into normal sinus rhythm. There were no complicati ons and the patient tolerated the procedure very well. A followup EKG documented the patient to be in normal sinus rhythm. CONCLUSION: Successful direct current cardioversion for atrial fibrillation. There were no complica tions. [id number]/[facility] #: [id number]
--- NOTE | 2017-09-04 11:11 | TEE ---
Patient: DAYANA SOTOMAYOR [facility] Rec#: [id number] : 1940 Date: 09/04/2017 Age: 77y Height: 157.5 cm / 62.0 in Weight: 58.5 kg / 128.9 lbs Sex: F BSA: 1.6 Room#: [facility] Admit Date#: 08/25/2017 Type: Inpatient Referring: Janine Sanchez MD Performing: Cristin Thornton MD Reading: Cristin Thornton MD Pecan Gatherer: Patt Ponce RN RDCS Nurse: Hailey Jules RN CC: Kvng ADAMES,Navya Transesophageal Echocardiogram Indication: Atrila fibrillation BP: 164/108 HR: 129 Rhythm: A-Fib Findings History: CAD, A. fib, HTN, HLD, DM, GERD Technical Comments: The study quality is good. Completed at 0935. Left Ventricle: The left ventricular chamber size is normal. There is global hypokinesis of the left ventricle with minor regional variation. There is severely decreased left ventricular systolic function. The estimated ejection fraction is 25-30%. The assessment of diastolic function is non-diagnostic. Left Atrium: The left atrium is severely dilated. Spontaneous echo contrast is present in the left atrium cavity and appendage. No thrombus is visualized within the left atrium. There is no thrombus visualized in the left atrial appendage. Right Ventricle: The right ventricular cavity size is normal. The right ventricular global systolic function is moderately reduced. Right Atrium: The right atrium is mildly dilated. The bubble study is negative. A patent foramen ovale is not demonstrated with color Doppler and agitated contrast. Aortic Valve: The aortic valve is trileaflet. The aortic valve leaflets are mildly thickened. There is aortic annular calcification. There is a trace of aortic regurgitation. There is mild aortic stenosis. Mitral Valve: Moderate mitral annular calcification present. The mitral valve leaflets are mildly thickened. There is mild to moderate mitral regurgitation. There is no evidence of mitral stenosis. Tricuspid Valve: The tricuspid valve leaflets are normal. There is mild tricuspid regurgitation. There is no tricuspid stenosis. Pulmonic Valve: The pulmonic valve structure is not well visualized. There is no evidence of pulmonic regurgitation. There is no pulmonic stenosis. Pericardium: There is no significant pericardial effusion. Aorta: There is no dilatation of the ascending aorta. There is no dilation of the aortic root.There is mild to moderate atherosclerotic plaque seen in the aorta. Pulmonary Artery: The main pulmonary artery appears normal. Venous: The inferior vena cava appears normal. The pulmonary veins appear normal. 2 of 4 pulmonary veins were visualized. The superior vena cava appears normal. ERIKA Procedures: All standard views were attempted within the limitations of patient tolerance and safety. History and physical as well as labs were reviewed. The patient was in a fasting state. Risks and benefits of the procedure, including alternatives, were discussed and written informed consent was obtained. The patient and/or their health care player services representative expressed understanding of the procedure, risks and benefits. Baseline and continuous monitoring of blood pressure, heart rate, pulse oximetry and heart rhythm was performed throughout the procedure. The appropriate time-out procedure was performed as per [facility] protocol. The patient was placed in the left lateral decubitus position. The patient's posterior pharynx was anesthetized with 20ml of 2% viscous lidocaine. The patient received IV Midazolam with a total dose of4 mg. The patient received IV Fentanyl with a total dose of50 mcg. An oral bite block was inserted for protection of oral dentition. The multiplane transesophageal echocardiogram probe was inserted through the posterior oropharynx and advanced into the esophagus without difficulty. Multiple 2D images were obtained of the heart and its related structures. Color flow Doppler was used for evaluation. Spectral Doppler was also used. The atrial septum was interrogated with color flow Doppler. At the conclusion of the procedure the probe was removed with continuous suction without complications. The patient tolerated the procedure with no apparent complications. Contrast: Normal saline was used as contrast for the bubble study. Image 44. Conclusions The left ventricular chamber size is normal. There is severely decreased left ventricular systolic function. The estimated ejection fraction is 25-30%. The left atrium is severely dilated. Spontaneous echo contrast is present in the left atrium cavity and appendage. No thrombus is visualized within the left atrium. There is no thrombus visualized in the left atrial appendage. The bubble study is negative. A patent foramen ovale is not demonstrated with color Doppler and agitated contrast. There is a trace of aortic regurgitation. There is mild aortic stenosis. There is mild to moderate mitral regurgitation. There is mild tricuspid regurgitation. Measurements Name Value Normal Range Aortic Annulus 1.9 cm (1.4 - 2.6) Ao root diameter (2D) 2.4 cm (2.1 - 3.5) Ascending Ao 2.8 cm (2.1 - 3.4) Name Value Normal Range MV E-wave Vmax 0.88 m/sec - MV deceleration time 85.8 msec -
[2017-09-04] MEDS: Aspirin EC Low Dose* 81 MG TAB.EC PO SCH (11:24)
[2017-09-04] MEDS: CMC: Dabigatran CAP(NF) 75 MG CAP PO SCH (11:24)
[2017-09-04] MEDS: Furosemide TAB* 20 MG PO SCH (11:24)
[2017-09-04] MEDS: Lisinopril TAB* 5 MG PO SCH (11:24)
[2017-09-04] MEDS: DULoxetine DR CAP* 20 MG CAP.DR PO SCH (11:24)
[2017-09-04] MEDS: Magnesium Oxide TAB* 400 MG PO SCH (11:25)
[2017-09-04] MEDS: Metoprolol Tartrate TAB* 100 MG TAB PO SCH (11:31)
[2017-09-04] MEDS: Digoxin TAB* 0.125 MG PO SCH (11:31)
[2017-09-04] MEDS ORDERED: Nitroglycerin 2% OINT* 1 GM PAK TOPICAL ONE (11:58)
[2017-09-04] MEDS: cloNIDine TAB* 0.1 MG PO SCH ×2 (12:19→20:03)
[2017-09-04] MEDS: amLODIPine TAB* 5 MG PO SCH (14:16)
--- NOTE | 2017-09-04 16:02 | PN ---
Subjective Date of Service: 09/04/17 Interval History: Pt is seen sleeping post cardioversion. Ate a big lunch as per son in the room. did not wake pt for eval Family History: Unchanged from Admission Social History: Unchanged from Admission Past Medical History: Unchanged from Admission Objective Active Medications: Acetaminophen (Tylenol Tab*) 975 mg PO Q6H PRN PRN Reason: PAIN Al Hydrox/Mg Hydrox/Simethicone (Maalox Plus*) 30 ml PO Q2H PRN PRN Reason: indigestion Last Admin: 08/30/17 09:05 Dose: 30 ml Amlodipine Besylate (Norvasc Tab*) 10 mg PO DAILY [facility] Last Admin: 09/04/17 14:16 Dose: 10 mg Aspirin (Aspirin Ec Low Dose*) 81 mg PO DAILY [facility] Last Admin: 09/04/17 11:24 Dose: 81 mg Atorvastatin Calcium (Lipitor*) 20 mg PO BEDTIME [facility] Last Admin: 09/03/17 20:01 Dose: 20 mg Clonidine HCl (Catapres Tab*) 0.1 mg PO BID [facility] Last Admin: 09/04/17 12:19 Dose: 0.1 mg Cyanocobalamin (Vitamin B12 Inj *) 1,000 mcg IM We@1200 [facility] Last Admin: 09/03/17 13:28 Dose: 1,000 mcg Dabigatran (Pradaxa Cap(Nf)) 75 mg PO BID [facility] Last Admin: 09/04/17 11:24 Dose: 75 mg Duloxetine HCl (Cymbalta Cap*) 20 mg PO DAILY [facility] Last Admin: 09/04/17 11:24 Dose: 20 mg Furosemide (Lasix Tab*) 20 mg PO DAILY [facility] Last Admin: 09/04/17 11:24 Dose: 20 mg Lisinopril (Prinivil Tab*) 2.5 mg PO DAILY [facility] Last Admin: 09/04/17 11:24 Dose: 2.5 mg Magnesium Oxide (Magox 400 Tab*) 800 mg PO DAILY [facility] Last Admin: 09/04/17 11:25 Dose: 800 mg Metoprolol Tartrate (Lopressor Iv*) 5 mg IV Q6H PRN PRN Reason: HEART RATE/PULSE > 120 [facility] Last Admin: 09/02/17 21:28 Dose: 5 mg Metoprolol Tartrate (Lopressor Tab*) 25 mg PO BID [facility] Morphine Sulfate (Morphine Oral.Soln 10 Mg*) 10 mg PO Q4H PRN PRN Reason: PAIN Ondansetron HCl (Zofran Odt Tab*) 4 mg PO Q6H PRN PRN Reason: NAUSEA Last Admin: 09/01/17 08:52 Dose: 4 mg Ondansetron HCl (Zofran Inj*) 4 mg IV Q4H PRN PRN Reason: NAUSEA Last Admin: 08/27/17 20:05 Dose: 4 mg Pharmacy Profile Note (Nitro Patch/Oint Remove*) 1 note PATCH OFF 1800 ONE Stop: 09/04/17 18:01 Polyvinyl Alcohol (Polyvinyl Alcohol 1.4% Opth*) 1 drop BOTH EYES Q2H PRN PRN Reason: DRY EYE Last Admin: 08/30/17 09:14 Dose: 1 drop Simethicone (Mylicon Liq*) 20 mg PO BID PRN PRN Reason: INDIGESTION Vital Signs 09/03/17 09/03/17 09/03/17 19:29 19:40 23:55 Temperature 97.6 F 97.3 F Pulse Rate 133 84 Respiratory 16 16 16 Rate Blood Pressure 153/86 162/78 (mmHg) O2 Sat by Pulse 97 100 Oximetry 09/04/17 09/04/17 09/04/17 03:50 08:00 10:10 Temperature 97.5 F 97.3 F Pulse Rate 73 56 Respiratory 20 16 20 Rate Blood Pressure 164/108 187/87 (mmHg) O2 Sat by Pulse 100 98 Oximetry 09/04/17 11:26 Temperature 97.3 F Pulse Rate 57 Respiratory 16 Rate Blood Pressure 187/82 (mmHg) O2 Sat by Pulse 100 Oximetry Oxygen Devices in Use Now: None Appearance: 77 yo F in nAD, sleeping Eyes: No Scleral Icterus, PERRLA Ears/Nose/Mouth/Throat: NL Teeth, Lips, Gums, Mucous Membranes Moist Neck: NL Appearance and Movements; NL JVP, Trachea Midline Respiratory: Symmetrical Chest Expansion and Respiratory Effort, Clear to Auscultation Cardiovascular: NL Sounds; No Murmurs; No JVD Abdominal: NL Sounds; No Tenderness; No Distention Lymphatic: No Cervical Adenopathy Extremities: No Edema, No Clubbing, Cyanosis Skin: No Nodules or Sclerosis, - - left leg ulcer not uncovered today Result Diagrams: 09/04/17 05:06 09/04/17 05:06 Additional Lab and Data: Lab Results 08/25/17 08/25/17 08/25/17 Range/Units 15:55 15:55 15:55 WBC 1.6 L (3.5-10.8) 10^3/ul RBC 2.90 L (4.0-5.4) 10^6/ul Hgb 8.6 L (12.0-16.0) g/dl Hct 26 L (35-47) % MCV 88 (80-97) fL MCH 30 (27-31) pg MCHC 34 (31-36) g/dl RDW 16 H (10.5-15) % Plt Count 150 (150-450) 10^3/ul MPV 7 L (7.4-10.4) um3 Neut % (Auto) 64.2 (38-83) % Lymph % (Auto) 20.4 L (25-47) % [place] % (Auto) 13.6 H (1-9) % Eos % (Auto) 0.9 (0-6) % Baso % (Auto) 0.9 (0-2) % Absolute Neuts (auto) 1.0 L (1.5-7.7) 10^3/ul Absolute Lymphs (auto) 0.3 L (1.0-4.8) 10^3/ul Absolute Monos (auto) 0.2 (0-0.8) 10^3/ul Absolute Eos (auto) 0 (0-0.6) 10^3/ul Absolute Basos (auto) 0 (0-0.2) 10^3/ul Absolute Nucleated RBC 0 10^3/ul Nucleated RBC % 0.1 Sodium Pending Potassium Pending Chloride Pending Carbon Dioxide Pending Anion Gap Pending BUN Pending Creatinine Pending Est GFR ( Amer) Pending Est GFR (Non-Af Amer) Pending BUN/Creatinine Ratio Pending Glucose Pending Calcium Pending Magnesium Pending Total Bilirubin Pending AST Pending ALT Pending Alkaline Phosphatase Pending Total Creatine Kinase Pending Troponin I 0.04 H* (<0.04) ng/mL C-Reactive Protein Pending B-Natriuretic Peptide 968 H ( - 100) pg/mL Total Protein Pending Albumin Pending Globulin Pending Albumin/Globulin Ratio Pending TSH Pending Assess/Plan/Problems-Billing Assessment: 77 yo F with h/o chronic a. fib with left leg ulcer x 3 months - Patient Problems (1) Squamous cell carcinoma of lower leg Comment: off antibiotics d/w Dr. Cantor re: further plans of excision. Recommended to see Dr. Cantor in one week and discuss plans of surgery for later(probably 2-4 weeks from now)- family agrees (2) Atrial fibrillation Comment: s/p cardioversion today. In sinus scarlett now. As per Dr. Thornton, digoxin was stopped and lopressor dose lowered due to bradycardia. Pt was also started on Amiodarone Continue AC with pradaxa, now dose will be increase back to 150 mg BID Echo shows EF 25% and as per d/w Dr. 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 Pt also had moderate MR. Spence as d/c'd (3) Volume overload Comment: On admission, her home lasix dose was held as she was volume resuscitated. suspected this is accounting for some of her dyspnea on exertion, in combination with deconditioning, but now pt appears euvolemic (4) CAD (coronary artery disease) Comment: Continue statin, metoprolol and ASA (5) Pancytopenia Comment: leukopenia and thrombocytopenia resolved Normocytic anemia chronic, dating back to 2014. stool guaiac pending, and iron studies unremarkable. IG G levels low-D/w Dr. Case-appropitate to f/u with Dr. Cortés as outpatient (6) Creatinine elevation Comment: ranging from 0.7 to 1.2 in the past 2 years. cont current dose of Lasix and monitor (7) DM2 (diabetes mellitus, type 2) Comment: holding metformin when in hospital, cont daily BG checks (8) HTN (hypertension) Comment: Uncontroled after cardioversion, suspect her EF improved. Restart clonidine, norvasc (9) DVT prophylaxis Comment: Pradaxa Status and Disposition: inpatient, planned to d/c to [facility]
[2017-09-04] MEDS ORDERED: Nitro Patch/OINT Remove PATCH OFF ONE (18:00)
[2017-09-04] MEDS: Metoprolol Tartrate TAB* 25 MG PO SCH (20:03)
[2017-09-04] MEDS: Atorvastatin* 20 MG TAB PO SCH (20:03)
[2017-09-04] MEDS: Acetaminophen TAB* 325 MG PO PRN (20:04)
[2017-09-04] MEDS: CMCS:Dabigatran CAP(NF) 150 MG CAP PO SCH (20:04)
[2017-09-05 05:57] LABS: Calcium 8.9 mg/dL (8.6-10.3); EGFR African American 77.3 (>60); EGFR Non-African American 60.1 (>60); Magnesium 1.9 mg/dL (1.9-2.7); Potassium 4.2 mmol/L (3.5-5.0)
[2017-09-05] MEDS ORDERED: Lisinopril TAB* 5 MG PO SCH (07:46)
[2017-09-05] MEDS ORDERED: cloNIDine TAB* 0.1 MG PO SCH (07:46)
[2017-09-05] MEDS: Acetaminophen TAB* 325 MG PO PRN (08:49)
[2017-09-05] MEDS: Aspirin EC Low Dose* 81 MG TAB.EC PO SCH (08:49)
[2017-09-05] MEDS: Metoprolol Tartrate TAB* 25 MG PO SCH (08:49)
[2017-09-05] MEDS: DULoxetine DR CAP* 20 MG CAP.DR PO SCH (08:49)
[2017-09-05] MEDS: Magnesium Oxide TAB* 400 MG PO SCH (08:49)
[2017-09-05] MEDS: CMCS:Dabigatran CAP(NF) 150 MG CAP PO SCH (08:49)
[2017-09-05] MEDS: Furosemide TAB* 20 MG PO SCH (08:49)
[2017-09-05] MEDS: amLODIPine TAB* 5 MG PO SCH (08:49)
[2017-09-05 10:38] VITALS: BP 173/79
--- NOTE | 2017-09-05 14:49 | DS ---
CC: NAVEEN Badillo; Dr. Taylor; Dr. Thornton; Dr. Braga; Dr. Cantor, Plastic Surgery; Dr. Mclain * DISCHARGE SUMMARY: DATE OF ADMISSION: 08/25/17 DATE OF DISCHARGE: 09/05/17 PRIMARY CARE PROVIDER: NAVEEN Badillo DISCHARGE DIAGNOSES: 1. Symptomatic atrial fibrillation with rapid ventricular response. 2. Severe pain due to squamous cell carcinoma of the skin on the left distal leg. 3. Normocytic anemia, chronic. 4. An episode of fluid overload during the hospital stay, most likely due to intravenous fluid treatment and intravenous antibiotics. 5. Uncontrolled hypertension. SECONDARY DIAGNOSES: 1. History of paroxysmal atrial fibrillation during the hospital stay. 2. History of coronary artery disease. 3. Diabetes, type 2. 4. Hypertension. 5. Dyslipidemia. 6. Gastroesophageal reflux disease. 7. Chronic back pain. 8. History of right hip osteoarthritis, status post right total hip replacement in 2014. MEDICATIONS: The patient is being discharged to [facility] for rehab and her medications include: 1. Acetaminophen 1000 mg 3 times a day p.r.n. 2. Maalox 30 mL every 2 hours p.r.n. 3. Artificial tears 1 drop to both eyes every 2 hours p.r.n. 4. Aspirin 81 mg daily. 5. Vitamin D3 2000 units daily. 6. Vitamin B12 1000 mcg weekly. 7. Cymbalta 20 mg daily. 8. Pradaxa 150 mg b.i.d. 9. Furosemide 20 mg daily. 10. Neurontin 100 mg at bedtime. 11. Lisinopril 5 mg daily. 12. Mag-Ox 800 mg daily. 13. Metoprolol tartrate 25 mg b.i.d. 14. Morphine oral solution 10 mg p.o. every 4 hours p.r.n. pain. 15. MiraLAX 17 g daily. 16. Zocor 40 mg at bedtime. 17. Amlodipine 10 mg daily. 18. Clonidine 0.2 mg b.i.d. 19. Metformin 1000 mg b.i.d. FOLLOWUP INSTRUCTIONS: At discharge, the patient recommended to follow up with Dr. Taylor in 2 weeks as already scheduled by family. The patient is also recommended to follow with Dr. Cantor on 09/10/17 at 4: 15 p.m. to establish care in regards to left leg skin cancer. CONSULTATIONS DURING THE HOSPITAL STAY: Included: 1. Dr. Braga, surgical team, for left leg ulcer. 2. Dr. Hall, combine mechanic, to assess vascular status of the patient's left lower extremity. 3. Dr. Mclain, Infectious Diseases, to rule out infection and ulcer of the left lower extremity. 4. Dr. Thornton, Cardiology, for atrial fibrillation with rapid ventricular response. PROCEDURES DURING THE HOSPITAL STAY: Included skin biopsy of the left leg ulcer obtained on 08/27/17 with the biopsy showing superficially invasive well differentiated squamous cell carcinoma arising from hypertrophic actinic keratosis. Lesion extends to the area of the inked margin." ERIKA cardioversion was performed on 09/04/[address] Thornton. It was successful and the patient continued to be in sinus rhythm prior to discharge. LABORATORY DATA AND STUDIES PERFORMED DURING THE HOSPITAL STAY: Included: Transesophageal echocardiogram obtained on 09/04/17 showed the left ventricular chamber size normal with severely decreased left ventricular systolic function with EF of 25% to 50%. Spontaneous echo contrast was present in the left atrium atrial appendage. No thrombus was visualized within the left atrium. There was no thrombus visualized in the left atrial appendage. Doppler study is negative. A patent foramen ovale is not demonstrated. There was mild aortic stenosis, mild-to- moderate mitral regurgitation, trace aortic regurgitation, and mild tricuspid regurgitation. On 09/01/17, a transthoracic echocardiogram was performed, which showed EF of 20 % to 25% with mild concentric LVH and moderate mitral regurgitation. Most recent lab work obtained on 09/05/17 showed sodium of 135, potassium 4.2, chloride 100, carbon dioxide 30, BUN 20, creatinine 0.91, magnesium of 1.9. On 09/04/17, white blood cell count of 6.2, hemoglobin 9.6, hematocrit 29, and platelets of 399. The patient's iron level is 68, TIBC of 321, percent iron saturation 21, unsaturated iron binding 252. TSH obtained on admission was 0.42. C-reactive protein on admission was 13.7. Microbiology test showed blood cultures obtained on admission were unremarkable and negative to date. On 08/28/17, IgG level was 742, IgA was 81, and IgM was 94. HOSPITALIZATION COURSE: Shelbie Reid is a 77-year-old female with history of paroxysmal atrial fibrillation, who presented to the hospital complaining of 3 weeks of feeling unwell, dyspnea on exertion, and feeling "run down." Initially, it was all thought to be related to a nonhealing ulcer on her left leg. The patient in fact was sent from Dr. Mclain's office when she was evaluated for possibility of infection of the ulcer of the left leg. At that point, she was noted to have increased heart rate and was hypotensive. She was sent to the ED for further evaluation. She was admitted initially with suspicion of possibly sepsis due to left leg ulcer infection. The patient was noted to be in atrial fibrillation throughout her hospital stay. Initially, the hospitalization was concentrating on the ulcer of the left leg. The patient had a biopsy obtained by Dr. Braga's team from Surgery that resulted on 08/29/17, it showed squamous cell carcinoma. Throughout the patient's hospital stay, she was noted to be in atrial fibrillation that continues to persist despite her being on paroxysmal atrial fibrillation in the past. The patient's initial blood pressure renate once the patient was placed on intravenous fluid resuscitation. It renate to the point that she actually needed to receive a dose of IV Lasix during hospital stay for an episode of fluid overload. It became apparent that despite the patient being euvolemic, she continues to be very short of breath with exertion. Her heart rate would go from one teens to 160 when ambulating and still in AFib. At that point, a transthoracic echocardiogram was performed, which showed when the patient is in AFib, her EF is 25%. Dr. Thornton saw the patient in consultation and after 2 days of attempting to control the patient's heart rate with titrating the beta zara, the cardioversion was performed on 09/04/17. The cardioversion was successful. The patient remained in sinus rhythm. In fact, prior to the patient's cardioversion, Multaq was stopped. After cardioversion, the patient was placed on amiodarone 200 mg daily. Remaining medications were adjusted. Please note that once the patient regained normal sinus rhythm, the patient's blood pressures became very elevated and her clonidine needed to be increased to double the dose by the time of discharge. She is being discharged with systolic pressures in the 170s, but her clonidine was just increased 2 hours prior to that from 0.1 mg twice a day to 0.2 mg twice a day. I am not going to titrate her blood pressure medications for the time being as she is going to be discharged to rehab facility at [facility] for further treatment. In regards to the patient's left leg squamous cell cancer, I discussed the case with Dr. Cantor, who will see the patient in plastic surgery evaluation on for initial visit. The patient also needs to see Dr. Taylor and the family already scheduled an appointment in a week and a half for clearance of planned surgery of the left leg cancer excision. By the time of discharge, the patient is on room air, feels comfortable, ambulates without dyspnea unlike she did previously when she was in atrial fibrillation. Once again, she is being discharged to rehab at [facility]. PHYSICAL EXAMINATION: At the time of discharge, blood pressure of 173/79, heart rate of 67 and regular, respiratory rate 18, oxygen saturation 96% on room air, temperature of 97.6. General: This is a very pleasant 77-year-old female who is in no acute distress. Alert, awake, and oriented x3. HEENT: Head is atraumatic, normocephalic. Eyes: Pupils are equal, reactive to light and accommodation. Oropharynx is clear. Mucosa moist. Neck: Supple. No JVD, no bruits bilaterally. Cardiovascular: Regular rate and rhythm. No murmur. Respiratory: Clear to auscultation bilaterally. Abdomen: Soft, nontender. Bowel sounds present in all 4 quadrants. Extremities: There is no edema. Pulses +2 bilaterally. No clubbing or cyanosis. On evaluation of the skin, the patient has ulceration approximately 5 cm above the left lateral malleolus. There was a deeper ulceration at least stage II of approximately 4 cm in diameter and there are some other skin changes and more superficial ulceration adjacent to that. Overall, the area is approximately 6 cm x 4 cm. The area is not infected. Psychiatric evaluation: The patient is rather forgetful, but alert and oriented x3. No evidence of anxiety or depression. Please note that the patient was also anemic during the hospital stay. Her anemia was noted to be dating back to 2014. The patient had been evaluated by Dr. Cortés as outpatient and placed on vitamin B12, which is going to be continued. I discussed the case of the patient's anemia with Dr. Case during the hospital stay and it was recommended for the patient to continue evaluations with Dr. Cortés as previously started. Please note that this is a short summary of the patient's hospitalization. Please refer to further medical records for details. TIME SPENT: Approximately 45 minutes was spent on the patient's discharge. [id number]/CPS #: [id number] MTDD
== END 2017-09-05 12:38 | DRG 607 ==
LOC: ED 14:47 → MEDTELE 16:54
PROVIDERS: ADMIT Internal Medicine; ATTEND Internal Medicine
PROC: 5A2204Z Restoration of Cardiac Rhythm, Single (ICD-10-PCS; principal; 2017-08-25)
PROC: 0HBLXZX Excision of Left Lower Leg Skin, External Approach, Diagnostic (ICD-10-PCS; 2017-08-27)
DX: C44.729 Squamous cell carcinoma of skin of left lower limb, including hip (principal); N17.9 Acute kidney failure, unspecified; D61.818 Other pancytopenia; E87.70 Fluid overload, unspecified; E87.1 Hypo-osmolality and hyponatremia; I11.0 Hypertensive heart disease with heart failure; I27.20 Pulmonary hypertension, unspecified; E86.0 Dehydration; I48.2 Chronic atrial fibrillation; D64.9 Anemia, unspecified; I08.3 Combined rheumatic disorders of mitral, aortic and tricuspid valves; E11.9 Type 2 diabetes mellitus without complications; L97.229 Non-pressure chronic ulcer of left calf with unspecified severity; I42.8 Other cardiomyopathies; I25.10 Atherosclerotic heart disease of native coronary artery without angina pectoris; D72.819 Decreased white blood cell count, unspecified; E78.5 Hyperlipidemia, unspecified; K21.9 Gastro-esophageal reflux disease without esophagitis; G89.29 Other chronic pain; M54.9 Dorsalgia, unspecified; Z96.641 Presence of right artificial hip joint; I10 Essential (primary) hypertension; H40.9 Unspecified glaucoma; R40.2362 Coma scale, best motor response, obeys commands, at arrival to emergency department; R40.2142 Coma scale, eyes open, spontaneous, at arrival to emergency department; R40.2252 Coma scale, best verbal response, oriented, at arrival to emergency department; R63.0 Anorexia; R10.13 Epigastric pain; Z88.5 Allergy status to narcotic agent; Z88.1 Allergy status to other antibiotic agents; Z88.2 Allergy status to sulfonamides; Z88.6 Allergy status to analgesic agent; Z88.8 Allergy status to other drugs, medicaments and biological substances; Z82.0 Family history of epilepsy and other diseases of the nervous system; Z87.891 Personal history of nicotine dependence; Z98.42 Cataract extraction status, left eye; Z98.41 Cataract extraction status, right eye; Z82.49 Family history of ischemic heart disease and other diseases of the circulatory system; I25.2 Old myocardial infarction; Z68.23 Body mass index [BMI] 23.0-23.9, adult; Z79.82 Long term (current) use of aspirin; Z79.84 Long term (current) use of oral hypoglycemic drugs
CPT/HCPCS: 36415; 71010; 71020; 74000; 74176; 80048; 80053; 80202; 81003; 82550; 82570; 82784; 83540; 83550; 83605; 83690; 83735; 83880; 84100; 84300; 84443; 84484; 84540; 85025; 85610; 85730; 86140; 87040; 88305; 92960; 93005; 93306; 93312; 93325; 99156; 99157; A9270-GY; J2250; J2270; J2310; J2405; J2543; J3010; J3370; J3420; J3475

== ENCOUNTER 2017-11-04 09:58 | Day surgery (SDC) | payer MEDICARE, OTHER ==
[~2017-11-04 09:58] MED LIST: Buffered Lidocaine 0.9% SYRIN* 5 ML/SYR SYRINGE INTRADERM ONE; Dexamethasone IV* 4 MG/ML 1 ML (4 MG) IV SLOW PU ONE; Famotidine IV* 10 MG/ML 2 ML (20 mg) IV ONE
[2017-11-04] MEDS ORDERED: Famotidine IV* 10 MG/ML 2 ML (20 mg) ONE (10:21)
[2017-11-04] MEDS ORDERED: Dexamethasone IV* 4 MG/ML 1 ML (4 MG) ONE (10:22)
[2017-11-04] MEDS ORDERED: Clindamycin 900 MG IVPREMIX(* 900 MG/50 ML SDV IV ONE (10:22)
[2017-11-04] MEDS ORDERED: Midazolam* 1 MG/ML 2 ML VIAL (2 MG) ONE (10:52)
[2017-11-04] MEDS ORDERED: fentaNYL* 50 MCG/ML 2 ML VIAL (100 MCG VIAL) ONE (10:52)
[2017-11-04] MEDS ORDERED: Methylene Blue 0.5 %* 50 MG/10 ML AMP IV ONE (11:31)
[2017-11-04] MEDS ORDERED: Mineral Oil Sterile, TOPICAL* 25 ML BTL ONE ×2 (11:31→11:33)
[2017-11-04] MEDS ORDERED: Lidocaine 1% MPF wEPI 200,000* 30 ML SDV ONE (11:31)
[2017-11-04] MEDS ORDERED: Bupivacaine 0.25% SDV* 30 ML ONE (11:32)
[2017-11-04 15:08] VITALS: BP 152/72
== END 2017-11-04 15:11 | disposition home or self-care (01) ==
LOC: OR 09:58
PROVIDERS: ATTEND Plastic Surgery
DX: C44.729 Squamous cell carcinoma of skin of left lower limb, including hip (principal); L98.9 Disorder of the skin and subcutaneous tissue, unspecified; I48.91 Unspecified atrial fibrillation; Z79.01 Long term (current) use of anticoagulants; E11.9 Type 2 diabetes mellitus without complications; Z79.84 Long term (current) use of oral hypoglycemic drugs; I10 Essential (primary) hypertension; Z79.82 Long term (current) use of aspirin; Z88.2 Allergy status to sulfonamides; Z88.0 Allergy status to penicillin; Z88.5 Allergy status to narcotic agent; Z88.1 Allergy status to other antibiotic agents; Z88.8 Allergy status to other drugs, medicaments and biological substances; Z88.4 Allergy status to anesthetic agent
CPT/HCPCS: 88305; 88331; 88332; A9270-GY; J1100; J2001; J2250; J3010

== ENCOUNTER 2017-12-22 05:25 | Inpatient (IN) | payer MEDICARE, OTHER ==
[2017-12-22] MEDS ORDERED: NS 0.9% 1000 ML* 1,000 ML IV SCH ×2 (05:30→10:13)
[2017-12-22] MEDS ORDERED: Succinylcholine* 20 MG/ML 10 ML VIAL ONE (05:50)
[2017-12-22] MEDS ORDERED: Etomidate* 2 MG/ML 20 ML VIAL (40 MG) ONE (05:50)
[2017-12-22] MEDS ORDERED: hydrALAZINE IV* 20 MG/ML VIAL ONE (06:02)
[2017-12-22 06:04] LABS: ABS Basophils 0.2 10^3/ul (0-0.2); ABS Eosinophils 0.2 10^3/ul (0-0.6); ABS Lymphocytes 2.9 10^3/ul (1.0-4.8); ABS Monocytes 0.9 10^3/ul (0-0.8); ABS Nucleated RBC 0 10^3/ul; Eosinophil % 1.3 % (0-6); Hematocrit 38 % (35-47); Hemoglobin 12.9 g/dl (12.0-16.0); Lymphocyte % 24.2 % (25-47); Mean Corpuscular HGB Conc 34 g/dl (31-36); Mean Corpuscular Hemoglobin 34 pg (27-31); Mean Corpuscular Volume 98 fL (80-97); Mean Platelet Volume 8 um3 (7.4-10.4); Nucleated Red Blood Cells % 0.2; Platelet Count 312 10^3/ul (150-450); Red Blood Count 3.84 10^6/ul (4.0-5.4); Red Cell Distribution Width 13 % (10.5-15); White Blood Count 12.2 10^3/ul (3.5-10.8)
[2017-12-22] MEDS ORDERED: IDARUCIZUMAB* 2.5 GM/50 ML VIAL IV ONE (06:10)
[2017-12-22] MEDS ORDERED: hydrALAZINE IV* 20 MG/ML VIAL IV SLOW PU ONE ×2 (06:10→06:17)
[2017-12-22 06:17] LABS: Urine Appearance Clear; Urine Blood 1+ (Negative); Urine Color Colorless; Urine Ketones Negative (Negative); Urine Protein 2+(100 mg/dL) (Negative); Urine Specific Gravity 1.006 (1.010-1.030); Urine Urobilinogen Negative (Negative)
[2017-12-22 06:19] LABS: EGFR Non-African American 57.5 (>60)
[2017-12-22 06:22] LABS: INR 1.02 (0.77-1.02)
[2017-12-22] MEDS ORDERED: levETIRAcetam IV* 1,000 MG in NS 0.9% 100 ML* 100 ML IVPB ONE (06:30)
[2017-12-22] MEDS ORDERED: hydrALAZINE IV* 20 MG/ML VIAL IV SLOW PU PRN ×2 (07:29→10:13)
--- NOTE | 2017-12-22 08:23 | RAD ---
INDICATION: Intubation in a patient with altered mental status. COMPARISON: Chest x-ray August 27, 2017 TECHNIQUE: Single AP portable view of the chest was obtained. FINDINGS: Image quality is compromised due to the relative inferiority of a portable chest x-ray. There has been interval placement of an endotracheal tube appropriately positioned below the clavicular heads and above the benjamin. There is asymmetric density overlying the right hilum measuring 2.7 cm that appears unchanged when compared to the August 25, 2017 chest x-ray. Otherwise the heart and mediastinum exhibit normal size and contour. The lungs are grossly clear. There is no evidence of a large pleural effusion. Visualized bones are normal for the patient's age. IMPRESSION: Appropriately positioned endotracheal tube without radiographic evidence for acute cardiopulmonary abnormality on this portable chest x-ray.
--- NOTE | 2017-12-22 08:27 | RAD ---
INDICATION: Change in mental status COMPARISON: None TECHNIQUE: Noncontrast axial source images were acquired from the skull base to the vertex. FINDINGS: There is a 7.0 x 4.5 focus of intraparenchymal hemorrhage in the left cerebral hemisphere with associated vasogenic edema and mass effect with sulcal effacement. There is 0.5 cm subfalcine herniation to the right with trapping of the contralateral ventricle. There is mild effacement of the basilar cisterns. There is intraventricular hemorrhage. Underlying chronic ischemic changes present. There are no acute calvarial findings Other: None. IMPRESSION: Large focus of intracerebral hemorrhage left cerebral hemisphere as described with mass effect and intraventricular hemorrhage. Findings were discussed with the emergency department at 0542 hours by the on-call service.
--- NOTE | 2017-12-22 11:34 | HP ---
HISTORY AND PHYSICAL: DATE OF ADMISSION: 12/22/17 ADMITTING PROVIDER: Micky Diaz MD CHIEF COMPLAINT: Altered mental status, nonresponsive, secondary to large intraparenchymal hemorrhage. PRIMARY CARE PROVIDER: Navya Calderon NP, of [place]. HISTORY OF PRESENT ILLNESS: Shelbie Reid is a 75-year-old female with past medical history of coronary artery disease; type 2 diabetes mellitus; hypertension; hyperlipidemia; atrial fibrillation, on Pradaxa; GERD; chronic back pain, who was in her usual state of health, but at 4 a.m. the morning of admission, told her that she felt unwell. She was shortly thereafter found on the ground unresponsive, taken by EMS to [facility] ED where she was at CT, found to be posturing, unresponsive, and was intubated for airway protection. A CT of her head demonstrated an acute parenchymal hemorrhage of the left capone radiata/basal ganglia/thalamus measuring 5.5 cm x 4.7 cm with blood in the lateral third and fourth ventricles. There was subfalcine shift approximately 4.4 mm due to mass effect. Neurosurgeon, Dr. Buck, was consulted. The patient is notably on Pradaxa, was given idarucizumab 5 g to try to reverse the Pradaxa, but no other surgical intervention was indicated. She was started on Keppra 1000 mg IV, given 2 doses of hydralazine to bring down initial blood pressures in the 220s/90s, current blood pressures in 160s to 170s. She is a GCS 4T with decerebrate posturing still. No response to verbal or physical stimuli other than the posturing. Upward going Babinski's. Minimally responsive left pupil and no discernible response to the right pupil. The patient is being transferred to the intensive care unit. Dr. Kumar and this provider explained the very grim prognosis for the patient and the family is wishing to have a little bit of time to bring in family and friends to likely say goodbye to their loved one. PAST MEDICAL HISTORY: Coronary artery disease; type 2 diabetes; hypertension; hyperlipidemia; AFib, on Pradaxa; GERD; chronic back pain; severe right osteoarthritis; status post left calf squamous cell cancer resection within the last few weeks. MEDICATIONS: 1. Magnesium oxide 800 mg p.o. daily. 2. Lisinopril 10 mg p.o. daily. 3. Furosemide 20 mg p.o. daily. 4. Metformin 1000 mg b.i.d. 5. Amlodipine 5 mg p.o. daily. 6. Simvastatin 40 mg p.o. daily. 7. Potassium chloride 10 mEq p.o. b.i.d. 8. Gabapentin 100 mg p.o. q.h.s. 9. Pradaxa 150 mg p.o. b.i.d. 10. Cholecalciferol 2000 units p.o. daily. 11. Aspirin 81 mg p.o. daily. 12. Amiodarone 200 mg p.o. daily. 13. Acetaminophen 650 mg p.o. q.4 hours p.r.n. 14. MiraLAX 17 g p.o. daily. 15. Zofran 4 mg p.o. q.6 hours p.r.n. ALLERGIES: Anaphylaxis to SULFA, does not tolerate Medihoney, BACITRACIN, MUPIROCIN, SANTYL, SALINE WOUND CLEANSER, OXYCODONE, PERCOCET, HYDROCODONE, TRAMADOL, LIDOCAINE. FAMILY HISTORY: Noncontributory. SOCIAL HISTORY: The patient is a former smoker. She is accompanied by family including son, Primo Reid and Amy Weeks , who are her surrogate medical decision makers. Lives with her , who has dementia. REVIEW OF SYSTEMS: Not obtainable at this time given GCS 4T. PHYSICAL EXAMINATION GENERAL: The patient is acutely ill, intubated, decerebrate, posturing. VITAL SIGNS: Blood pressure initially 229/96, currently 174/54; temperature 95.4; heart rate 55; satting 100%; while intubated, heart rate 55. HEENT: Normocephalic, atraumatic. No evidence of head trauma. Pupils 2.5 mm, minimally reactive on the left. No discernible reaction on the right. Currently intubated. PULMONARY: Anteriorly clear to auscultation with no wheezing, rales, or rhonchi. CARDIOVASCULAR: Regular rate and rhythm. No murmurs, rubs, or gallops. ABDOMEN: Soft, nontender, nondistended. EXTREMITIES: Warm and well perfused. No peripheral edema. Bandage on the left anterior calf with no strike-through decerebrate posturing, upward going Babinski's. DIAGNOSTIC STUDIES/LAB DATA: White count 12.2, hemoglobin 12.9, hematocrit 38 , platelets 312. INR 1.02. Sodium 135, potassium hemolyzed, chloride 98, carbon dioxide 26, BUN 16, creatinine 0.95, glucose 354. INR 1.02. AB.48 , PCO2 35, PO2 64, bicarb 27.0. ALT 47, alk phos 47. Troponins 0.01. Urinalysis 2+ protein, 1+ blood, 3+ rbc's, 3+ glucose. Imaging: As described in HPI with large intraparenchymal hemorrhage. ASSESSMENT AND PLAN: Shelbie Reid is a 75-year-old female with history of paroxysmal atrial fibrillation, on Pradaxa, who presents with altered mental status, unresponsiveness, decerebrate posturing, and is now found to have a large left-sided intraparenchymal hemorrhage with mass effect. Appreciate Neurosurgery's recommendations. No surgical intervention at this time. We will continue Keppra 1000 mg b.i.d. She is currently intubated. GCS 4T. She is being transferred to the ICU. Very grim prognosis was shared with family and they are taking this opportunity to bring in the friends and family given the expected poor prognosis to say goodbye. Care will be transferred over to program rep, Dr. Mina Weinstein, to assist with management. She is already status post idarucizumab 5 mg for Pradaxa reversal. Continue neuro checks in the ICU. There are already very poor prognostic indicators, suspect family will be making decision to make the patient full comfort care within the next 24 hours. The patient did have a DNR reportedly as part of her outpatient wishes. [id number]/CPS #: [id number] [facility]
[2017-12-22] MEDS: Chlorhexidine MOUTHWASH 0.12%* 15 ML UDC TOPICAL SCH ×2 (12:00→16:04)
[2017-12-22] MEDS ORDERED: Morphine PCA ADULT* 5 MG/ML 30 ML PCA SCH (12:00)
[2017-12-22] MEDS ORDERED: Insulin REGULAR(*) 1 UNITS UNIT IV PUSH ONE (12:56)
--- NOTE | 2017-12-22 12:57 | CONS ---
CONSULTATION NOTE: DATE OF CONSULT: 12/22/17 HISTORY OF PRESENT ILLNESS: The patient is a very pleasant 77-year-old female who was brought to the emergency room by ambulance. She is reported to have woken up earlier today, told the she was not feeling well, and then she had an episode of collapse to floor with altered mental status and become unresponsive. The patient was brought to the emergency room by ambulance, requested to see the patient by emergency room physician regarding CT scan findings consistent with large left hemispheric intracranial hemorrhage with intraventricular extension. Patient was on aspirin and Pradaxa for atrial fibrillation. No history of seizures. No urinary or GI incontinence. The patient was in her usual state of health yesterday, but as stated above woke up earlier today, told the that she was not feeling well and then she collapsed to the floor. History was obtained from the patient's family at the bedside as well ED physician and patient's chart. The patient was intubated in the ED prior to the patient's examination. PAST MEDICAL HISTORY: Atrial fibrillation, squamous cell carcinoma. PAST SURGICAL HISTORY: Squamous cell carcinoma resection on her thigh. MEDICATIONS: The patient is on several medications includin. Pradaxa. 2. Aspirin. 3. Tylenol. 4. Amiodarone. 5. Vitamin B3 6. Furosemide. 7. Gabapentin. 8. Lisinopril. 9. Magnesium. 10. Zofran 11. Simvastatin 12. Amlodipine. 13. Metformin. ALLERGIES: Known possible adverse reactions to antibiotics, not specified. FAMILY HISTORY: Noncontributory. SOCIAL HISTORY: Tobacco negative. Alcohol negative. Recreational drug use negative. PHYSICAL EXAM: The patient is intubated on the ventilator. She was reported to have a blood pressure of 210/80. She is afebrile. After some time blood pressure is 160/59, heart rate 53, respiratory rate 19 on the ventilator and 100 % pulse oximeter. Patient does not open her eyes to pain. She is intubated, does not follow commands. Her pupils are 3 mm, nonreactive. She has no gag reflex. No cough reflex. She has mild corneal reflex on the right and almost absent on the left. She will weakly decerebrate to pain with the upper extremities and lower extremities, no response. Does not withdraw to pain in the extremity. Deep tendon reflexes +2 bilaterally. The patient has no clonus , but has bilateral Babinski. DIAGNOSTIC STUDIES/LAB DATA: WBC 12.2, hematocrit 38, platelet count 312, INR 1.02. APTT 42.3. Sodium 135. Studies: The patient had the CT scan of the brain revealing a large left intraparenchymal hemorrhage extending from the thalamus and basal ganglia with surrounding edema and intraventricular extension with hydrocephalus as well as left- right midline shift. ASSESSMENT: The patient is pleasant 77-year-old female with history of atrial fibrillation who was on the Pradaxa and aspirin, who was reported to have altered mental status with a CT scan finding consistent with large intracranial hemorrhage with intraventricular extension and hydrocephalus. PLAN: The patient was intubated in the emergency room, was given Kcentra in order to reverse patient's coagulopathy and was scheduled for Keppra. Discussed in extent the patient's clinical condition and radiological findings with patient's , daughter, and son at the bedside. The patient's ICH score is 4, which carries a mortality rate of 97%. Discussed prognosis as well as patient's wishes. According to the family patient would not like to have any surgical interventions at this point. They understand the severity of the prognosis and they would not like to proceed with any surgical intervention for both ventriculostomy or craniotomy/craniectomy. The patient will be admitted to unit for medical management who recommended blood pressure control, monitoring coagulation profile, the reversal of coagulation, change of prophylaxis, and blood pressure control would be available as needed. given to the patient's family. Thank you for allowing us to participate in the care of this patient. Please do not hesitate to contact our office in case if you have any other questions or concerns regarding the care of this patient. [id number]/[facility] #: [id number] JERRY
[2017-12-22] MEDS ORDERED: Morphine INJ* 10 MG/ML 1 ML CARPUJECT IV ONE (14:30)
[2017-12-22] MEDS ORDERED: LORazepam INJ* 2 MG/ML 1 ML VIAL IV PUSH ONE (15:00)
[2017-12-22] MEDS ORDERED: LORazepam VIAL (for drip)* 100 MG in D5W 100 ML BAG* 50 ML IVPB SCH (15:00)
[2017-12-22] MEDS ORDERED: LORAZEPAM IVPB SCH (15:00)
[2017-12-22] MEDS ORDERED: NS 0.9% IVPB SCH (15:00)
[2017-12-22 16:06] VITALS: BP 197/67
[2017-12-22] MEDS ORDERED: LEVETIRACETAM IVPB SCH (20:00)
[2017-12-22] MEDS ORDERED: D5W IVPB SCH (20:00)
--- NOTE | 2017-12-23 06:15 | ED ---
Adrian Ariza Thomas, scribed for Evan Chawla on 12/22/17 at 0531 . Neurological HPI - HPI Summary HPI Summary: (Initial evaluation at the charge nurse desk at 05:23) The patient is a 77 year old female brought in by ambulance. According to EMS, the patient was sleeping when she woke up, told her she couldnt move, spoke a couple sentences, and then fell to the floor from the bed. In the emergency department, she is snoring and does not respond to questions. She is not responsive to a sternal rub. There are no obvious injuries. The patient will be sent to the CT scanner for a stat CT. (I spoke with the patients family when they arrived at [facility] at 05:48.) I spoke with the patients daughter and . They confirm that she is on ASA and Pradaxa for A-Fib. They report that she woke up this morning and said she didnt feel well before falling on the floor. The patient was fine yesterday. The patient remains unresponsive. LEVEL 5 CAVEAT: HPI limited by unresponsive patient - History of Current Complaint Stated Complaint: POSS CODE BE Time Seen by Provider: 12/22/17 05:25 Hx Obtained From: EMS Onset/Duration: Started minutes ago - shortly prior to arrival, Still Present Timing: Constant Current Severity: Severe - Allergy/Home Medications Allergies/Adverse Reactions: Allergies Allergy/AdvReac Type Severity Reaction Status Date / Time Bacitracin Allergy Severe burning Verified 11/04/17 10:33 sensation of skin Collagenase [From Santyl] Allergy Severe burning Verified 11/04/17 10:33 sensation of skin Lidocaine Allergy Severe burning Verified 11/04/17 10:33 sensation of skin Mupirocin Allergy Severe burning Verified 11/04/17 10:33 sensation of skin Sulfa Drugs Allergy Severe Difficulty Verified 11/04/17 10:33 Breathing Hydrocodone Allergy Intermediate Altered Verified 11/04/17 10:33 Mental Status Oxycodone [From Percocet] AdvReac Mild Nausea And Verified 11/04/17 10:33 Vomiting Tramadol AdvReac Mild Nausea Verified 11/04/17 10:33 medihoney Allergy Severe burning Uncoded 11/04/17 10:33 sensation of skin unaboot Allergy Severe burning Uncoded 11/04/17 10:33 sensation of skin Home Medications: Home Medications Acetaminophen TAB* [Tylenol TAB*] 650 mg PO Q4H PRN 12/22/17 [History Confirmed 12/22/17] Amiodarone HCl 200 mg PO DAILY 12/22/17 [History Confirmed 12/22/17] Aspirin Low Dose CHEW TAB* [Aspirin Low Dose TAB*] 81 mg PO DAILY 12/22/17 [ History Confirmed 12/22/17] Cholecalciferol [Vitamin D3] 2,000 unit PO DAILY 12/22/17 [History Confirmed ] Dabigatran CAP(NF) [Pradaxa CAP(NF)] 150 mg PO BID 12/22/17 [History Confirmed 12/22/17] Furosemide TAB* [Lasix TAB*] 20 mg PO DAILY 12/22/17 [History Confirmed 12/22/17 ] Gabapentin CAP(*) [Neurontin 100 mg CAP(*)] 100 mg PO BEDTIME 12/22/17 [History Confirmed 12/22/17] Lisinopril TAB* [Prinivil TAB*] 10 mg PO DAILY 12/22/17 [History Confirmed 12/22] Magnesium Oxide TAB* [MagOx 400 TAB*] 800 mg PO DAILY 12/22/17 [History Confirmed 12/22/17] Ondansetron ODT TAB* [Zofran 4 MG Odt TAB*] 4 mg PO Q6H PRN 12/22/17 [History Confirmed 12/22/17] Polyethylene Glycol 3350* [Miralax*] 17 gm PO DAILY PRN 12/22/17 [History Confirmed 12/22/17] Potassium Chlor TAB* [Klor Con ER TAB*] 10 meq PO BID 12/22/17 [History Confirmed 12/22/17] Simvastatin TAB(NF) [Zocor(NF)] 40 mg PO 1700 12/22/17 [History Confirmed ] amLODIPine TAB* [Norvasc 5 mg TAB*] 5 mg PO DAILY 12/22/17 [History Confirmed ] metFORMIN* [Glucophage 500 MG TAB *] 1,000 mg PO 0800,1700 12/22/17 [History Confirmed 12/22/17] PMH/Surg Hx/FS Hx/Imm Hx Cardiovascular History: Reports: Hx Atrial Fibrillation Review of Systems - ROS Summary Review of Systems Summary: LEVEL 5 CAVEAT: ROS limited by unresponsive patient Neurological: Other - Unresponsive, snoring All Other Systems Reviewed And Are Negative: No Physical Exam - Summary Physical Exam Summary: Appearance: unconscious. Skin: warm, dry, reflects adequate perfusion Head/face: normal Eyes: Her pupils are fixed at 4mm. ENT: normal Neck: There is a C-collar applied. Respiratory: CTA, breath sounds present Cardiovascular: The heart is irregularly irregular. Pulses symmetrical Abdomen: non-tender, soft Bowel: present Musculoskeletal extended Extremities: There is no edema. Neuro: unconscious. LEVEL 5 CAVEAT: PHYICAL EXAM limited by unresponsive patient Triage Information Reviewed: Yes Vital Signs On Initial Exam: Initial Vitals Temp Pulse Resp BP Pulse Ox 94.5 F 55 24 00/00 95 12/22/17 05:30 12/22/17 05:30 12/22/17 05:30 12/22/17 05:30 12/22/17 05:30 Vital Signs Reviewed: Yes Procedures - Intubation Intubation Method: orotracheal Tube Size (cm): 7.0 Medications: Succinylcholine Breath Sounds after Intubation: equal Intubation Complications: no complications Post Intubation Xray: Yes - ET tube in place Diagnostics - Vital Signs Vital Signs Temp Pulse Resp BP Pulse Ox 12/22/17 06:40 94.5 F 53 19 163/59 100 12/22/17 06:30 94.8 F 56 17 180/69 100 12/22/17 06:25 94.6 F 60 18 193/65 100 12/22/17 06:20 94.8 F 60 21 202/58 100 12/22/17 06:15 94.8 F 53 19 200/82 100 12/22/17 06:00 94.5 F 81 18 221/97 100 12/22/17 05:57 94.6 F 96 22 229/96 99 12/22/17 05:52 94.5 F 61 23 94 12/22/17 05:30 94.5 F 55 24 00/00 95 - Laboratory Lab Results: Lab Results 12/22/17 12/22/17 12/22/17 Range/Units 05:50 05:50 05:50 WBC 12.2 H (3.5-10.8) 10^3/ul RBC 3.84 L (4.0-5.4) 10^6/ul Hgb 12.9 (12.0-16.0) g/dl Hct 38 (35-47) % MCV 98 H (80-97) fL MCH 34 H (27-31) pg MCHC 34 (31-36) g/dl RDW 13 (10.5-15) % Plt Count 312 (150-450) 10^3/ul MPV 8 (7.4-10.4) um3 Neut % (Auto) 66.0 (38-83) % Lymph % (Auto) 24.2 L (25-47) % [place] % (Auto) 7.2 (1-9) % Eos % (Auto) 1.3 (0-6) % Baso % (Auto) 1.3 (0-2) % Absolute Neuts (auto) 8.0 H (1.5-7.7) 10^3/ul Absolute Lymphs (auto) 2.9 (1.0-4.8) 10^3/ul Absolute Monos (auto) 0.9 H (0-0.8) 10^3/ul Absolute Eos (auto) 0.2 (0-0.6) 10^3/ul Absolute Basos (auto) 0.2 (0-0.2) 10^3/ul Absolute Nucleated RBC 0 10^3/ul Nucleated RBC % 0.2 INR (Anticoag Therapy) 1.02 (0.77-1.02) APTT 42.3 H (26.0-36.3) seconds Patient Temperature Not Reportable ABG pH 7.48 H (7.35-7.45) ABG pH (Temp Correct) Not Reportable ABG pCO2 35 (35-45) mmHg ABG pCO2 (Temp Corrct Not Reportable ABG pO2 64 L (80-100) mmHg ABG pO2 (Temp Correct Not Reportable ABG HCO3 27.0 (19-31) mmol/L ABG O2 Saturation 96.2 (95-98) % ABG Base Excess 2.8 H (-2.0-2.0) Respiration Rate Not Reportable Ventilator Type Not Reportable Vent Mode Not Reportable FiO2 30 Inspiratory Time Not Reportable PEEP Not Reportable Pressure Support Not Reportable Pressure Control Not Reportable EPAP Not Reportable IPAP Not Reportable BiPAP Not Reportable Sodium (133-145) mmol/L Potassium Chloride (101-111) mmol/L Carbon Dioxide (22-32) mmol/L Anion Gap (2-11) mmol/L BUN (6-24) mg/dL Creatinine (0.51-0.95) mg/dL Est GFR ( Amer) (>60) Est GFR (Non-Af Amer) (>60) BUN/Creatinine Ratio (8-20) Glucose (70-100) mg/dL Calcium (8.6-10.3) mg/dL Total Bilirubin (0.2-1.0) mg/dL AST ALT (7-52) U/L Alkaline Phosphatase (34-104) U/L Troponin I (<0.04) ng/mL Total Protein (6.4-8.9) g/dL Albumin (3.2-5.2) g/dL Globulin (2-4) g/dL Albumin/Globulin Ratio (1-3) Urine Color Urine Appearance Urine pH (5-9) Ur Specific [place] (1.010-1.030) Urine Protein (Negative) Urine Ketones (Negative) Urine Blood (Negative) Urine Nitrate (Negative) Urine Bilirubin (Negative) Urine Urobilinogen (Negative) Ur Leukocyte Esterase (Negative) Urine WBC (Auto) (Absent) Urine RBC (Auto) (Absent) Urine Bacteria (Absent) Urine Glucose (Negative) Blood Type Antibody Screen 12/22/17 12/22/17 12/22/17 Range/Units 05:50 05:50 05:59 WBC (3.5-10.8) 10^3/ul RBC (4.0-5.4) 10^6/ul Hgb (12.0-16.0) g/dl Hct (35-47) % MCV (80-97) fL MCH (27-31) pg MCHC (31-36) g/dl RDW (10.5-15) % Plt Count (150-450) 10^3/ul MPV (7.4-10.4) um3 Neut % (Auto) (38-83) % Lymph % (Auto) (25-47) % [place] % (Auto) (1-9) % Eos % (Auto) (0-6) % Baso % (Auto) (0-2) % Absolute Neuts (auto) (1.5-7.7) 10^3/ul Absolute Lymphs (auto) (1.0-4.8) 10^3/ul Absolute Monos (auto) (0-0.8) 10^3/ul Absolute Eos (auto) (0-0.6) 10^3/ul Absolute Basos (auto) (0-0.2) 10^3/ul Absolute Nucleated RBC 10^3/ul Nucleated RBC % INR (Anticoag Therapy) (0.77-1.02) APTT (26.0-36.3) seconds Patient Temperature ABG pH (7.35-7.45) ABG pH (Temp Correct) ABG pCO2 (35-45) mmHg ABG pCO2 (Temp Corrct ABG pO2 (80-100) mmHg ABG pO2 (Temp Correct ABG HCO3 (19-31) mmol/L ABG O2 Saturation (95-98) % ABG Base Excess (-2.0-2.0) Respiration Rate Ventilator Type Vent Mode FiO2 Inspiratory Time PEEP Pressure Support Pressure Control EPAP IPAP BiPAP Sodium 135 (133-145) mmol/L Potassium TNP Chloride 98 L (101-111) mmol/L Carbon Dioxide 26 (22-32) mmol/L Anion Gap 11 (2-11) mmol/L BUN 16 (6-24) mg/dL Creatinine 0.95 (0.51-0.95) mg/dL Est GFR ( Amer) 74.0 (>60) Est GFR (Non-Af Amer) 57.5 (>60) BUN/Creatinine Ratio 16.8 (8-20) Glucose 354 H (70-100) mg/dL Calcium 10.1 (8.6-10.3) mg/dL Total Bilirubin 0.60 (0.2-1.0) mg/dL AST TNP ALT 47 (7-52) U/L Alkaline Phosphatase 47 (34-104) U/L Troponin I 0.01 (<0.04) ng/mL Total Protein 7.6 (6.4-8.9) g/dL Albumin 4.6 (3.2-5.2) g/dL Globulin 3.0 (2-4) g/dL Albumin/Globulin Ratio 1.5 (1-3) Urine Color Colorless Urine Appearance Clear Urine pH 8.0 (5-9) Ur Specific [place] 1.006 L (1.010-1.030) Urine Protein 2+(100 mg/dl) H (Negative) Urine Ketones Negative (Negative) Urine Blood 1+ H (Negative) Urine Nitrate Negative (Negative) Urine Bilirubin Negative (Negative) Urine Urobilinogen Negative (Negative) Ur Leukocyte Esterase Negative (Negative) Urine WBC (Auto) Absent (Absent) Urine RBC (Auto) 3+(>10/hpf) H (Absent) Urine Bacteria Absent (Absent) Urine Glucose 3+(>=500 mg/dl) H (Negative) Blood Type AB Positive Antibody Screen Negative Result Diagrams: 12/22/17 05:50 12/22/17 08:15 Lab Statement: Any lab studies that have been ordered have been reviewed, and results considered in the medical decision making process. - Radiology CXR Xray Interpretation: No Acute Changes - ET Tube is in place. Results relayed to me over the phone. Radiology Interpretation Completed By: Radiologist - CT CT Brain CT Interpretation: Positive (See Comments) - Positive for an acute parenchymal hemorrhage of the left capone radii/basal ganglia/thalamus measuring approximately 5.5 cm x 4.7 cm. Blood has broken into the ventricles. There is blood in the lateral third and fourth ventricles. There is a subfalcine shift of approximately 4.4 mm due to the mass effect of the parenchymal component. The ventricles are dilated likely due to ventricular outlet obstruction from the blood. Chronic microvascular changes are noted in the cerebral white matter. CT Interpretation Completed By: Radiologist NIH Scale - NIH Scale Level of Consciousness: Only Reflex Motor/Unresponsive Ask Patient the Month and His/Her Age: Neither Correct/Aphasic Ask Pt to Open/Close Eyes and Curriculum Writer/Release Non-Paretic Hand: Both Correctly Best Gaze (Only Horizontal Eye Movement): Partial Gaze Palsy Visual Field Testing: No Visual Loss Facial Paresis-Pt to Smile & Close Eyes or Grimace Symmetry: Normal/Symmetrical Motor Function - Right Arm: No Movement Motor Function - Left Arm: No Movement Motor Function - Right Leg: No Movement Motor Function - Left Leg: No Movement Limb Ataxia-Must be out of Proportion to Weakness Present: Present in Two Limbs Sensory (Use Pinprick to Test Arms/Legs/Trunk/Face): Severe to Total Loss Best Language (Describe Picture, Name Items): No Aphasia Dysarthria (Read Several Words): Unintelligible or Mute Extinction and Inattention: Profound Xavier-Inattention Total Score: 30 Course/Dx - Course Assessment/Plan: The patient is a 77 year old female brought in by ambulance. According to EMS, the patient was sleeping when she woke up, told her she couldnt move, spoke a couple sentences, and then fell to the floor from the bed. In the emergency department, she is snoring and does not respond to questions. CT Brain shows an intracranial hemorrhage. I paged Dr. Davis, neurosurgery, at 05:39, as soon as I saw the intracranial hemorrhage. He returned the call at 05:49. He informed me to give the antidote for Pradexa, intubate, and symptomatically treat. I explained to the family that this is a massive bleed and the patients condition is critical. I explained that there is a poor prognosis for this massive bleed. The patient was intubated. The patient will be admitted to Dr. Magallon. 75 minutes critical care time. - Differential Dx Differential Diagnoses Neuro: Positive: Cerebrovascular Accident, Intracranial Bleed, Metabolic Abnormality, Transient Ischemic Attack, Vasovagal Reaction - Diagnoses Provider Diagnoses: Intracranial bleed, Altered mental status - Physician Notifications Discussed Care Of Patient With: Ryan Time Discussed With Above Provider: 05:49 Instructed by Provider To: Other - I paged Dr. Davis, neurosurgery, at 05: 39, as soon as I saw the intracranial hemorrhage. He returned the call at 05: 49. He informed me to give the antidote for Pradexa, intubate, and symptomatically treat. The patient will be admitted to Dr. Magallon. - Critical Care Time Critical Care Time: 75-104 min Discharge - Discharge Plan Condition: Critical Disposition: ADMITTED TO [facility] documentation as recorded by the Adrian portillo Thomas accurately reflects the service I personally performed and the decisions made by me, Evan Chawla.
== END 2017-12-22 16:23 | disposition expired | DRG 64 ==
LOC: EDBD → ED 05:25 → MERGE 05:25 → ICU 07:15
PROVIDERS: ADMIT Internal Medicine; ATTEND Internal Medicine Critical Care Medicine
PROC: 0BH17EZ Insertion of Endotracheal Airway into Trachea, Via Natural or Artificial Opening (ICD-10-PCS; principal; 2017-12-22)
PROC: 5A1935Z Respiratory Ventilation, Less than 24 Consecutive Hours (ICD-10-PCS; 2017-12-22)
DX: I61.8 Other nontraumatic intracerebral hemorrhage (principal); G93.6 Cerebral edema; I48.0 Paroxysmal atrial fibrillation; E11.9 Type 2 diabetes mellitus without complications; Z79.01 Long term (current) use of anticoagulants; I25.10 Atherosclerotic heart disease of native coronary artery without angina pectoris; I11.9 Hypertensive heart disease without heart failure; Z79.84 Long term (current) use of oral hypoglycemic drugs; E78.5 Hyperlipidemia, unspecified; K21.9 Gastro-esophageal reflux disease without esophagitis; M54.9 Dorsalgia, unspecified; M19.90 Unspecified osteoarthritis, unspecified site; C44.729 Squamous cell carcinoma of skin of left lower limb, including hip; Z79.1 Long term (current) use of non-steroidal anti-inflammatories (NSAID); Z79.82 Long term (current) use of aspirin; Z79.899 Other long term (current) drug therapy; Z88.4 Allergy status to anesthetic agent; Z88.1 Allergy status to other antibiotic agents; Z88.5 Allergy status to narcotic agent; Z88.2 Allergy status to sulfonamides; Z88.8 Allergy status to other drugs, medicaments and biological substances; Z87.891 Personal history of nicotine dependence
CPT/HCPCS: 36415; 36600; 70450; 71045; 80053; 81003; 81015; 82803; 82947; 84484; 85025; 85610; 85730; 86850; 86900; 86901; 87641; 93005; 94002; 94003; A9270-GY; J0330; J0360; J2060; J2270